=== PATIENT | male | born 1960 | race Caucasian/White ===

== ENCOUNTER 2022-05-02 22:08 | Observation (INO) | payer OTHER, SELFPAY ==
[2022-05-02 22:24] VITALS: BP 126/81; PULSE 84; RESP 16; TEMP 37.3; O2SAT 97; BMI 35.2
--- NOTE | 2022-05-02 22:42 | ED_ITS ---
HPI - Skin/Abscess/Foreign Bdy General Chief complaint: Skin/Abscess/Foreign Body Stated complaint: food stuck in throat Time Seen by Provider: 05/02/22 22:29 Source: patient Mode of arrival: Ambulatory History of Present Illness HPI narrative: 61-year-old male was eating ribs earlier this evening he states that he swallowed a piece in a cut stuck in his throat. This has happened to him in the past. He states that is because he does not have any teeth does not like to wear dentures and so he does not chew his food completely. He is needed endoscopies in the past in order to remove the food bolus. He feels like food is stuck in his upper throat. No problems breathing. At home he tried multiple things to include more water and soda without improvement of symptoms. Related Data Allergies Allergy/AdvReac Type Severity Reaction Status Date / Time No Known Drug Allergies Allergy Verified 05/02/22 22:24 Review of Systems Constitutional Constitutional: Reports system reviewed and no additional complaints, except as documented Cardiovascular Cardiovascular: Reports system reviewed and no additional complaints, except as documented Respiratory Respiratory: Reports system reviewed and no additional complaints, except as documented Gastrointestinal Gastrointestinal: Reports system reviewed and no additional complaints, except as documented Hematologic/Lymphatic On Anticoagulants: No Patient History Medical History Lymphoma Social History Smoking Status: Never smoker Smoking Status: Never smoker Substance Use Type: does not use Exam Initial Vital Signs Initial Vital Signs: Vital Signs Temperature 99.1 F 05/02/22 22:24 Pulse Rate 84 05/02/22 22:24 Respiratory Rate 16 05/02/22 22:24 Blood Pressure 126/81 05/02/22 22:24 Pulse Oximetry 97 05/02/22 22:24 Oxygen Delivery Method 05/02/22 22:24 HENMT Head: normal to inspection and normocephalic Resp Effort & Inspection: normal respiratory effort Auscultation: clear to auscultation bilaterally Cardio Rate: regular rate Rhythm: regular rhythm GI Inspection: normal to inspection Neuro General: patient alert, patient awake and moves all extremities Course Orders Ordered: ED Orders 05/02/22 22:50 Basic Metabolic Panel Stat Complete Blood Count AUTO DIFF Stat 05/02/22 23:27 Consult to General Surgery Stat 05/02/22 23:35 COVID19 -Nasal RAPID/Pre-Proc Stat Discontinued Medications Glucagon (Glucagon,Human Recombinant 1 Mg/Ml Vial) 1 mg IV NOW ONE Stop: 05/02/22 22:43 Last Admin: 05/02/22 23:00 Dose: 1 mg Documented By: SHIVANI Vital Signs Vital signs: Vital Signs - 8 hr 05/03/22 02:46 Pulse Rate 70 Respiratory Rate 18 Blood Pressure 127/78 Pulse Oximetry 94 Oxygen Delivery Method Room Air MDM - Skin/Abscess/Foreign Bdy Lab Data Attestation: I reviewed the patient's lab results. Result diagrams: 05/02/22 22:50 05/02/22 22:50 Labs: Lab Results 05/02/22 05/02/22 05/02/22 Range/Units 22:50 22:50 23:35 WBC 23.6 H (4.5-11.0) X10^3/uL RBC 3.80 L (4.5-5.9) X10^6/uL Hgb 11.6 L (13.5-17.5) g/dL Hct 34.7 L (41-53) % MCV 91.4 (80-100) fL MCH 30.4 (26-34) PG MCHC 33.3 (30-36) % RDW 20.8 H (11.6-14.8) % Plt Count 151 (150-400) X10^3/uL Neut % (Auto) Not Reportable Lymph % (Auto) Not Reportable [place] % (Auto) Not Reportable Eos % (Auto) Not Reportable Baso % (Auto) Not Reportable Lymph # (Auto) Not Reportable [place] # (Auto) Not Reportable Baso # (Auto) Not Reportable Total Counted 100 Seg Neutrophils % 10.0 L (38-70) % Lymphocytes % (Manual) 78.0 H (25-45) % Atypical Lymphs % 1.0 H ( - 0) % Monocytes % (Manual) 3.0 (2-11) % Eosinophils % (Manual) 7.0 H (2-4) % Basophils % (Manual) 1.0 (0-1) % Neutrophils # (Manual) 2360 L (7014-8787) /uL RBC Morphology See below Anisocytosis 2+ H Sodium 140 (137-145) mmol/L Potassium 5.0 (3.4-5.1) mmol/L Chloride 102 (98-107) mmol/L Carbon Dioxide 31 (22-32) mmol/L BUN 19 (9-20) mg/dL Creatinine 1.68 H (0.66-1.25) mg/dL Estimated GFR 46 L (>60) mL/min BUN/Creatinine Ratio 11.3 (6-22) Glucose 96 (80-110) mg/dL Calcium 9.7 (8.4-10.2) mg/dL SARS-CoV-2 (PCR) Negative (Negative) MDM Narrative Medical decision making narrative: Attempted glucagon here in the ER without any improvement of symptoms. I did discuss the case with Dr. Henry with general surgery who stated that he would evaluate the patient in the morning for an endoscopy. Did discuss this with the patient. Plan to be is to keep in the emergency department for the endoscopy in the morning. Patient will be admitted to surgery for continued treatment. Discharge Plan Departure Patient Disposition: Admitted as Observation Clinical Impression: Food impaction of esophagus
[2022-05-02] MEDS: GLUCAGON,HUMAN RECOMBINANT 1 MG/ML VIAL IV (23:00)
[2022-05-02 23:02] LABS: Hematocrit 34.7 % (41-53); Hemoglobin 11.6 g/dL (13.5-17.5); Mean Corpuscular HGB Conc 33.3 % (30-36); Mean Corpuscular Hemoglobin 30.4 PG (26-34); Mean Corpuscular Volume 91.4 fL (80-100); Platelet Count 151 X10^3/uL (150-400); Red Cell Distribution Width 20.8 % (11.6-14.8); White Blood Cell Count 23.6 X10^3/uL (4.5-11.0)
[2022-05-02 23:04] LABS: Add Manual Diff / Slide Review YES
--- NOTE | 2022-05-02 23:13 | PC.NURSE ---
Gave pt glucagon and soda immediately following. Failed to dislodge food bolus. Provider aware
[2022-05-02 23:25] LABS: BUN Creatinine Ratio 11.3 (6-22); Blood Urea Nitrogen 19 mg/dL (9-20); Calcium 9.7 mg/dL (8.4-10.2); Carbon Dioxide 31 mmol/L (22-32); Chloride 102 mmol/L (98-107); Estimated Glomerular Filt Rate 46 mL/min (>60); Glucose 96 mg/dL (80-110); HEMOLYSIS < 15 (0-50); Sodium 140 mmol/L (137-145)
[2022-05-02 23:36] LABS: Anisocytosis 2+; Neutrophils Absolute Manual 2360 /uL (3000-5900); Total Cells Counted 100
[2022-05-02 23:51] LABS: COVID19 -Nasal RAPID Negative (Negative)
[2022-05-03] VITALS (14 sets, daily range): BP systolic 104–127; BP diastolic 2–80; PULSE 60–70; RESP 16–18; TEMP 36.4–36.9; O2SAT 93–98; BMI 35.2
--- NOTE | 2022-05-03 01:19 | PC.NURSE ---
Pt had been eating ribs and now states food stuck in esophagus. states unable to manage secretions.
--- NOTE | 2022-05-03 13:13 | P.HP_ITS ---
History of Present Illness History of Present Illness Date Patient Seen: 05/03/22 Time Patient Seen: 13:13 Chief complaint: food stuck in throat Narrative: 61-year-old man history of previous esophageal food impaction presented to the emergency room last night with a piece of meat stuck in his throat. He has required previous esophagoduodenoscopy for relief of esophageal impaction. In he is unable to swallow the food but is tolerating his oral secretions. Patient History Medical History Amputation of one or more toes Lymphoma Pacemaker Surgical History History of bowel resection Family & Social History Social History: household members spouse Prior Living Arrangements House Safety & Behavioral: Feels Safe in Current Yes Environment Been Physically Hurt or No Threatened By a Person Tobacco & Substance use: Smoking Status Never smoker alcohol intake never Substance Use Type does not use Meds Home Medications and Allergies Allergies Allergy/AdvReac Type Severity Reaction Status Date / Time No Known Drug Allergies Allergy Verified 05/03/22 12:28 Exam Vital Signs (past 8 hours): - 05/03/22 08:23 05/03/22 08:24 05/03/22 08:24 Temperature 97.7 F Pulse Rate 67 66 Respiratory Rate 16 Blood Pressure 120/76 120/76 Pulse Oximetry 94 94 Oxygen Delivery Method 05/03/22 08:30 05/03/22 08:30 05/03/22 10:00 Temperature Pulse Rate 66 61 Respiratory Rate 18 Blood Pressure 112/66 120/76 Pulse Oximetry 94 96 Oxygen Delivery Method Room Air 05/03/22 12:00 Temperature 97.6 F Pulse Rate 67 Respiratory Rate 16 Blood Pressure 120/80 Pulse Oximetry 96 Oxygen Delivery Method Room Air Oxygen Delivery Method Room Air Narrative Exam Narrative: General adult male alert oriented no acute distress Chest nonlabored respirations Extremities warm well perfused Objective Labs Result Diagrams: 05/02/22 22:50 05/02/22 22:50 Labs: Laboratory Results - last 24 hr 05/02/22 05/02/22 05/02/22 22:50 22:50 23:35 WBC 23.6 H RBC 3.80 L Hgb 11.6 L Hct 34.7 L MCV 91.4 MCH 30.4 MCHC 33.3 RDW 20.8 H Plt Count 151 Neut % (Auto) Not Reportable Lymph % (Auto) Not Reportable [place] % (Auto) Not Reportable Eos % (Auto) Not Reportable Baso % (Auto) Not Reportable Lymph # (Auto) Not Reportable [place] # (Auto) Not Reportable Baso # (Auto) Not Reportable Total Counted 100 Seg Neutrophils % 10.0 L Lymphocytes % (Manual) 78.0 H Atypical Lymphs % 1.0 H Monocytes % (Manual) 3.0 Eosinophils % (Manual) 7.0 H Basophils % (Manual) 1.0 Neutrophils # (Manual) 2360 L RBC Morphology See below Anisocytosis 2+ H Sodium 140 Potassium 5.0 Chloride 102 Carbon Dioxide 31 BUN 19 Creatinine 1.68 H Estimated GFR 46 L BUN/Creatinine Ratio 11.3 Glucose 96 Calcium 9.7 SARS-CoV-2 (PCR) Negative Assessment & Plan Assessment and plan (1) Food impaction of esophagus: Status: Acute Assessment & Plan narrative: 61-year-old man with a food impaction of esophagus. Recommended that we proceed with esophagoduodenoscopy for therapeutic purpose. Procedural risks were discussed including bleeding, esophageal perforation, recurrence. His questions have been answered he is in agreement with this plan. Time Spent With Patient Critical Care time: I spent a total of [] minutes of critical care time on this patient's care today; this time is exclusive of procedural time.
--- NOTE | 2022-05-03 15:03 | PM.OP.EGD ---
Operative Date/Time/Diagnoses Date of procedure: 05/03/22 Time of procedure: 15:03 Pre-op diagnosis: esophageal food impaction Post-op diagnosis: same Procedure & Clinicians Study performed: Esophagoduodenoscopy with removal of impacted food bolus Same procedure as scheduled: Yes Indications: esophageal food impaction Surgeon: Kavin Henry Procedure Notes Procedure in detail: Patient brought to the supine on table. Bilateral lower extremity compression devices were applied. General anesthesia was induced she was intubated with an endotracheal tube. Time-out was performed. Bite block was placed. The endoscope was inserted into the mouth and carefully advanced to the esophagus. In the mid esophagus there was a large bolus of tightly impacted meat product. Using a combination of forceps and net the impaction was removed in pieces. Subsequently the remainder of the material could be advanced into the stomach. There were esophageal mucosal erosions in the mid/distal esophagus no active bleeding. The scope was withdrawn. The patient tolerated the operation well. Specimen(s): none sent Complications: none Post-procedure Plan for aftercare: Food should be well chewed Disposition: same day surgery
[2022-05-03] MEDS: ALBUTEROL 2.5 MG/3 ML NEB (ADULT) INH (16:48)
--- NOTE | 2022-05-03 16:48 | SUR.PHASEI ---
1640 called and LM for Dr Henry reported pt was unable to maintain 02 sats pt on RA - . Pt given IS to open and expand lungs, short term effective and 02 sats dropped soon after to - oximeter. Pt was given a albuterol tx . and same results pt had little improvement after neb tx.
--- NOTE | 2022-05-03 17:04 | SUR.PHASEI ---
1700 with continuous observation pt improved with 02 sat 92-[address] Sim at bedside to evaluate and okayed pt to go home.
== END 2022-05-03 17:10 | disposition home or self-care (01) ==
LOC: ED 05-03 07:19 → AC 05-03 08:50
PROVIDERS: Admitting Provider Surgery; Emergency Provider Emergency Medicine; PCP Internal Medicine; Referring Provider Emergency Medicine; Visit Provider Surgery
PROC: 0DJ08ZZ Inspection of Upper Intestinal Tract, Via Natural or Artificial Opening Endoscopic (ICD-10-PCS; CPT 43235; principal; 2022-05-03 12:45)
DX: T17.228A Food in pharynx causing other injury, initial encounter (principal); R00.1 Bradycardia, unspecified; Z95.0 Presence of cardiac pacemaker; Z20.822 Contact with and (suspected) exposure to COVID-19
CPT/HCPCS: 43247; 36415; 80048; 85007; 85025; 87635; 96374; 99218; 99284; C9803; G0378; J1610; J7613

== ENCOUNTER 2023-05-11 16:50 | Inpatient (IN) | payer OTHER, MEDICAID, SELFPAY ==
[2023-05-11] VITALS (47 sets, daily range): BP systolic 82–114; BP diastolic 51–73; PULSE 60–87; RESP 8–41; TEMP 37; O2SAT 93–97; BMI 32.9
--- NOTE | 2023-05-11 17:03 | DI.RAD.S_ITS ---
PROCEDURE: XR CHEST 1V INDICATIONS: suspected sepsis TECHNIQUE: One view of the chest was acquired. COMPARISON: None. FINDINGS: Surgical changes and devices: Left chest wall pacer is seen with intact leads. Lungs and pleura: Lungs are clear. No pleural effusions or pneumothorax. Mediastinum: Mediastinal contours appear normal. Heart size is normal. Bones and chest wall: No suspicious bony lesions. Overlying soft tissues appear unremarkable. IMPRESSION: No acute cardiopulmonary abnormality. Dictated by: Reji Reed M.D. on 05/11/2023 at 16:15 Approved by: Reji Reed M.D. on 05/11/2023 at 16:16
[2023-05-11] MEDS: SODIUM CHLORIDE 0.9% 1,000 ML 1000 ML IV (17:20)
[2023-05-11 17:45] LABS: Hematocrit 36.2 % (41-53); Mean Corpuscular HGB Conc 33.1 % (30-36); Mean Corpuscular Hemoglobin 25.9 PG (26-34); Mean Corpuscular Volume 78.4 fL (80-100); Platelet Count 195 X10^3/uL (150-400); Red Blood Cell Count 4.61 X10^6/uL (4.5-5.9); Red Cell Distribution Width 18.2 % (11.6-14.8); White Blood Cell Count 4.6 X10^3/uL (4.5-11.0)
[2023-05-11 17:47] LABS: Add Manual Diff / Slide Review YES
[2023-05-11 17:53] LABS: INR 1.2 (0.9-1.3); Prothrombin Time 14.1 SECONDS (10.1-12.7)
[2023-05-11 17:55] LABS: PTT Partial Thromboplastin Tim 29 SECONDS (26-36)
[2023-05-11 17:56] LABS: Creatine Kinase 73 U/L (55-170); Lactate (Lactic Acid) 1.8 mmol/L (0.7-2.1)
[2023-05-11 17:58] LABS: Alanine Aminotransferase 28 IU/L (<50); Albumin 3.8 g/dL (3.5-5.0); Albumin Globulin Ratio 1.2 (1.0-2.8); Alkaline Phosphatase 73 U/L (38-126); Aspartate Aminotransferase 33 IU/L (17-59); BUN Creatinine Ratio 13.3 (6-22); Bilirubin Total 0.8 mg/dL (0.2-1.3); Blood Urea Nitrogen 22 mg/dL (9-20); Calcium 8.7 mg/dL (8.4-10.2); Carbon Dioxide 27 mmol/L (22-32); Chloride 93 mmol/L (98-107); Estimated Glomerular Filt Rate 46 mL/min (>60); Globulin 3.1 g/dL (1.7-4.1); Glucose 151 mg/dL (80-110); HEMOLYSIS < 15 (0-50); Lipase 78 U/L (23-300); Potassium 3.5 mmol/L (3.4-5.1); Sodium 130 mmol/L (137-145); Total Protein 6.9 g/dL (6.3-8.2)
[2023-05-11 18:00] LABS: Neutrophils Absolute Manual 2714 /uL (3000-5900); Total Cells Counted 100
[2023-05-11 18:02] LABS: Anisocytosis 1+; Microcytosis 1+
[2023-05-11 18:09] LABS: Troponin I < 0.012 ng/mL (0.01-0.034)
--- NOTE | 2023-05-11 18:52 | ED.SYNCOPE ---
HPI - Syncope General Chief Complaint: Syncope Stated Complaint: Low B/P multiple syncope Time Seen by Provider: 05/11/23 18:04 Source: patient and family Mode of arrival: Ambulatory Limitations: no limitations History of Present Illness HPI narrative: Patient 62-year-old male history of lymphoma presenting today with near syncopal episode. He is found to be hypotensive with blood pressure in the 80s. reports that he was diagnosed with COVID in November and was admitted with COVID pneumonia November. Rule last couple weeks he has had cough nasal congestion upper respiratory like symptoms. He has been on 2 rounds of azithromycin and currently on Augmentin. For the last 5 days he has been on Augmentin since he started that antibiotic he has had diarrhea at least 7-8 times daily. He is not been eating or drinking very much. He denies any abdominal pain nausea vomiting. Today he got up and felt extremely lightheaded and like he might out. Denies any chest pain or palpitations. He was having fever and chills but isn't having any longer. Related Data Home Medications Medication Instructions Recorded Confirmed amoxicillin 875 mg-potassium 125 - 875 tab BID 05/11/23 05/11/23 clavulanate 125 mg tablet hydrochlorothiazide 25 mg tablet 25 mg PO DAILY 05/11/23 05/11/23 levothyroxine 25 mcg tablet 25 mcg DAILY 05/11/23 05/11/23 pantoprazole 40 mg tablet,delayed 40 mg PO DAILY 05/11/23 05/11/23 release propranolol 80 mg tablet 80 mg PO DAILY 05/11/23 05/11/23 sertraline 100 mg tablet 100 mg DAILY 05/11/23 05/11/23 zanubrutinib 80 mg capsule 80 mg PO QID 05/11/23 05/11/23 (Brukinsa) Allergies Allergy/AdvReac Type Severity Reaction Status Date / Time No Known Drug Allergies Allergy Verified 05/11/23 17:01 Review of Systems Review of Systems ROS Unobtainable: All systems reviewed & are unremarkable except as noted in HPI and below Patient History Medical History Amputation of one or more toes Lymphoma Pacemaker Surgical History History of bowel resection Social History household members: spouse Smoking Status: Never smoker alcohol intake: never Smoking Status: Never smoker Substance Use Type: does not use Exam Initial Vital Signs Initial Vital Signs: Vital Signs Temperature 98.6 F 05/11/23 16:55 Pulse Rate 87 05/11/23 16:55 Respiratory Rate 18 05/11/23 16:55 Blood Pressure 86/61 L 05/11/23 16:55 Pulse Oximetry 96 05/11/23 16:55 Oxygen Delivery Method Room Air 05/11/23 16:55 GENERAL: Alert 62-year-old male slightly weak HEENT: Head atraumatic,EOMI, pupils reactive, face symmetric, moist mucous membranes CARDIOVASCULAR: Regular rate and rhythm without murmurs, rubs or gallops. RESPIRATORY: Breath sounds equal bilaterally, no wheezes rales or rhonchi. ABDOMEN: Soft, nontender. Normoactive bowel sounds all 4 quadrants. No guarding or rebound. EXTREMITIES: Normal range of motion, no clubbing or edema. Neurovascularly intact NEUROLOGICAL: Alert and oriented x4.Normal gait and speech. SKIN: Warm, dry, no laceration, no petechiae, no rashes or lesions. Procedures Central Line Placement Right IJ: Patient Placed on Monitor/Pulse Ox: Yes MD Prep: mask, gown and gloves Central Line Prep: Chlorhexidine scrub and sterile drapes applied Local Anesthetic: lidocaine 1% Amount of anesthesia used (mL): 4 Ultrasound Used for Placement: Yes Central Line Lumen Inserted: triple Post Procedure: good blood return, all ports aspirated, flushed, capped, sterile dressing applied and line stabilization device Post Procedure X-Ray: tip of catheter in good position and no pneumothorax seen Patient Tolerated Procedure: Well and No complications Course Orders Ordered: Acetaminophen (Acetaminophen 325 Mg Tablet) 650 mg PO Q6H PRN PRN Reason: Fever/Mild Pain (1-3) Enoxaparin Sodium (Enoxaparin 40 Mg/0.4 Ml Syringe) 40 mg SUBCUT DAILY LEO NOREPINEPHRINE BITARTRATE/D5W (Levophed) 4 mg in 250 mls @ 51.029 mls/hr IV TITRATE LEO; Protocol Last Admin: 05/11/23 23:55 Dose: Not Given Documented By: GC Levofloxacin (Levofloxacin 250 Mg Tablet) 500 mg PO BEDTIME LEO Levothyroxine Sodium (Levothyroxine 25 Mcg Tablet) 25 mcg PO DAILY [facility] Naloxone HCl (Naloxone 0.4 Mg/Ml Vial) 0.2 mg IV Q2MIN PRN PRN Reason: Opiate Reversal Ondansetron HCl (Ondansetron 4 Mg/2 Ml Inj) 4 mg IV Q8HR PRN PRN Reason: Nausea And Vomiting Sertraline HCl (Sertraline 50 Mg Tablet) 100 mg PO DAILY LEO Discontinued Medications Sodium Chloride (Normal Saline 0.9%) 1,000 mls @ 1,000 mls/hr IV BOLUS ONE Stop: 05/11/23 18:02 Last Infusion: 05/11/23 18:39 Dose: 0 mls/hr Documented By: Admin: 05/11/23 17:20 Dose: 1,000 mls/hr Documented By: ELISE Sodium Chloride (Normal Saline 0.9%) 1,000 mls @ 1,000 mls/hr IV BOLUS ONE Stop: 05/11/23 19:50 Last Admin: 05/11/23 19:15 Dose: Not Given Documented By: SEAN Lactated Ringer's (Lactated Ringers) 1,000 mls @ 1,000 mls/hr IV BOLUS ONE Stop: 05/11/23 19:58 Last Infusion: 05/11/23 20:56 Dose: 0 mls/hr Documented By: Admin: 05/11/23 19:21 Dose: 1,000 mls/hr Documented By: ELISE Lactated Ringer's (Lactated Ringers) 1,000 mls @ 1,000 mls/hr IV BOLUS ONE Stop: 05/11/23 22:31 Last Infusion: 05/11/23 22:43 Dose: 0 mls/hr Documented By: Admin: 05/11/23 21:38 Dose: 1,000 mls/hr Documented By: SEAN Levofloxacin (Levaquin) 500 mg in 100 mls @ 100 mls/hr IV NOW ONE Stop: 05/11/23 23:03 Last Infusion: 05/11/23 23:20 Dose: 0 mls/hr Documented By: Admin: 05/11/23 22:19 Dose: 100 mls/hr Documented By: MAXIMILIANO Ondansetron HCl (Ondansetron 4 Mg/2 Ml Inj) 4 mg IV NOW PRN PRN Reason: Nausea And Vomiting Ondansetron HCl (Ondansetron 4 Mg Odt) 4 mg SL NOW PRN PRN Reason: Nausea And Vomiting Vital Signs Vital signs: Vital Signs - 8 hr 05/11/23 16:55 05/11/23 17:18 05/11/23 17:30 Temperature 98.6 F Pulse Rate 87 67 66 Respiratory Rate 18 20 22 Blood Pressure 86/61 L Pulse Oximetry 96 96 Oxygen Delivery Method Room Air 05/11/23 17:34 05/11/23 17:34 05/11/23 17:43 Temperature Pulse Rate 67 Respiratory Rate 23 Blood Pressure 104/57 L 106/60 Pulse Oximetry Oxygen Delivery Method 05/11/23 17:43 05/11/23 17:45 05/11/23 17:50 Temperature Pulse Rate 65 65 66 Respiratory Rate 24 21 19 Blood Pressure Pulse Oximetry 97 97 96 Oxygen Delivery Method 05/11/23 17:50 05/11/23 18:00 05/11/23 18:00 Temperature Pulse Rate 63 Respiratory Rate 22 Blood Pressure 107/66 106/65 Pulse Oximetry 97 Oxygen Delivery Method 05/11/23 18:10 05/11/23 18:10 05/11/23 18:15 Temperature Pulse Rate 66 64 Respiratory Rate 22 21 Blood Pressure 99/57 L Pulse Oximetry 97 97 Oxygen Delivery Method MDM - Syncope Lab Data 05/12/23 03:55 05/12/23 03:55 Labs: Lab Results 05/11/23 05/11/23 05/11/23 Range/Units 17:30 17:30 17:30 WBC 4.6 (4.5-11.0) X10^3/uL RBC 4.61 (4.5-5.9) X10^6/uL Hgb 12.0 L (13.5-17.5) g/dL Hct 36.2 L (41-53) % MCV 78.4 L (80-100) fL MCH 25.9 L (26-34) PG MCHC 33.1 (30-36) % RDW 18.2 H (11.6-14.8) % Plt Count 195 (150-400) X10^3/uL Neut % (Auto) Not Reportable Lymph % (Auto) Not Reportable [place] % (Auto) Not Reportable Eos % (Auto) Not Reportable Baso % (Auto) Not Reportable Lymph # (Auto) Not Reportable [place] # (Auto) Not Reportable Baso # (Auto) Not Reportable Total Counted 100 Seg Neutrophils % 59.0 (38-70) % Lymphocytes % (Manual) 33.0 (25-45) % Monocytes % (Manual) 5.0 (2-11) % Eosinophils % (Manual) 2.0 (2-4) % Basophils % (Manual) 1.0 (0-1) % Neutrophils # (Manual) 2714 L (8118-0523) /uL RBC Morphology See below Anisocytosis 1+ H Microcytosis 1+ H PT 14.1 H (10.1-12.7) SECONDS INR 1.2 (0.9-1.3) APTT 29 (26-36) SECONDS Sodium 130 L (137-145) mmol/L Potassium 3.5 (3.4-5.1) mmol/L Chloride 93 L (98-107) mmol/L Carbon Dioxide 27 (22-32) mmol/L BUN 22 H (9-20) mg/dL Creatinine 1.66 H (0.66-1.25) mg/dL Estimated GFR 46 L (>60) mL/min BUN/Creatinine Ratio 13.3 (6-22) Glucose 151 H (80-110) mg/dL Lactate (0.7-2.1) mmol/L Calcium 8.7 (8.4-10.2) mg/dL Magnesium (1.6-2.3) mg/dL Total Bilirubin 0.8 (0.2-1.3) mg/dL AST 33 (17-59) IU/L ALT 28 (<50) IU/L Alkaline Phosphatase 73 (38-126) U/L Total Creatine Kinase (55-170) U/L CK-MB (CK-2) CK-MB (CK-2) Rel Index Troponin I (0.01-0.034) ng/mL Total Protein 6.9 (6.3-8.2) g/dL Albumin 3.8 (3.5-5.0) g/dL Globulin 3.1 (1.7-4.1) g/dL Albumin/Globulin Ratio 1.2 (1.0-2.8) Lipase 78 (23-300) U/L Procalcitonin 0.30 (<0.5) ng/mL Stl C. cayetanensis PCR (Not Detect) Stool Rotavirus (PCR) (Not Detect) Stool Adenovirus (PCR) (Not Detect) Stool Astrovirus (PCR) (Not Detect) Stool Cryptosporidium PCR (Not Detect) Stl E.coli Shiga Tox PCR (Not Detect) St Sh/Enteroin Ecoli PCR (Not Detect) Stool E coli O157 PCR (Not Detect) Stl Enterotoxigenic E PCR (Not Detect) Stool EPEC (PCR) (Not Detect) Stl E. histolytica PCR (Not Detect) Stool Giardia Lamblia PCR (Not Detect) Stool Sapovirus (PCR) (Not Detect) Stl P. shigelloides PCR (Not Detect) St Y.enterocolitica PCR (Not Detect) Stool Vibrio (PCR) (Not Detect) Stl Vibrio cholerae PCR (Not Detect) Stl Enteroaggr Ecoli PCR (Not Detect) Stl Norovirus GI/GII PCR (Not Detect) Campylobacter (PCR) (Not Detect) C. difficile Tox (PCR) (Not Detect) Salmonella (PCR) (Not Detect) 05/11/23 05/11/23 05/11/23 Range/Units 17:30 17:30 20:01 WBC (4.5-11.0) X10^3/uL RBC (4.5-5.9) X10^6/uL Hgb (13.5-17.5) g/dL Hct (41-53) % MCV (80-100) fL MCH (26-34) PG MCHC (30-36) % RDW (11.6-14.8) % Plt Count (150-400) X10^3/uL Neut % (Auto) Lymph % (Auto) [place] % (Auto) Eos % (Auto) Baso % (Auto) Lymph # (Auto) [place] # (Auto) Baso # (Auto) Total Counted Seg Neutrophils % (38-70) % Lymphocytes % (Manual) (25-45) % Monocytes % (Manual) (2-11) % Eosinophils % (Manual) (2-4) % Basophils % (Manual) (0-1) % Neutrophils # (Manual) (0303-7810) /uL RBC Morphology Anisocytosis Microcytosis PT (10.1-12.7) SECONDS INR (0.9-1.3) APTT (26-36) SECONDS Sodium (137-145) mmol/L Potassium (3.4-5.1) mmol/L Chloride (98-107) mmol/L Carbon Dioxide (22-32) mmol/L BUN (9-20) mg/dL Creatinine (0.66-1.25) mg/dL Estimated GFR (>60) mL/min BUN/Creatinine Ratio (6-22) Glucose (80-110) mg/dL Lactate 1.8 (0.7-2.1) mmol/L Calcium (8.4-10.2) mg/dL Magnesium 2.0 (1.6-2.3) mg/dL Total Bilirubin (0.2-1.3) mg/dL AST (17-59) IU/L ALT (<50) IU/L Alkaline Phosphatase (38-126) U/L Total Creatine Kinase 73 (55-170) U/L CK-MB (CK-2) TNP CK-MB (CK-2) Rel Index TNP Troponin I < 0.012 (0.01-0.034) ng/mL Total Protein (6.3-8.2) g/dL Albumin (3.5-5.0) g/dL Globulin (1.7-4.1) g/dL Albumin/Globulin Ratio (1.0-2.8) Lipase (23-300) U/L Procalcitonin (<0.5) ng/mL Stl C. cayetanensis PCR Not detected (Not Detect) Stool Rotavirus (PCR) Not detected (Not Detect) Stool Adenovirus (PCR) Not detected (Not Detect) Stool Astrovirus (PCR) Not detected (Not Detect) Stool Cryptosporidium PCR Not detected (Not Detect) Stl E.coli Shiga Tox PCR Not detected (Not Detect) St Sh/Enteroin Ecoli PCR Not detected (Not Detect) Stool E coli O157 PCR Not detected (Not Detect) Stl Enterotoxigenic E PCR Not detected (Not Detect) Stool EPEC (PCR) Not detected (Not Detect) Stl E. histolytica PCR Not detected (Not Detect) Stool Giardia Lamblia PCR Not detected (Not Detect) Stool Sapovirus (PCR) Not detected (Not Detect) Stl P. shigelloides PCR Not detected (Not Detect) St Y.enterocolitica PCR Not detected (Not Detect) Stool Vibrio (PCR) Not detected (Not Detect) Stl Vibrio cholerae PCR Not detected (Not Detect) Stl Enteroaggr Ecoli PCR Not detected (Not Detect) Stl Norovirus GI/GII PCR Not detected (Not Detect) Campylobacter (PCR) Not detected (Not Detect) C. difficile Tox (PCR) Not detected (Not Detect) Salmonella (PCR) Detected H (Not Detect) Urine Dip Bedside Urine Glucose Negative Bedside Urine Bilirubin - Negative Bedside Urine Ketone - Negative Urine Specific [place] 1.015 Bedside Urine Occult Blood - Negative Bedside Urine pH 6 Bedside Urine Protein +/- 15 Bedside Urine Urobilinogen - Negative Bedside Urine Nitrite - Negative Bedside Urine Leukocytes - Negative Esterase Imaging Data Chest x-ray: Radiologist's Impression: PROCEDURE:? XR CHEST 1V ? INDICATIONS:? suspected sepsis ? TECHNIQUE:? One view of the chest was acquired.? ? COMPARISON:? None. ? FINDINGS:? ? Surgical changes and devices:? Left chest wall pacer is seen with intact leads. ? Lungs and pleura:? Lungs are clear.? No pleural effusions or pneumothorax.? ? Mediastinum:? Mediastinal contours appear normal.? Heart size is normal.? ? Bones and chest wall:? No suspicious bony lesions.? Overlying soft tissues appear unremarkable.? ? IMPRESSION:? No acute cardiopulmonary abnormality. ? ? Dictated by: Reji Reed M.D. on 05/11/2023 at 16:15? CXR #2: Radiologist's Impression: PROCEDURE:? XR CHEST 1V ? INDICATIONS:? central line placement ? TECHNIQUE:? One view of the chest was acquired.? ? COMPARISON:? [facility], , XR CHEST 1V, 05/11/2023, 17:00. ? FINDINGS:? ? Surgical changes and devices:? Dual-chamber left-sided pacemaker in good position.? Right IJ central venous line tip in the right atrium.? In consider 3 cm retraction ? Lungs and pleura:? Lungs are clear.? No pleural effusions or pneumothorax.? ? Mediastinum:? Mediastinal contours appear normal.? Heart size is normal.? ? Bones and chest wall:? No suspicious bony lesions.? Overlying soft tissues appear unremarkable.? ? IMPRESSION:? ? Right IJ central venous line tip in the right atrium.? Consider 3 cm retraction. ? No pneumothorax ? ? ? Approved by: Bhavin Cohen M.D. on 05/11/2023 at 23:58? ECG Data Interpretation: Sinus rhythm rate 64 MD interval 228 QRS [address] changes Q-wave noted in lead 3 without changes no priors to compare MDM Narrative Medical decision making narrative: Patient 62-year-old male who presents with diarrhea for about 1 week. He has been on antibiotics for upper respiratory like symptoms but those have gotten better. He is had multiple episodes of diarrhea daily with decreased oral intake. He is found be dizzy lightheaded with tension. Thought to be secondary to dehydration. Surprisingly his blood work is reassuring without evidence of LINH or significant electrolyte abnormality. He received 2 L of IV fluids in continue to have a systolic blood pressure in the 80s and low 90s and also symptomatic when he got up to the bathroom. His GI panel is positive for Salmonella. He is given IV Levaquin and more IV fluids. Pressure does improve but he never really has a systolic greater than 100 and continues to be symptomatic. 1 time blood pressure was in the 70s at which point central line was placed however Levophed was never needed. Blood pressure quickly came back up and has stabilized. Patient has had ongoing diarrhea for 5 days clinically dehydrated immunocompromise secondary to lymphoma. Patient meet admission criteria. Patient's abdomen is soft and nontender he is no focal deficits. At this time I do not see any need for any further imaging. Or work up. Maik Rosado accepts patient Discharge Plan Departure Patient Disposition: Admitted As Inpatient Clinical Impression: Gastroenteritis, Salmonella, Dehydration Admit Date/Time: 05/11/23 22:14 Admit Provider: Enzo Pleitez
[2023-05-11] MEDS: LACTATED RINGERS 1,000 ML 1000 ML IV ×2 (19:21→21:38)
[2023-05-11 21:25] LABS: Campylobacter Not Detected (Not Detect); Clostridium difficile toxin AB Not Detected (Not Detect); Enteroaggregative E.coli Not Detected (Not Detect); Enteropathogenic E.coli Not Detected (Not Detect); Enterotoxigenic E.coli It/st Not Detected (Not Detect); Plesiomonsa shigelloides Not Detected (Not Detect); Salmonella Detected (Not Detect); Shiga-like toxin-prod E.coli Not Detected (Not Detect); Vibrio Not Detected (Not Detect); Vibrio cholerae Not Detected (Not Detect); Yersinia enterocolitica Not Detected (Not Detect)
[2023-05-11 21:26] LABS: Adenovirus F 40/41 Not Detected (Not Detect); Astrovirus Not Detected (Not Detect); Cryptosporidium Not Detected (Not Detect); Cyclospora cayetanensis Not Detected (Not Detect); Entamoeba histolytica Not Detected (Not Detect); Giardia lamblia Not Detected (Not Detect); Norovirus GI/GII Not Detected (Not Detect); Rotavirus A Not Detected (Not Detect); Sapovirus Not Detected (Not Detect); Shigella/Enteroinvasive E.coli Not Detected (Not Detect)
[2023-05-11] MEDS: levoFLOXacin 500 MG/100 ML PIGGYBACK 100 MG IV (22:19)
--- NOTE | 2023-05-11 23:12 | DI.RAD.S_ITS ---
PROCEDURE: XR CHEST 1V INDICATIONS: central line placement TECHNIQUE: One view of the chest was acquired. COMPARISON: [facility], CR, XR CHEST 1V, 05/11/2023, 17:00. FINDINGS: Surgical changes and devices: Dual-chamber left-sided pacemaker in good position. Right IJ central venous line tip in the right atrium. In consider 3 cm retraction Lungs and pleura: Lungs are clear. No pleural effusions or pneumothorax. Mediastinum: Mediastinal contours appear normal. Heart size is normal. Bones and chest wall: No suspicious bony lesions. Overlying soft tissues appear unremarkable. IMPRESSION: Right IJ central venous line tip in the right atrium. Consider 3 cm retraction. No pneumothorax Approved by: Bhavin Cohen M.D. on 05/11/2023 at 23:58
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
[2023-05-12] VITALS (52 sets, daily range): BP systolic 90–170; BP diastolic 51–89; PULSE 60–95; RESP 14–37; TEMP 36.2–36.6; O2SAT 92–98; BMI 32.9
[2023-05-12 04:12] LABS: Hematocrit 29.8 % (41-53); Hemoglobin 9.9 g/dL (13.5-17.5); Mean Corpuscular HGB Conc 33.2 % (30-36); Mean Corpuscular Hemoglobin 26.4 PG (26-34); Mean Corpuscular Volume 79.4 fL (80-100); Platelet Count 114 X10^3/uL (150-400); Red Blood Cell Count 3.75 X10^6/uL (4.5-5.9); Red Cell Distribution Width 17.9 % (11.6-14.8); White Blood Cell Count 3.3 X10^3/uL (4.5-11.0)
[2023-05-12 04:13] LABS: Add Manual Diff / Slide Review YES
[2023-05-12 04:19] LABS: Alanine Aminotransferase 23 IU/L (<50); Albumin 2.9 g/dL (3.5-5.0); Albumin Globulin Ratio 1.1 (1.0-2.8); Alkaline Phosphatase 71 U/L (38-126); Aspartate Aminotransferase 27 IU/L (17-59); BUN Creatinine Ratio 18.5 (6-22); Bilirubin Total 0.5 mg/dL (0.2-1.3); Blood Urea Nitrogen 22 mg/dL (9-20); Carbon Dioxide 27 mmol/L (22-32); Chloride 97 mmol/L (98-107); Estimated Glomerular Filt Rate > 60 mL/min (>60); Globulin 2.6 g/dL (1.7-4.1); Glucose 135 mg/dL (80-110); HEMOLYSIS < 15 (0-50); Lactate (Lactic Acid) 0.9 mmol/L (0.7-2.1); Potassium 3.1 mmol/L (3.4-5.1); Sodium 130 mmol/L (137-145); Total Protein 5.5 g/dL (6.3-8.2)
[2023-05-12 04:34] LABS: Neutrophils Absolute Manual 1980 /uL (3000-5900); Total Cells Counted 100
[2023-05-12 04:35] LABS: Anisocytosis 1+; Microcytosis 1+
[2023-05-12 08:00] LABS: Magnesium 1.6 mg/dL (1.6-2.3)
[2023-05-12] MEDS: ENOXAPARIN 40 MG/0.4 ML SYRINGE SUBCUT (08:02)
[2023-05-12] MEDS: LEVOTHYROXINE 25 MCG TABLET PO (08:02)
[2023-05-12] MEDS: SERTRALINE 50 MG TABLET 100 MG PO (08:02)
--- NOTE | 2023-05-12 08:20 | PC.NURSE ---
Prior to infusing through pt's central line Dr. Fields was told about the xray placement confirmation and Dr. Fields gave the okay to infuse through the central line as is.
[2023-05-12] MEDS: POTASSIUM CHLORIDE IN WATER 10 MEQ/100 ML PIGGYBACK 100 MEQ IV ×4 (08:23→11:49)
[2023-05-12] MEDS: MAGNESIUM SULFATE 2 GM/50 ML PIGGYBACK IV (13:01)
--- NOTE | 2023-05-12 13:57 | PM.PN.1 ---
Subjective Subjective Interval history: Feeling a bit better however still having up to 6 bowel movements so far today by 2:00 p.m. No new concerns. Exam Vital Signs (past 8 hours): - 05/12/23 06:00 05/12/23 06:00 05/12/23 06:15 Temperature Pulse Rate 61 61 Respiratory Rate 17 16 Blood Pressure 100/54 L Pulse Oximetry Oxygen Flow Rate 05/12/23 06:30 05/12/23 06:30 05/12/23 06:45 Temperature Pulse Rate 66 60 Respiratory Rate 17 17 Blood Pressure 98/54 L Pulse Oximetry 93 94 Oxygen Flow Rate 05/12/23 07:00 05/12/23 07:00 05/12/23 07:15 Temperature Pulse Rate 84 74 Respiratory Rate 20 Blood Pressure 101/63 Pulse Oximetry 95 93 Oxygen Flow Rate 05/12/23 07:30 05/12/23 07:30 05/12/23 07:45 Temperature Pulse Rate 61 64 Respiratory Rate 19 23 Blood Pressure 95/53 L Pulse Oximetry 92 94 Oxygen Flow Rate 05/12/23 08:00 05/12/23 08:00 05/12/23 08:15 Temperature Pulse Rate 66 63 Respiratory Rate 17 Blood Pressure 94/51 L Pulse Oximetry 94 93 Oxygen Flow Rate 05/12/23 08:30 05/12/23 08:30 05/12/23 11:10 Temperature 97.2 F L Pulse Rate 65 60 Respiratory Rate 17 16 Blood Pressure 100/53 L 106/60 Pulse Oximetry 96 95 Oxygen Flow Rate 0 05/12/23 13:00 Temperature Pulse Rate Respiratory Rate Blood Pressure 99/61 Pulse Oximetry Oxygen Flow Rate Oxygen Delivery Method Room Air Oxygen Flow Rate 0 Narrative Exam Narrative: GEN: no acute distress HEENT: mucous membranes moist, PERRL CV: regular rate and rhythm, no murmurs PULM: clear bilaterally ABD: soft, nontender, nondistended, no organomegaly EXT: warm and well perfused with no edema, noted partial amputation right toes NEURO: awake, alert, oriented, no focal deficit Objective Labs 05/12/23 03:55 05/12/23 03:55 Labs: Laboratory Results - last 24 hr 05/11/23 05/11/23 05/11/23 17:30 17:30 17:30 WBC 4.6 RBC 4.61 Hgb 12.0 L Hct 36.2 L MCV 78.4 L MCH 25.9 L MCHC 33.1 RDW 18.2 H Plt Count 195 Neut % (Auto) Not Reportable Lymph % (Auto) Not Reportable [place] % (Auto) Not Reportable Eos % (Auto) Not Reportable Baso % (Auto) Not Reportable Lymph # (Auto) Not Reportable [place] # (Auto) Not Reportable Baso # (Auto) Not Reportable Total Counted 100 Seg Neutrophils % 59.0 Lymphocytes % (Manual) 33.0 Monocytes % (Manual) 5.0 Eosinophils % (Manual) 2.0 Basophils % (Manual) 1.0 Neutrophils # (Manual) 2714 L RBC Morphology See below Anisocytosis 1+ H Microcytosis 1+ H PT 14.1 H INR 1.2 APTT 29 Sodium 130 L Potassium 3.5 Chloride 93 L Carbon Dioxide 27 BUN 22 H Creatinine 1.66 H Estimated GFR 46 L BUN/Creatinine Ratio 13.3 Glucose 151 H Lactate Calcium 8.7 Magnesium Total Bilirubin 0.8 AST 33 ALT 28 Alkaline Phosphatase 73 Total Creatine Kinase CK-MB (CK-2) CK-MB (CK-2) Rel Index Troponin I Total Protein 6.9 Albumin 3.8 Globulin 3.1 Albumin/Globulin Ratio 1.2 Lipase 78 Procalcitonin 0.30 Stl C. cayetanensis PCR Stool Rotavirus (PCR) Stool Adenovirus (PCR) Stool Astrovirus (PCR) Stool Cryptosporidium PCR Stl E.coli Shiga Tox PCR St Sh/Enteroin Ecoli PCR Stool E coli O157 PCR Stl Enterotoxigenic E PCR Stool EPEC (PCR) Stl E. histolytica PCR Stool Giardia Lamblia PCR Stool Sapovirus (PCR) Stl P. shigelloides PCR St Y.enterocolitica PCR Stool Vibrio (PCR) Stl Vibrio cholerae PCR Stl Enteroaggr Ecoli PCR Stl Norovirus GI/GII PCR Campylobacter (PCR) C. difficile Tox (PCR) Salmonella (PCR) 05/11/23 05/11/23 05/11/23 17:30 17:30 20:01 WBC RBC Hgb Hct MCV MCH MCHC RDW Plt Count Neut % (Auto) Lymph % (Auto) [place] % (Auto) Eos % (Auto) Baso % (Auto) Lymph # (Auto) [place] # (Auto) Baso # (Auto) Total Counted Seg Neutrophils % Lymphocytes % (Manual) Monocytes % (Manual) Eosinophils % (Manual) Basophils % (Manual) Neutrophils # (Manual) RBC Morphology Anisocytosis Microcytosis PT INR APTT Sodium Potassium Chloride Carbon Dioxide BUN Creatinine Estimated GFR BUN/Creatinine Ratio Glucose Lactate 1.8 Calcium Magnesium 2.0 Total Bilirubin AST ALT Alkaline Phosphatase Total Creatine Kinase 73 CK-MB (CK-2) TNP CK-MB (CK-2) Rel Index TNP Troponin I < 0.012 Total Protein Albumin Globulin Albumin/Globulin Ratio Lipase Procalcitonin Stl C. cayetanensis PCR Not detected Stool Rotavirus (PCR) Not detected Stool Adenovirus (PCR) Not detected Stool Astrovirus (PCR) Not detected Stool Cryptosporidium PCR Not detected Stl E.coli Shiga Tox PCR Not detected St Sh/Enteroin Ecoli PCR Not detected Stool E coli O157 PCR Not detected Stl Enterotoxigenic E PCR Not detected Stool EPEC (PCR) Not detected Stl E. histolytica PCR Not detected Stool Giardia Lamblia PCR Not detected Stool Sapovirus (PCR) Not detected Stl P. shigelloides PCR Not detected St Y.enterocolitica PCR Not detected Stool Vibrio (PCR) Not detected Stl Vibrio cholerae PCR Not detected Stl Enteroaggr Ecoli PCR Not detected Stl Norovirus GI/GII PCR Not detected Campylobacter (PCR) Not detected C. difficile Tox (PCR) Not detected Salmonella (PCR) Detected H 05/12/23 05/12/23 05/12/23 03:55 03:55 03:55 WBC 3.3 L RBC 3.75 L Hgb 9.9 L Hct 29.8 L MCV 79.4 L MCH 26.4 MCHC 33.2 RDW 17.9 H Plt Count 114 L Neut % (Auto) Not Reportable Lymph % (Auto) Not Reportable [place] % (Auto) Not Reportable Eos % (Auto) Not Reportable Baso % (Auto) Not Reportable Lymph # (Auto) Not Reportable [place] # (Auto) Not Reportable Baso # (Auto) Not Reportable Total Counted 100 Seg Neutrophils % 60.0 Lymphocytes % (Manual) 33.0 Monocytes % (Manual) 6.0 Eosinophils % (Manual) 1.0 L Basophils % (Manual) Neutrophils # (Manual) 1980 L RBC Morphology See below Anisocytosis 1+ H Microcytosis 1+ H PT INR APTT Sodium 130 L Potassium 3.1 L Chloride 97 L Carbon Dioxide 27 BUN 22 H Creatinine 1.19 Estimated GFR > 60 BUN/Creatinine Ratio 18.5 Glucose 135 H Lactate 0.9 Calcium 8.0 L Magnesium Total Bilirubin 0.5 AST 27 ALT 23 Alkaline Phosphatase 71 Total Creatine Kinase CK-MB (CK-2) CK-MB (CK-2) Rel Index Troponin I Total Protein 5.5 L Albumin 2.9 L Globulin 2.6 Albumin/Globulin Ratio 1.1 Lipase Procalcitonin Stl C. cayetanensis PCR Stool Rotavirus (PCR) Stool Adenovirus (PCR) Stool Astrovirus (PCR) Stool Cryptosporidium PCR Stl E.coli Shiga Tox PCR St Sh/Enteroin Ecoli PCR Stool E coli O157 PCR Stl Enterotoxigenic E PCR Stool EPEC (PCR) Stl E. histolytica PCR Stool Giardia Lamblia PCR Stool Sapovirus (PCR) Stl P. shigelloides PCR St Y.enterocolitica PCR Stool Vibrio (PCR) Stl Vibrio cholerae PCR Stl Enteroaggr Ecoli PCR Stl Norovirus GI/GII PCR Campylobacter (PCR) C. difficile Tox (PCR) Salmonella (PCR) 05/12/23 03:55 WBC RBC Hgb Hct MCV MCH MCHC RDW Plt Count Neut % (Auto) Lymph % (Auto) [place] % (Auto) Eos % (Auto) Baso % (Auto) Lymph # (Auto) [place] # (Auto) Baso # (Auto) Total Counted Seg Neutrophils % Lymphocytes % (Manual) Monocytes % (Manual) Eosinophils % (Manual) Basophils % (Manual) Neutrophils # (Manual) RBC Morphology Anisocytosis Microcytosis PT INR APTT Sodium Potassium Chloride Carbon Dioxide BUN Creatinine Estimated GFR BUN/Creatinine Ratio Glucose Lactate Calcium Magnesium 1.6 Total Bilirubin AST ALT Alkaline Phosphatase Total Creatine Kinase CK-MB (CK-2) CK-MB (CK-2) Rel Index Troponin I Total Protein Albumin Globulin Albumin/Globulin Ratio Lipase Procalcitonin Stl C. cayetanensis PCR Stool Rotavirus (PCR) Stool Adenovirus (PCR) Stool Astrovirus (PCR) Stool Cryptosporidium PCR Stl E.coli Shiga Tox PCR St Sh/Enteroin Ecoli PCR Stool E coli O157 PCR Stl Enterotoxigenic E PCR Stool EPEC (PCR) Stl E. histolytica PCR Stool Giardia Lamblia PCR Stool Sapovirus (PCR) Stl P. shigelloides PCR St Y.enterocolitica PCR Stool Vibrio (PCR) Stl Vibrio cholerae PCR Stl Enteroaggr Ecoli PCR Stl Norovirus GI/GII PCR Campylobacter (PCR) C. difficile Tox (PCR) Salmonella (PCR) [facility] Medical History Amputation of one or more toes Lymphoma Pacemaker Surgical History History of bowel resection Social History household members: spouse Smoking Status: Never smoker alcohol intake: never Comment: . Assessment & Plan Assessment & Plan narrative: 1. Acute salmonella gastroenteritis with hypotension -noted to have significant diarrhea prior to coming to hospital -blood pressure noted to be systolic in 80s-90s with dizziness on presentation. Received boluses. Currently /61. We will continue intravenous Ringer's lactate infusion. -did get 4L IVF in the ED which is approximately 30cc/kg -ordered for levophed, will start if MAP<65, did not require this. -ordered for levaquin for salmonella infection, 500 mg daily orally 2. CLL -hold zanubrutinib due to infection 3. Hypertension -hold antihypertensives due to soft blood pressure 4. Hypothyroid -continue synthroid 5. Elevated creatnine, probable CKD stage 2 -creatinine initially of 1.66 -was 1.68 in April 2022, so suspect secondary to CKD, today is normal at 1.19 and GFR is greater than 60 -trend creatinine daily 6. s/p ppm -no bradycardia noted on tele Follow labs and clinically. CODE: Full Proxy: Katharine Perez, spouse
[2023-05-12] MEDS: LACTATED RINGERS 1,000 ML 84 ML IV (15:16)
[2023-05-12] MEDS: levoFLOXacin 250 MG TABLET 500 MG PO (22:25)
[2023-05-12] MEDS: ACETAMINOPHEN 325 MG TABLET 650 MG PO (22:25)
[2023-05-12] MEDS: MELATONIN 3 MG TABLET 6 MG PO (22:25)
[2023-05-13] VITALS (7 sets, daily range): BP systolic 101–126; BP diastolic 57–70; PULSE 64–86; RESP 17–22; TEMP 35.9–36.4; O2SAT 94–99
--- NOTE | 2023-05-13 00:58 | PC.NURSE ---
Verified with Dr. Pleitez if he would like every 1 hour or every 4 hour vital signs on pt and he is okay withe every 4 hrs; also clarified if he wants pt to be on telemetry monitoring and he stated no. Pt is in no acute distress; SBP in the 100s; MAP >65.
[2023-05-13] MEDS: LEVOTHYROXINE 25 MCG TABLET PO (05:32)
[2023-05-13 05:51] LABS: Hematocrit 28.1 % (41-53); Hemoglobin 9.2 g/dL (13.5-17.5); Mean Corpuscular HGB Conc 32.9 % (30-36); Mean Corpuscular Hemoglobin 26.4 PG (26-34); Mean Corpuscular Volume 80.2 fL (80-100); Platelet Count 78 X10^3/uL (150-400); Red Cell Distribution Width 17.6 % (11.6-14.8); White Blood Cell Count 2.5 X10^3/uL (4.5-11.0)
[2023-05-13 05:55] LABS: Add Manual Diff / Slide Review YES
[2023-05-13 06:04] LABS: Alanine Aminotransferase 20 IU/L (<50); Albumin 2.9 g/dL (3.5-5.0); Albumin Globulin Ratio 1.2 (1.0-2.8); Alkaline Phosphatase 68 U/L (38-126); Aspartate Aminotransferase 22 IU/L (17-59); BUN Creatinine Ratio 16.1 (6-22); Bilirubin Total 0.7 mg/dL (0.2-1.3); Blood Urea Nitrogen 14 mg/dL (9-20); C-Reactive Protein Quant 5.3 mg/dL (<1.0); Calcium 8.1 mg/dL (8.4-10.2); Carbon Dioxide 28 mmol/L (22-32); Chloride 100 mmol/L (98-107); Estimated Glomerular Filt Rate > 60 mL/min (>60); Globulin 2.5 g/dL (1.7-4.1); Glucose 134 mg/dL (80-110); HEMOLYSIS < 15 (0-50); Potassium 2.9 mmol/L (3.4-5.1); Sodium 134 mmol/L (137-145); Total Protein 5.4 g/dL (6.3-8.2)
[2023-05-13 06:22] LABS: Anisocytosis 1+; Neutrophils Absolute Manual 1375 /uL (3000-5900); Platelet Estimate Decreased on smear; Total Cells Counted 100
[2023-05-13] MEDS: SERTRALINE 50 MG TABLET 100 MG PO (08:40)
[2023-05-13] MEDS: ENOXAPARIN 40 MG/0.4 ML SYRINGE SUBCUT (08:40)
[2023-05-13] MEDS: POTASSIUM CHLORIDE 20 MEQ/15 ML UDC 40 MEQ PO (08:40)
--- NOTE | 2023-05-13 10:02 | PC.NURSE ---
Patient has had 3 loose stools this morning. 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 He did have a fall at home and is using his call light to call. He denies being dizzy or light headed. Ate at breakfast and denies nausea.
[2023-05-13] MEDS: LOPERAMIDE 2 MG CAPSULE 4 MG PO (12:17)
--- NOTE | 2023-05-13 12:28 | P.PN_ITS ---
Exam Vital Signs (past 8 hours): - 05/13/23 08:00 Temperature 97.2 F L Pulse Rate 81 Respiratory Rate 22 Blood Pressure 118/57 L Pulse Oximetry 99 Oxygen Delivery Method Room Air Oxygen Flow Rate 0 Narrative Exam Narrative: GEN: no acute distress HEENT: mucous membranes moist, PERRL CV: regular rate and rhythm, no murmurs PULM: clear bilaterally ABD: soft, nontender, nondistended, no organomegaly EXT: warm and well perfused with no edema, noted partial amputation right toes NEURO: awake, alert, oriented, no focal deficit Objective Labs 05/13/23 05:00 05/13/23 05:00 Labs: Laboratory Results - last 24 hr 05/13/23 05/13/23 05:00 05:00 WBC 2.5 L RBC 3.50 L Hgb 9.2 L Hct 28.1 L MCV 80.2 MCH 26.4 MCHC 32.9 RDW 17.6 H Plt Count 78 L Neut % (Auto) Not Reportable Lymph % (Auto) Not Reportable [place] % (Auto) Not Reportable Eos % (Auto) Not Reportable Baso % (Auto) Not Reportable Lymph # (Auto) Not Reportable [place] # (Auto) Not Reportable Baso # (Auto) Not Reportable Total Counted 100 Seg Neutrophils % 55.0 Lymphocytes % (Manual) 37.0 Monocytes % (Manual) 6.0 Basophils % (Manual) 2.0 H Neutrophils # (Manual) 1375 L Platelet Estimate Decreased on smear RBC Morphology See below Anisocytosis 1+ H Sodium 134 L Potassium 2.9 L Chloride 100 Carbon Dioxide 28 BUN 14 Creatinine 0.87 Estimated GFR > 60 BUN/Creatinine Ratio 16.1 Glucose 134 H Calcium 8.1 L Total Bilirubin 0.7 AST 22 ALT 20 Alkaline Phosphatase 68 C-Reactive Protein 5.3 H Total Protein 5.4 L Albumin 2.9 L Globulin 2.5 Albumin/Globulin Ratio 1.2 PFSH Medical History Amputation of one or more toes Lymphoma Pacemaker Surgical History History of bowel resection Social History household members: spouse Smoking Status: Never smoker alcohol intake: never Assessment & Plan Assessment & Plan narrative: 1. Acute salmonella gastroenteritis with hypotension initially -noted to have significant diarrhea prior to coming to hospital -blood pressure noted to be systolic in 80s-90s with dizziness on presentation.? Received boluses.? Currently 113/70.? -did get 4L IVF in the ED which is approximately 30cc/kg -ordered for levophed, will start if MAP<65, did not require this. -ordered for levaquin for salmonella infection, 500 mg daily orally -loperamide order to control amount of diarrhea -C reactive protein decreasing 2. CLL -hold zanubrutinib due to infection 3. Hypertension -hold antihypertensives due to soft blood pressure 4. Hypothyroid -continue synthroid 5. Elevated creatnine, probable CKD stage 2 -creatinine initially of 1.66 -was 1.68 in April 2022, suspected secondary to CKD, resolved to be consistently normal -trend creatinine daily, today is normal 6. s/p ppm -no bradycardia noted on tele 7. Hypokalemia. Replace Follow labs and clinically. CODE: Full Proxy: Katharine Perez, spouse
[2023-05-13] MEDS: LACTATED RINGERS 1,000 ML 84 ML IV (13:17)
--- NOTE | 2023-05-13 15:09 | CM.DANOTE ---
DCP Assessment: Patient is a 62yo Male here under inpatient status for salmonella and gastroenteritis. PCP Rina Edwards Payer: [facility] and self pay COLLEGE OR UNIVERSITY DEPARTMENT HEAD reviewed EMR. From nursing staff, likely no needs from this team at this time. COLLEGE OR UNIVERSITY DEPARTMENT HEAD entered room and introduced self and role. Patient was sitting up in bed and appeared A/Ox4. Patient was accompanied by spouse, Katharine ([phone]). Patient and spouse live in [place] with their dog. Patient reports being independent at baseline and ambulating well. Spouse reports he has a FWW and cane at home that he could use if needed. Patient does not drive. Patient has 17 stairs in his house. Patient reports he's been up and moving with assistance from [employer] laboratory immunologist. Patient reports that if needed, he would be open to [facility], which they have used in the past. Patient and spouse express verbal understanding that HH might not be determined medically necessary. Spouse has concerns regarding his lymphoma medication, his sinuses, and his other medical needs. [employer]GE [employer] UNIV[employer]ITY DEPARTMENT HEAD acted within area of competency and directed questions to the provider or nurse. Spouse asked if he could get a prescription for the hospital pads to be delivered to the house upon d/c. COLLEGE [employer] UNIVERSITY DEPARTMENT HEAD referred patient and spouse to medical team. COLLEGE [employer] UNIV[employer]ITY DEPARTMENT HEAD let provider know patient and spouse have questions. Plan: d/c home with spouse in POV when medically stable. CM team will continue to follow for needs. CHRISTOPHER Ching Discharge Planning/Care Management Advanced directive, confirm from FAMILY Start: 05/12/23 13:36 Freq: Q24H Status: Active Protocol: Document 05/12/23 13:36 LW (Rec: 05/12/23 14:17 LW [id number]) Advance Directive, confirm on record Time 14:17 Person contacted Copy received No CM Discharge Assessment Start: 05/13/23 14:56 Freq: Status: Active Protocol: Document 05/13/23 14:56 SL (Rec: 05/13/23 15:06 [id number]) Discharge Planning Assessment Assigned Manager Leadership Development CHRISTOPHER Khanna DPOA/Assigned Designee Name Katharine Perez (spouse) Contact Information [phone] Advance Directives? No History Provided By Patient,Family Member,Medical Record Prior Living Arrangements House Household Members spouse Type of transporation used prior to Relies on Others admit Comment provides transportation Independent with ADL's Yes Is patient alert and oriented? Yes DME Already Rented / Owned FWW / Walker,Cane Comment owns but does not use Comment open to [facility] if needed. [facility] in [facility] past. Barriers to Discharge No Discharge Plan Home SNF/HH Preference [facility] if necessary Whiteboard Updated in Patient Room with Yes name and ext. # of Manager Leadership Development Review Status In Process Next Review Type Continued Stay Review
[2023-05-13] MEDS: POTASSIUM CHLORIDE 20 MEQ TAB 40 MEQ PO (16:16)
[2023-05-13] MEDS: levoFLOXacin 250 MG TABLET 500 MG PO (21:03)
[2023-05-13 22:13] LABS: HEMOLYSIS < 15 (0-50); Potassium 3.2 mmol/L (3.4-5.1)
[2023-05-13 22:16] LABS: Magnesium 1.6 mg/dL (1.6-2.3)
[2023-05-14] MEDS: LACTATED RINGERS 1,000 ML 84 ML IV (01:32)
[2023-05-14 04:00] VITALS: BP 104/62; PULSE 65; RESP 20; TEMP 36.8; O2SAT 95
[2023-05-14] MEDS: LEVOTHYROXINE 25 MCG TABLET PO (05:57)
[2023-05-14 06:26] LABS: Add Manual Diff / Slide Review YES; Hematocrit 27.6 % (41-53); Hemoglobin 9.1 g/dL (13.5-17.5); Mean Corpuscular HGB Conc 33.1 % (30-36); Mean Corpuscular Hemoglobin 26.3 PG (26-34); Mean Corpuscular Volume 79.6 fL (80-100); Platelet Count 81 X10^3/uL (150-400); Red Blood Cell Count 3.47 X10^6/uL (4.5-5.9); Red Cell Distribution Width 17.7 % (11.6-14.8); White Blood Cell Count 2.5 X10^3/uL (4.5-11.0)
[2023-05-14 06:50] LABS: Alanine Aminotransferase 17 IU/L (<50); Albumin 2.8 g/dL (3.5-5.0); Albumin Globulin Ratio 1.2 (1.0-2.8); Alkaline Phosphatase 67 U/L (38-126); Aspartate Aminotransferase 22 IU/L (17-59); BUN Creatinine Ratio 9.5 (6-22); Bilirubin Total 0.6 mg/dL (0.2-1.3); Blood Urea Nitrogen 7 mg/dL (9-20); C-Reactive Protein Quant 3.3 mg/dL (<1.0); Carbon Dioxide 31 mmol/L (22-32); Chloride 103 mmol/L (98-107); Estimated Glomerular Filt Rate > 60 mL/min (>60); Globulin 2.4 g/dL (1.7-4.1); Glucose 99 mg/dL (80-110); HEMOLYSIS < 15 (0-50); Potassium 3.5 mmol/L (3.4-5.1); Sodium 137 mmol/L (137-145); Total Protein 5.2 g/dL (6.3-8.2)
[2023-05-14 07:02] LABS: Anisocytosis 1+; Neutrophils Absolute Manual 925 /uL (3000-5900); Total Cells Counted 100
[2023-05-14 07:40] VITALS: O2SAT 96
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
[2023-05-14] MEDS: SERTRALINE 50 MG TABLET 100 MG PO (09:23)
--- NOTE | 2023-05-14 09:24 | CM.DPC ---
DCP Continued: ASSISTANT STORE DIRECTOR reviewed EMR. ASSISTANT STORE DIRECTOR entered room and reintroduced self and role. Patient was resting and eating breakfast and appeared A/Ox4. Patient reports being excited to go home. Patient reports verbal understanding that he will not need HH. Patient reports is on the way to come take him home. ASSISTANT STORE DIRECTOR told patient that if he wanted a prescription for the hospital pads for bowel movements, that will have to go through his PCP. Patient expressed verbal understanding and appeared grateful for the information. Plan: d/c home today with spouse in POV. CM team will continue to follow with needs. CHRISTOPHER Ching
--- NOTE | 2023-05-14 12:31 | PC.NURSE ---
Discharge: Pt feels ready to d/c to home. D/c instructions reviewed, instructed on hand washing and the use of bleach for cleaning. Reviewed diet. Spouse present at time of teaching. Questions answered. Pt d/c to home via auto with spouse.
== END 2023-05-14 11:17 | disposition home or self-care (01) | DRG 872 ==
LOC: ED 18:04 → AC 22:15
PROVIDERS: Emergency Medicine; Neuromusculoskeletal Medicine, Sports Medicine; Admitting Provider Internal Medicine; Emergency Provider Internal Medicine; PCP Internal Medicine; Referring Provider Emergency Medicine; Visit Provider Internal Medicine
DX: A41.9 Sepsis, unspecified organism (principal); A02.0 Salmonella enteritis; C91.10 Chronic lymphocytic leukemia of B-cell type not having achieved remission; N17.9 Acute kidney failure, unspecified; D61.818 Other pancytopenia; E03.9 Hypothyroidism, unspecified; E87.6 Hypokalemia; D69.6 Thrombocytopenia, unspecified; E86.0 Dehydration; R65.20 Severe sepsis without septic shock; I10 Essential (primary) hypertension; Z20.822 Contact with and (suspected) exposure to COVID-19; Z95.0 Presence of cardiac pacemaker
CPT/HCPCS: 36415; 36556; 71045; 80053; 81003; 82550; 83605; 83690; 83735; 84132; 84145; 84484; 85007; 85025; 85610; 85730; 86140; 87040; 87507; 93005; 96361; 96365; 96366; 96367; 99284; 99285; J1650; J1956; J3475

== ENCOUNTER 2023-06-24 16:26 | Inpatient (IN) | payer OTHER, MEDICAID, SELFPAY ==
[2023-05-12 13:30] VITALS: BMI 32.9
[2023-06-24] VITALS (46 sets, daily range): BP systolic 77–147; BP diastolic 51–93; PULSE 60–94; RESP 14–34; TEMP 36.8; O2SAT 88–100; BMI 32.9
--- NOTE | 2023-06-24 16:42 | DI.RAD.S_ITS ---
PROCEDURE: XR CHEST 1V INDICATIONS: chest pain TECHNIQUE: One view of the chest was acquired. COMPARISON: [facility], CR, XR CHEST 1V, 05/11/2023, 23:10. FINDINGS: Surgical changes and devices: Left chest wall pacemaker leads are in the region of right atrium and right ventricle. Lungs and pleura: Trace left pleural effusion is seen. No focal infiltrate. No pneumothorax. Right lung is clear. Mediastinum: Mediastinal contours appear normal. Heart size is enlarged. Bones and chest wall: No suspicious bony lesions. Overlying soft tissues appear unremarkable. IMPRESSION: Trace left pleural effusion. No focal infiltrate or pneumothorax. Dictated by: Marquez Mcclain M.D. on 06/24/2023 at 17:16 Approved by: Marquez Mcclain M.D. on 06/24/2023 at 17:16
[2023-06-24] MEDS: SODIUM CHLORIDE 0.9% 1,000 ML 1000 ML IV ×3 (17:32→21:45)
[2023-06-24 17:51] LABS: Add Manual Diff / Slide Review YES; Hematocrit 37.9 % (41-53); Hemoglobin 12.6 g/dL (13.5-17.5); Mean Corpuscular HGB Conc 33.2 % (30-36); Mean Corpuscular Hemoglobin 27.1 PG (26-34); Mean Corpuscular Volume 81.5 fL (80-100); Platelet Count 202 X10^3/uL (150-400); Red Blood Cell Count 4.66 X10^6/uL (4.5-5.9); Red Cell Distribution Width 20.3 % (11.6-14.8); White Blood Cell Count 7.2 X10^3/uL (4.5-11.0)
[2023-06-24 17:59] LABS: INR 1.1 (0.9-1.3); Prothrombin Time 12.7 SECONDS (10.1-12.7)
[2023-06-24 18:02] LABS: PTT Partial Thromboplastin Tim 31 SECONDS (26-36)
--- NOTE | 2023-06-24 18:02 | PC.NURSE ---
Pt reporting pain in his left mid back after one of his falls on Saturday night. Denies head pain or pain anywhere else.
[2023-06-24 18:07] LABS: Neutrophils Absolute Manual 2016 /uL (3000-5900); Total Cells Counted 100
[2023-06-24 18:08] LABS: Anisocytosis 1+
[2023-06-24 18:09] LABS: Alanine Aminotransferase 20 IU/L (<50); Albumin 4.3 g/dL (3.5-5.0); Albumin Globulin Ratio 1.5 (1.0-2.8); Alkaline Phosphatase 82 U/L (38-126); Aspartate Aminotransferase 39 IU/L (17-59); BUN Creatinine Ratio 15.4 (6-22); Bilirubin Total 0.9 mg/dL (0.2-1.3); Blood Urea Nitrogen 24 mg/dL (9-20); Calcium 8.9 mg/dL (8.4-10.2); Carbon Dioxide 29 mmol/L (22-32); Chloride 94 mmol/L (98-107); Creatine Kinase 21 U/L (55-170); Estimated Glomerular Filt Rate 50 mL/min (>60); Globulin 2.9 g/dL (1.7-4.1); Glucose 112 mg/dL (80-110); Lipase 35 U/L (23-300); Magnesium 1.9 mg/dL (1.6-2.3); Ovalocytes 1+; Potassium 3.5 mmol/L (3.4-5.1); Sodium 132 mmol/L (137-145); Total Protein 7.2 g/dL (6.3-8.2)
[2023-06-24 18:20] LABS: Troponin I < 0.012 ng/mL (0.01-0.034)
[2023-06-24 18:29] LABS: HEMOLYSIS 54 (0-50)
[2023-06-24 18:51] LABS: Granular Casts Urine 10-30/LPF; Hyaline Casts Urine >100/LPF; Mucus Urine 3+ (Negative)
[2023-06-24 18:52] LABS: Bacteria Urine Moderate (10-30); RBC Urine 0-1/HPF (0-5/HPF); Squamous Epithelial Cell Urine 1-5 /HPF (0-5/HPF); WBC Urine 1-5/HPF (0-5/HPF)
--- NOTE | 2023-06-24 18:53 | ED.GENADULT ---
HPI - General Adult General Chief complaint: Syncope Stated complaint: Syncope hit head Time Seen by Provider: 06/24/23 18:10 Source: patient and EMS Mode of arrival: EMS History of Present Illness HPI narrative: 62-year-old male nonsmoker with history of lymphoma, prior gastroenteritis from Salmonella presents by EMS for evaluation of profuse diarrhea for the past 3 weeks or so. He states he goes multiple times per day and has had multiple episodes of feeling dizzy, weak and lightheaded and today upon standing had a syncopal episode in which he fell and struck his head. Vomiting, significant headache, blurred vision or trouble with speech. He denies chest pain or shortness of breath. He denies abdominal pain or urinary complaints. He has not had antibiotics recently, denies international travel or exposure to bad food or other ill persons. Related Data Home Medications Medication Instructions Recorded Confirmed levothyroxine 25 mcg tablet 25 mcg DAILY 05/11/23 05/11/23 pantoprazole 40 mg tablet,delayed 40 mg PO DAILY 05/11/23 05/11/23 release propranolol 80 mg tablet 80 mg PO DAILY 05/11/23 05/11/23 sertraline 100 mg tablet 100 mg DAILY 05/11/23 05/11/23 zanubrutinib 80 mg capsule 80 mg PO QID 05/11/23 05/11/23 (Brukinsa) Allergies Allergy/AdvReac Type Severity Reaction Status Date / Time No Known Drug Allergies Allergy Verified 05/11/23 17:01 Review of Systems Review of Systems Narrative: GENERAL: See HPI HEENT: Denies sinus pain, ear pain, sore throat, difficulty swallowing, dizziness. RESPIRATORY: Denies dyspnea, cough, wheezing, hemoptysis, sputum. CARDIOVASCULAR: Denies chest pain, palpitations, orthopnea, edema, GASTROINTESTINAL: See HPI : Denies dysuria, frequency, incontinence, hematuria, urinary retention. MUSCULOSKELETAL: denies weakness, joint pain, or bony pain SKIN: Denies rash, skin lesions, or other NEUROLOGIC: See HPI PSYCHIATRIC: No concerning psychosocial issues. 12 point review of systems is negative except for those stated above Patient History Medical History Amputation of one or more toes Lymphoma Pacemaker Surgical History History of bowel resection Social History household members: spouse Smoking Status: Never smoker alcohol intake: never Smoking Status: Never smoker Substance Use Type: does not use Exam Narrative Exam Narrative: GENERAL: [62] year old patient appears stated age. Well-developed patient, in mild distress. HEAD: Atraumatic. Normocephalic. EYES: Pupils equal round and reactive. Extraocular motions intact. No scleral icterus. No injection or drainage. ENT: Dry mucous membranes Nose without bleeding, purulent drainage. Throat without erythema, tonsillar hypertrophy or exudate. Airway patent. NECK: Trachea midline. Non tender CARDIOVASCULAR: Regular rate and rhythm without murmurs, gallops, or rubs. RESPIRATORY: Clear to auscultation. Breath sounds equal bilaterally. No wheezes, rales, or rhonchi. GASTROINTESTINAL: Abdomen soft, non-tender, nondistended. EXTREMITIES: No edema or joint tenderness. BACK: Nontender without deformity or crepitance. No flank tenderness. NEURO: AOx3. SKIN: Poor skin turgor No rash or erythema of visible areas Initial Vital Signs Initial Vital Signs: Vital Signs Temperature 98.2 F 06/24/23 16:34 Pulse Rate 78 06/24/23 16:34 Respiratory Rate 20 06/24/23 16:34 Blood Pressure 115/74 06/24/23 16:34 Pulse Oximetry 95 06/24/23 16:34 Oxygen Delivery Method Room Air 06/24/23 16:34 Course Orders Ordered: ED Orders 06/24/23 17:40 Complete Blood Count AUTO DIFF Stat Comprehensive Metabolic Panel Stat Lipase Stat Magnesium Stat PTT Partial Thromboplastin Mars Stat Prothrombin Time INR Stat Troponin & CK Cardiac Panel Stat 06/24/23 17:51 Urine Microscopic Stat 06/24/23 17:59 GI Panel (Film Array) Stat Discontinued Medications Aspirin (Aspirin 81 Mg Chew Tab) 324 mg PO NOW ONE Stop: 06/24/23 16:43 Last Admin: 06/24/23 17:14 Dose: Not Given Documented By: ARMAND Sodium Chloride (Normal Saline 0.9%) 1,000 mls @ 1,000 mls/hr IV BOLUS ONE Stop: 06/24/23 18:08 Last Infusion: 06/24/23 18:55 Dose: 0 mls/hr Documented By: Admin: 06/24/23 17:32 Dose: 1,000 mls/hr Documented By: ARMAND Sodium Chloride (Normal Saline 0.9%) 1,000 mls @ 1,000 mls/hr IV BOLUS ONE Stop: 06/24/23 20:32 Last Infusion: 06/24/23 21:25 Dose: 0 mls/hr Documented By: Admin: 06/24/23 19:46 Dose: 1,000 mls/hr Documented By: ARMAND Levofloxacin (Levaquin) 750 mg in 150 mls @ 100 mls/hr IV NOW ONE Stop: 06/24/23 21:06 Last Infusion: 06/24/23 21:25 Dose: 0 mls/hr Documented By: Admin: 06/24/23 19:44 Dose: 100 mls/hr Documented By: ARMAND Sodium Chloride (Normal Saline 0.9%) 1,000 mls @ 1,000 mls/hr IV BOLUS ONE Stop: 06/24/23 22:43 Last Infusion: 06/24/23 23:08 Dose: 0 mls/hr Documented By: Admin: 06/24/23 21:45 Dose: 1,000 mls/hr Documented By: JANICE Reevaluation(s) Reevaluation #1: Patient feeling better after fluids Vital Signs Vital signs: Vital Signs - 8 hr 06/24/23 18:00 06/24/23 18:00 06/24/23 18:16 Pulse Rate 71 Pulse Rate [Orthostatic Lying] Pulse Rate [Orthostatic Sitting] Pulse Rate [Orthostatic Standing] Respiratory Rate 18 Blood Pressure 143/88 H 133/90 Blood Pressure [Orthostatic Lying] Blood Pressure [Orthostatic Sitting] Blood Pressure [Orthostatic Standing] Pulse Oximetry 96 Oxygen Delivery Method 06/24/23 18:16 06/24/23 18:43 06/24/23 18:30 Pulse Rate 94 H Pulse Rate [Orthostatic Lying] 74 Pulse Rate [Orthostatic Sitting] 80 Pulse Rate [Orthostatic Standing] 85 Respiratory Rate 22 Blood Pressure 109/74 Blood Pressure [Orthostatic Lying] 117/71 Blood Pressure [Orthostatic Sitting] 110/73 Blood Pressure [Orthostatic Standing] 104/62 Pulse Oximetry 97 Oxygen Delivery Method 06/24/23 18:30 06/24/23 18:38 06/24/23 18:38 Pulse Rate 80 78 Pulse Rate [Orthostatic Lying] Pulse Rate [Orthostatic Sitting] Pulse Rate [Orthostatic Standing] Respiratory Rate 21 21 Blood Pressure 117/71 Blood Pressure [Orthostatic Lying] Blood Pressure [Orthostatic Sitting] Blood Pressure [Orthostatic Standing] Pulse Oximetry 97 98 Oxygen Delivery Method 06/24/23 18:40 06/24/23 18:40 06/24/23 18:41 Pulse Rate 80 87 Pulse Rate [Orthostatic Lying] Pulse Rate [Orthostatic Sitting] Pulse Rate [Orthostatic Standing] Respiratory Rate 20 34 H Blood Pressure 110/73 Blood Pressure [Orthostatic Lying] Blood Pressure [Orthostatic Sitting] Blood Pressure [Orthostatic Standing] Pulse Oximetry 99 88 L Oxygen Delivery Method 06/24/23 18:41 06/24/23 18:45 06/24/23 18:45 Pulse Rate 70 Pulse Rate [Orthostatic Lying] Pulse Rate [Orthostatic Sitting] Pulse Rate [Orthostatic Standing] Respiratory Rate 18 Blood Pressure 104/62 131/76 Blood Pressure [Orthostatic Lying] Blood Pressure [Orthostatic Sitting] Blood Pressure [Orthostatic Standing] Pulse Oximetry 98 Oxygen Delivery Method 06/24/23 19:00 06/24/23 19:00 06/24/23 21:40 Pulse Rate 74 Pulse Rate [Orthostatic Lying] 60 Pulse Rate [Orthostatic Sitting] 77 Pulse Rate [Orthostatic Standing] 84 Respiratory Rate 26 H Blood Pressure 110/69 Blood Pressure [Orthostatic Lying] 105/64 Blood Pressure [Orthostatic Sitting] 91/54 L Blood Pressure [Orthostatic Standing] 77/51 L Pulse Oximetry 96 Oxygen Delivery Method Room Air 06/24/23 19:15 06/24/23 19:15 06/24/23 19:30 Pulse Rate 65 Pulse Rate [Orthostatic Lying] Pulse Rate [Orthostatic Sitting] Pulse Rate [Orthostatic Standing] Respiratory Rate 16 Blood Pressure 121/71 131/75 Blood Pressure [Orthostatic Lying] Blood Pressure [Orthostatic Sitting] Blood Pressure [Orthostatic Standing] Pulse Oximetry 93 Oxygen Delivery Method 06/24/23 19:30 06/24/23 19:47 06/24/23 19:47 Pulse Rate 64 84 Pulse Rate [Orthostatic Lying] Pulse Rate [Orthostatic Sitting] Pulse Rate [Orthostatic Standing] Respiratory Rate 21 20 Blood Pressure 127/67 Blood Pressure [Orthostatic Lying] Blood Pressure [Orthostatic Sitting] Blood Pressure [Orthostatic Standing] Pulse Oximetry 97 98 Oxygen Delivery Method 06/24/23 20:00 06/24/23 20:00 06/24/23 20:15 Pulse Rate 63 Pulse Rate [Orthostatic Lying] Pulse Rate [Orthostatic Sitting] Pulse Rate [Orthostatic Standing] Respiratory Rate 22 Blood Pressure 128/70 126/67 Blood Pressure [Orthostatic Lying] Blood Pressure [Orthostatic Sitting] Blood Pressure [Orthostatic Standing] Pulse Oximetry 98 Oxygen Delivery Method 06/24/23 20:15 06/24/23 20:30 06/24/23 20:30 Pulse Rate 60 61 Pulse Rate [Orthostatic Lying] Pulse Rate [Orthostatic Sitting] Pulse Rate [Orthostatic Standing] Respiratory Rate 14 15 Blood Pressure 104/55 L Blood Pressure [Orthostatic Lying] Blood Pressure [Orthostatic Sitting] Blood Pressure [Orthostatic Standing] Pulse Oximetry 97 98 Oxygen Delivery Method 06/24/23 20:45 06/24/23 20:45 06/24/23 21:00 Pulse Rate 61 Pulse Rate [Orthostatic Lying] Pulse Rate [Orthostatic Sitting] Pulse Rate [Orthostatic Standing] Respiratory Rate 16 Blood Pressure 103/59 L 116/63 Blood Pressure [Orthostatic Lying] Blood Pressure [Orthostatic Sitting] Blood Pressure [Orthostatic Standing] Pulse Oximetry 97 Oxygen Delivery Method 06/24/23 21:00 06/24/23 21:15 06/24/23 21:15 Pulse Rate 60 62 Pulse Rate [Orthostatic Lying] Pulse Rate [Orthostatic Sitting] Pulse Rate [Orthostatic Standing] Respiratory Rate 17 15 Blood Pressure 116/68 Blood Pressure [Orthostatic Lying] Blood Pressure [Orthostatic Sitting] Blood Pressure [Orthostatic Standing] Pulse Oximetry 98 98 Oxygen Delivery Method 06/24/23 21:30 06/24/23 21:30 06/24/23 21:35 Pulse Rate 60 61 Pulse Rate [Orthostatic Lying] Pulse Rate [Orthostatic Sitting] Pulse Rate [Orthostatic Standing] Respiratory Rate 16 17 Blood Pressure 111/64 Blood Pressure [Orthostatic Lying] Blood Pressure [Orthostatic Sitting] Blood Pressure [Orthostatic Standing] Pulse Oximetry 98 97 Oxygen Delivery Method 06/24/23 21:35 06/24/23 21:36 06/24/23 21:36 Pulse Rate 76 Pulse Rate [Orthostatic Lying] Pulse Rate [Orthostatic Sitting] Pulse Rate [Orthostatic Standing] Respiratory Rate 19 Blood Pressure 105/64 91/54 L Blood Pressure [Orthostatic Lying] Blood Pressure [Orthostatic Sitting] Blood Pressure [Orthostatic Standing] Pulse Oximetry 97 Oxygen Delivery Method 06/24/23 21:37 06/24/23 21:37 06/24/23 21:38 Pulse Rate 85 Pulse Rate [Orthostatic Lying] Pulse Rate [Orthostatic Sitting] Pulse Rate [Orthostatic Standing] Respiratory Rate 24 Blood Pressure 77/51 L 118/64 Blood Pressure [Orthostatic Lying] Blood Pressure [Orthostatic Sitting] Blood Pressure [Orthostatic Standing] Pulse Oximetry 99 Oxygen Delivery Method 06/24/23 21:38 06/24/23 21:46 06/24/23 21:46 Pulse Rate 67 75 Pulse Rate [Orthostatic Lying] Pulse Rate [Orthostatic Sitting] Pulse Rate [Orthostatic Standing] Respiratory Rate 20 19 Blood Pressure 138/93 H Blood Pressure [Orthostatic Lying] Blood Pressure [Orthostatic Sitting] Blood Pressure [Orthostatic Standing] Pulse Oximetry 99 99 Oxygen Delivery Method 06/24/23 22:00 06/24/23 22:00 06/24/23 22:15 Pulse Rate 63 77 Pulse Rate [Orthostatic Lying] Pulse Rate [Orthostatic Sitting] Pulse Rate [Orthostatic Standing] Respiratory Rate 21 24 Blood Pressure 125/73 Blood Pressure [Orthostatic Lying] Blood Pressure [Orthostatic Sitting] Blood Pressure [Orthostatic Standing] Pulse Oximetry 100 98 Oxygen Delivery Method Room Air 06/24/23 22:15 06/24/23 22:30 06/24/23 22:31 Pulse Rate 60 60 Pulse Rate [Orthostatic Lying] Pulse Rate [Orthostatic Sitting] Pulse Rate [Orthostatic Standing] Respiratory Rate 24 20 Blood Pressure 147/83 H Blood Pressure [Orthostatic Lying] Blood Pressure [Orthostatic Sitting] Blood Pressure [Orthostatic Standing] Pulse Oximetry 98 99 Oxygen Delivery Method 06/24/23 22:31 06/24/23 22:45 06/24/23 22:45 Pulse Rate 70 Pulse Rate [Orthostatic Lying] Pulse Rate [Orthostatic Sitting] Pulse Rate [Orthostatic Standing] Respiratory Rate 26 H Blood Pressure 105/69 125/77 Blood Pressure [Orthostatic Lying] Blood Pressure [Orthostatic Sitting] Blood Pressure [Orthostatic Standing] Pulse Oximetry 99 Oxygen Delivery Method 06/24/23 23:00 06/24/23 23:00 06/24/23 23:15 Pulse Rate 60 Pulse Rate [Orthostatic Lying] Pulse Rate [Orthostatic Sitting] Pulse Rate [Orthostatic Standing] Respiratory Rate 15 Blood Pressure 116/68 114/56 L Blood Pressure [Orthostatic Lying] Blood Pressure [Orthostatic Sitting] Blood Pressure [Orthostatic Standing] Pulse Oximetry 97 Oxygen Delivery Method 06/24/23 23:15 06/24/23 23:30 06/24/23 23:30 Pulse Rate 61 60 Pulse Rate [Orthostatic Lying] Pulse Rate [Orthostatic Sitting] Pulse Rate [Orthostatic Standing] Respiratory Rate 14 17 Blood Pressure 120/67 Blood Pressure [Orthostatic Lying] Blood Pressure [Orthostatic Sitting] Blood Pressure [Orthostatic Standing] Pulse Oximetry 99 96 Oxygen Delivery Method 06/24/23 23:53 06/24/23 23:45 06/24/23 23:45 Pulse Rate 63 Pulse Rate [Orthostatic Lying] 68 Pulse Rate [Orthostatic Sitting] 73 Pulse Rate [Orthostatic Standing] Respiratory Rate 21 Blood Pressure 112/64 Blood Pressure [Orthostatic Lying] 117/68 Blood Pressure [Orthostatic Sitting] 91/60 Blood Pressure [Orthostatic Standing] Pulse Oximetry 95 Oxygen Delivery Method 06/24/23 23:48 06/24/23 23:48 06/24/23 23:50 Pulse Rate 69 77 Pulse Rate [Orthostatic Lying] Pulse Rate [Orthostatic Sitting] Pulse Rate [Orthostatic Standing] Respiratory Rate 18 26 H Blood Pressure 117/68 Blood Pressure [Orthostatic Lying] Blood Pressure [Orthostatic Sitting] Blood Pressure [Orthostatic Standing] Pulse Oximetry 98 96 Oxygen Delivery Method 06/24/23 23:50 06/24/23 23:51 06/24/23 23:51 Pulse Rate 74 Pulse Rate [Orthostatic Lying] Pulse Rate [Orthostatic Sitting] Pulse Rate [Orthostatic Standing] Respiratory Rate 21 Blood Pressure 91/60 109/64 Blood Pressure [Orthostatic Lying] Blood Pressure [Orthostatic Sitting] Blood Pressure [Orthostatic Standing] Pulse Oximetry 99 Oxygen Delivery Method Room Air 06/25/23 00:00 06/25/23 00:00 06/25/23 00:15 Pulse Rate 64 Pulse Rate [Orthostatic Lying] Pulse Rate [Orthostatic Sitting] Pulse Rate [Orthostatic Standing] Respiratory Rate 13 Blood Pressure 114/70 112/71 Blood Pressure [Orthostatic Lying] Blood Pressure [Orthostatic Sitting] Blood Pressure [Orthostatic Standing] Pulse Oximetry 95 Oxygen Delivery Method 06/25/23 00:15 06/25/23 00:30 06/25/23 00:30 Pulse Rate 63 59 L Pulse Rate [Orthostatic Lying] Pulse Rate [Orthostatic Sitting] Pulse Rate [Orthostatic Standing] Respiratory Rate 19 16 Blood Pressure 114/69 Blood Pressure [Orthostatic Lying] Blood Pressure [Orthostatic Sitting] Blood Pressure [Orthostatic Standing] Pulse Oximetry 98 96 Oxygen Delivery Method 06/25/23 00:45 06/25/23 00:45 06/25/23 01:00 Pulse Rate 69 Pulse Rate [Orthostatic Lying] Pulse Rate [Orthostatic Sitting] Pulse Rate [Orthostatic Standing] Respiratory Rate 20 Blood Pressure 144/79 H 128/75 Blood Pressure [Orthostatic Lying] Blood Pressure [Orthostatic Sitting] Blood Pressure [Orthostatic Standing] Pulse Oximetry 97 Oxygen Delivery Method Room Air 06/25/23 01:00 06/25/23 01:15 06/25/23 01:15 Pulse Rate 71 63 Pulse Rate [Orthostatic Lying] Pulse Rate [Orthostatic Sitting] Pulse Rate [Orthostatic Standing] Respiratory Rate 20 18 Blood Pressure 111/74 Blood Pressure [Orthostatic Lying] Blood Pressure [Orthostatic Sitting] Blood Pressure [Orthostatic Standing] Pulse Oximetry 97 96 Oxygen Delivery Method Room Air Medical Decision Making Lab Data 06/24/23 17:40 06/24/23 17:40 Labs: Lab Results 06/24/23 06/24/23 06/24/23 Range/Units 17:40 17:40 17:40 WBC 7.2 (4.5-11.0) X10^3/uL RBC 4.66 (4.5-5.9) X10^6/uL Hgb 12.6 L (13.5-17.5) g/dL Hct 37.9 L (41-53) % MCV 81.5 (80-100) fL MCH 27.1 (26-34) PG MCHC 33.2 (30-36) % RDW 20.3 H (11.6-14.8) % Plt Count 202 (150-400) X10^3/uL Neut % (Auto) Not Reportable Lymph % (Auto) Not Reportable [place] % (Auto) Not Reportable Eos % (Auto) Not Reportable Baso % (Auto) Not Reportable Lymph # (Auto) Not Reportable [place] # (Auto) Not Reportable Baso # (Auto) Not Reportable Total Counted 100 Seg Neutrophils % 16.0 L (38-70) % Band Neutrophils % 12.0 H (3-7) % Lymphocytes % (Manual) 55.0 H (25-45) % Monocytes % (Manual) 11.0 (2-11) % Eosinophils % (Manual) 3.0 (2-4) % Basophils % (Manual) 1.0 (0-1) % Metamyelocytes % 1.0 H (-0) % Myelocytes % 1.0 H (-0) % Neutrophils # (Manual) 2016 L (1439-6685) /uL RBC Morphology See below Anisocytosis 1+ H Ovalocytes 1+ H PT 12.7 (10.1-12.7) SECONDS INR 1.1 (0.9-1.3) APTT 31 (26-36) SECONDS Sodium 132 L (137-145) mmol/L Potassium 3.5 (3.4-5.1) mmol/L Chloride 94 L (98-107) mmol/L Carbon Dioxide 29 (22-32) mmol/L BUN 24 H (9-20) mg/dL Creatinine 1.56 H (0.66-1.25) mg/dL Estimated GFR 50 L (>60) mL/min BUN/Creatinine Ratio 15.4 (6-22) Glucose 112 H (80-110) mg/dL Calcium 8.9 (8.4-10.2) mg/dL Magnesium 1.9 (1.6-2.3) mg/dL Total Bilirubin 0.9 (0.2-1.3) mg/dL AST 39 (17-59) IU/L ALT 20 (<50) IU/L Alkaline Phosphatase 82 (38-126) U/L Total Creatine Kinase 21 L (55-170) U/L Troponin I < 0.012 (0.01-0.034) ng/mL Total Protein 7.2 (6.3-8.2) g/dL Albumin 4.3 (3.5-5.0) g/dL Globulin 2.9 (1.7-4.1) g/dL Albumin/Globulin Ratio 1.5 (1.0-2.8) Lipase 35 (23-300) U/L Urine RBC (0-5/HPF) Urine WBC (0-5/HPF) Ur Squamous Epith Cells (0-5/HPF) Urine Bacteria (None) Hyaline Casts (None) Granular Casts (None) Urine Mucus (Negative) Stl C. cayetanensis PCR (Not Detect) Stool Rotavirus (PCR) (Not Detect) Stool Adenovirus (PCR) (Not Detect) Stool Astrovirus (PCR) (Not Detect) Stool Cryptosporidium PCR (Not Detect) Stl E.coli Shiga Tox PCR (Not Detect) St Sh/Enteroin Ecoli PCR (Not Detect) Stool E coli O157 PCR Stl Enterotoxigenic E PCR (Not Detect) Stool EPEC (PCR) (Not Detect) Stl E. histolytica PCR (Not Detect) Stool Giardia Lamblia PCR (Not Detect) Stool Sapovirus (PCR) (Not Detect) Stl P. shigelloides PCR (Not Detect) St Y.enterocolitica PCR (Not Detect) Stool Vibrio (PCR) (Not Detect) Stl Vibrio cholerae PCR (Not Detect) Stl Enteroaggr Ecoli PCR (Not Detect) Stl Norovirus GI/GII PCR (Not Detect) Campylobacter (PCR) (Not Detect) C. difficile Tox (PCR) (Not Detect) Salmonella (PCR) (Not Detect) 06/24/23 06/24/23 Range/Units 17:51 17:59 WBC (4.5-11.0) X10^3/uL RBC (4.5-5.9) X10^6/uL Hgb (13.5-17.5) g/dL Hct (41-53) % MCV (80-100) fL MCH (26-34) PG MCHC (30-36) % RDW (11.6-14.8) % Plt Count (150-400) X10^3/uL Neut % (Auto) Lymph % (Auto) [place] % (Auto) Eos % (Auto) Baso % (Auto) Lymph # (Auto) [place] # (Auto) Baso # (Auto) Total Counted Seg Neutrophils % (38-70) % Band Neutrophils % (3-7) % Lymphocytes % (Manual) (25-45) % Monocytes % (Manual) (2-11) % Eosinophils % (Manual) (2-4) % Basophils % (Manual) (0-1) % Metamyelocytes % (-0) % Myelocytes % (-0) % Neutrophils # (Manual) (4117-9840) /uL RBC Morphology Anisocytosis Ovalocytes PT (10.1-12.7) SECONDS INR (0.9-1.3) APTT (26-36) SECONDS Sodium (137-145) mmol/L Potassium (3.4-5.1) mmol/L Chloride (98-107) mmol/L Carbon Dioxide (22-32) mmol/L BUN (9-20) mg/dL Creatinine (0.66-1.25) mg/dL Estimated GFR (>60) mL/min BUN/Creatinine Ratio (6-22) Glucose (80-110) mg/dL Calcium (8.4-10.2) mg/dL Magnesium (1.6-2.3) mg/dL Total Bilirubin (0.2-1.3) mg/dL AST (17-59) IU/L ALT (<50) IU/L Alkaline Phosphatase (38-126) U/L Total Creatine Kinase (55-170) U/L Troponin I (0.01-0.034) ng/mL Total Protein (6.3-8.2) g/dL Albumin (3.5-5.0) g/dL Globulin (1.7-4.1) g/dL Albumin/Globulin Ratio (1.0-2.8) Lipase (23-300) U/L Urine RBC 0-1/hpf (0-5/HPF) Urine WBC 1-5/hpf (0-5/HPF) Ur Squamous Epith Cells 1-5 /hpf (0-5/HPF) Urine Bacteria Moderate (10-30) H (None) Hyaline Casts >100/lpf (None) Granular Casts 10-30/lpf (None) Urine Mucus 3+ H (Negative) Stl C. cayetanensis PCR Not detected (Not Detect) Stool Rotavirus (PCR) Not detected (Not Detect) Stool Adenovirus (PCR) Not detected (Not Detect) Stool Astrovirus (PCR) Not detected (Not Detect) Stool Cryptosporidium PCR Not detected (Not Detect) Stl E.coli Shiga Tox PCR Not detected (Not Detect) St Sh/Enteroin Ecoli PCR Not detected (Not Detect) Stool E coli O157 PCR Not Reportable Stl Enterotoxigenic E PCR Not detected (Not Detect) Stool EPEC (PCR) Not detected (Not Detect) Stl E. histolytica PCR Not detected (Not Detect) Stool Giardia Lamblia PCR Not detected (Not Detect) Stool Sapovirus (PCR) Not detected (Not Detect) Stl P. shigelloides PCR Not detected (Not Detect) St Y.enterocolitica PCR Not detected (Not Detect) Stool Vibrio (PCR) Not detected (Not Detect) Stl Vibrio cholerae PCR Not detected (Not Detect) Stl Enteroaggr Ecoli PCR Not detected (Not Detect) Stl Norovirus GI/GII PCR Not detected (Not Detect) Campylobacter (PCR) Not detected (Not Detect) C. difficile Tox (PCR) Not detected (Not Detect) Salmonella (PCR) Detected H (Not Detect) Urine Dip Bedside Urine Glucose Negative Bedside Urine Bilirubin - Negative Bedside Urine Ketone - Negative Urine Specific [place] 1.025 Bedside Urine Occult Blood - Negative Bedside Urine pH 6.0 Bedside Urine Protein +/- 15 Bedside Urine Urobilinogen - Negative Bedside Urine Nitrite - Negative Bedside Urine Leukocytes - Negative Esterase Point of care testing: Urine Dip Bedside Urine Glucose Negative Bedside Urine Bilirubin - Negative Bedside Urine Ketone - Negative Urine Specific [place] 1.025 Bedside Urine Occult Blood - Negative Bedside Urine pH 6.0 Bedside Urine Protein +/- 15 Bedside Urine Urobilinogen - Negative Bedside Urine Nitrite - Negative Bedside Urine Leukocytes - Negative Esterase MDM Narrative Medical decision making narrative: CC: 62-year-old male with diarrhea, lightheadedness and syncope Complicating co-morbidities: Age, hypothyroid, prior Salmonella Data collected from: Patient Medical records reviewed: Prior notes reviewed in our EMR Differential considered, but not limited to: Dehydration versus electrolyte or renal impairment versus infectious diarrhea versus other Exam documented above, pertinent findings include: Heart rate regular, lungs clear, abdomen is soft, bowel sounds increased, dry mucous membranes and poor skin turgor, no scalp hematoma, evidence of depressed skull fracture or hyphema Lab Test results independently reviewed as above. Pertinent findings: No leukocytosis or left shift, sodium slightly decreased at 1 3 2, potassium 3.5, creatinine increased at 1.56 from baseline of 0.74., stool demonstrates Salmonella Independently reviewed EKG as above Imaging studies independently reviewed: Chest x-ray shows trace left pleural effusion Treatments: Levaquin, 3L fluid Re-evaluations: Patient failed ambulation trial after 1st and 2 L, very nearly syncopized with orthostatics after 3 L. Discussion: 62-year-old male with profuse watery diarrhea presents with near syncopal episode earlier today. He is dry on exam with a bump in his creatinine on lab work, GI panel demonstrates Salmonella. Patient has had multiple L of fluid and continues to be unable to stand up without collapsing. He had been completely asymptomatic for some time after his last hospitalization for the same. Discharge Plan Departure Patient Disposition: Admitted As Inpatient Clinical Impression: Salmonella infection, Acute kidney injury, Acute dehydration
[2023-06-24 19:30] LABS: Adenovirus F 40/41 Not Detected (Not Detect); Astrovirus Not Detected (Not Detect); Campylobacter Not Detected (Not Detect); Clostridium difficile toxin AB Not Detected (Not Detect); Cryptosporidium Not Detected (Not Detect); Cyclospora cayetanensis Not Detected (Not Detect); Entamoeba histolytica Not Detected (Not Detect); Enteroaggregative E.coli Not Detected (Not Detect); Enteropathogenic E.coli Not Detected (Not Detect); Enterotoxigenic E.coli It/st Not Detected (Not Detect); Giardia lamblia Not Detected (Not Detect); Norovirus GI/GII Not Detected (Not Detect); Plesiomonsa shigelloides Not Detected (Not Detect); Rotavirus A Not Detected (Not Detect); Salmonella Detected (Not Detect); Sapovirus Not Detected (Not Detect); Shiga-like toxin-prod E.coli Not Detected (Not Detect); Shigella/Enteroinvasive E.coli Not Detected (Not Detect); Vibrio Not Detected (Not Detect); Vibrio cholerae Not Detected (Not Detect); Yersinia enterocolitica Not Detected (Not Detect)
[2023-06-24] MEDS: levoFLOXacin 750 MG/150 ML PIGGYBACK 100 MG IV (19:44)
--- NOTE | 2023-06-24 23:52 | PC.NURSE ---
Attempted orthostatic blood pressures after additional bolus of fluid. Upon standing patient became lightheaded and sat back down in bed and reported almost passing out. Provider made aware.
[2023-06-25] VITALS (15 sets, daily range): BP systolic 99–147; BP diastolic 63–87; PULSE 59–102; RESP 13–20; TEMP 36.3–36.6; O2SAT 95–100; BMI 32.9
--- NOTE | 2023-06-25 03:54 | PM.HP.1 ---
History of Present Illness History of Present Illness Date Patient Seen: 06/25/23 Chief complaint: Syncope hit head Narrative: 62 y/o with recent hospitalization for Salmonella gastroenteritis, ~ 2 months ago, presented to ED after he head near syncope at home, othostatic, dehydrated, after he had numerous watery stools. Diagnosed with recurrent infection, treated with IVFs and abx and admitted for ongoig iv Tx. [facility] Medical History (Updated 06/25/23 @ 04:57 by Travon Odell MD) Amputation of one or more toes Lymphoma Pacemaker Surgical History History of bowel resection Social History household members: spouse Smoking Status: Never smoker alcohol intake: never Meds Home Medications and Allergies Home Medications Medication Instructions Recorded Confirmed Type levothyroxine 25 mcg tablet 25 mcg DAILY 05/11/23 06/25/23 History pantoprazole 40 mg tablet,delayed 40 mg PO DAILY 05/11/23 06/25/23 History release propranolol 80 mg tablet 80 mg PO DAILY 05/11/23 06/25/23 History sertraline 100 mg tablet 100 mg DAILY 05/11/23 06/25/23 History zanubrutinib 80 mg capsule 80 mg PO QID 05/11/23 06/25/23 History (Donna) Allergies Allergy/AdvReac Type Severity Reaction Status Date / Time No Known Drug Allergies Allergy Verified 05/11/23 17:01 Review of Systems Review of Systems Narrative: generalized weakness Cardiovascular Comments: w/o palpitations or chest pain Respiratory Comments: w/o wheezing or coughing Gastrointestinal Comments: nauseated, diarrhea Genitourinary Comments: w/o dysuria Exam Vital Signs (past 8 hours): - 06/24/23 21:40 06/24/23 20:00 06/24/23 20:00 Temperature Pulse Rate 63 Pulse Rate [Orthostatic Lying] 60 Pulse Rate [Orthostatic Sitting] 77 Pulse Rate [Orthostatic Standing] 84 Respiratory Rate 22 Blood Pressure 128/70 Blood Pressure [Orthostatic Lying] 105/64 Blood Pressure [Orthostatic Sitting] 91/54 L Blood Pressure [Orthostatic Standing] 77/51 L Pulse Oximetry 98 Oxygen Delivery Method Oxygen Flow Rate 06/24/23 20:15 06/24/23 20:15 06/24/23 20:30 Temperature Pulse Rate 60 Pulse Rate [Orthostatic Lying] Pulse Rate [Orthostatic Sitting] Pulse Rate [Orthostatic Standing] Respiratory Rate 14 Blood Pressure 126/67 104/55 L Blood Pressure [Orthostatic Lying] Blood Pressure [Orthostatic Sitting] Blood Pressure [Orthostatic Standing] Pulse Oximetry 97 Oxygen Delivery Method Oxygen Flow Rate 06/24/23 20:30 06/24/23 20:45 06/24/23 20:45 Temperature Pulse Rate 61 61 Pulse Rate [Orthostatic Lying] Pulse Rate [Orthostatic Sitting] Pulse Rate [Orthostatic Standing] Respiratory Rate 15 16 Blood Pressure 103/59 L Blood Pressure [Orthostatic Lying] Blood Pressure [Orthostatic Sitting] Blood Pressure [Orthostatic Standing] Pulse Oximetry 98 97 Oxygen Delivery Method Oxygen Flow Rate 06/24/23 21:00 06/24/23 21:00 06/24/23 21:15 Temperature Pulse Rate 60 62 Pulse Rate [Orthostatic Lying] Pulse Rate [Orthostatic Sitting] Pulse Rate [Orthostatic Standing] Respiratory Rate 17 15 Blood Pressure 116/63 Blood Pressure [Orthostatic Lying] Blood Pressure [Orthostatic Sitting] Blood Pressure [Orthostatic Standing] Pulse Oximetry 98 98 Oxygen Delivery Method Oxygen Flow Rate 06/24/23 21:15 06/24/23 21:30 06/24/23 21:30 Temperature Pulse Rate 60 Pulse Rate [Orthostatic Lying] Pulse Rate [Orthostatic Sitting] Pulse Rate [Orthostatic Standing] Respiratory Rate 16 Blood Pressure 116/68 111/64 Blood Pressure [Orthostatic Lying] Blood Pressure [Orthostatic Sitting] Blood Pressure [Orthostatic Standing] Pulse Oximetry 98 Oxygen Delivery Method Oxygen Flow Rate 06/24/23 21:35 06/24/23 21:35 06/24/23 21:36 Temperature Pulse Rate 61 76 Pulse Rate [Orthostatic Lying] Pulse Rate [Orthostatic Sitting] Pulse Rate [Orthostatic Standing] Respiratory Rate 17 19 Blood Pressure 105/64 Blood Pressure [Orthostatic Lying] Blood Pressure [Orthostatic Sitting] Blood Pressure [Orthostatic Standing] Pulse Oximetry 97 97 Oxygen Delivery Method Oxygen Flow Rate 06/24/23 21:36 06/24/23 21:37 06/24/23 21:37 Temperature Pulse Rate 85 Pulse Rate [Orthostatic Lying] Pulse Rate [Orthostatic Sitting] Pulse Rate [Orthostatic Standing] Respiratory Rate 24 Blood Pressure 91/54 L 77/51 L Blood Pressure [Orthostatic Lying] Blood Pressure [Orthostatic Sitting] Blood Pressure [Orthostatic Standing] Pulse Oximetry 99 Oxygen Delivery Method Oxygen Flow Rate 06/24/23 21:38 06/24/23 21:38 06/24/23 21:46 Temperature Pulse Rate 67 75 Pulse Rate [Orthostatic Lying] Pulse Rate [Orthostatic Sitting] Pulse Rate [Orthostatic Standing] Respiratory Rate 20 19 Blood Pressure 118/64 Blood Pressure [Orthostatic Lying] Blood Pressure [Orthostatic Sitting] Blood Pressure [Orthostatic Standing] Pulse Oximetry 99 99 Oxygen Delivery Method Oxygen Flow Rate 06/24/23 21:46 06/24/23 22:00 06/24/23 22:00 Temperature Pulse Rate 63 Pulse Rate [Orthostatic Lying] Pulse Rate [Orthostatic Sitting] Pulse Rate [Orthostatic Standing] Respiratory Rate 21 Blood Pressure 138/93 H 125/73 Blood Pressure [Orthostatic Lying] Blood Pressure [Orthostatic Sitting] Blood Pressure [Orthostatic Standing] Pulse Oximetry 100 Oxygen Delivery Method Room Air Oxygen Flow Rate 06/24/23 22:15 06/24/23 22:15 06/24/23 22:30 Temperature Pulse Rate 77 60 Pulse Rate [Orthostatic Lying] Pulse Rate [Orthostatic Sitting] Pulse Rate [Orthostatic Standing] Respiratory Rate 24 24 Blood Pressure 147/83 H Blood Pressure [Orthostatic Lying] Blood Pressure [Orthostatic Sitting] Blood Pressure [Orthostatic Standing] Pulse Oximetry 98 98 Oxygen Delivery Method Oxygen Flow Rate 06/24/23 22:31 06/24/23 22:31 06/24/23 22:45 Temperature Pulse Rate 60 70 Pulse Rate [Orthostatic Lying] Pulse Rate [Orthostatic Sitting] Pulse Rate [Orthostatic Standing] Respiratory Rate 20 26 H Blood Pressure 105/69 Blood Pressure [Orthostatic Lying] Blood Pressure [Orthostatic Sitting] Blood Pressure [Orthostatic Standing] Pulse Oximetry 99 99 Oxygen Delivery Method Oxygen Flow Rate 06/24/23 22:45 06/24/23 23:00 06/24/23 23:00 Temperature Pulse Rate 60 Pulse Rate [Orthostatic Lying] Pulse Rate [Orthostatic Sitting] Pulse Rate [Orthostatic Standing] Respiratory Rate 15 Blood Pressure 125/77 116/68 Blood Pressure [Orthostatic Lying] Blood Pressure [Orthostatic Sitting] Blood Pressure [Orthostatic Standing] Pulse Oximetry 97 Oxygen Delivery Method Oxygen Flow Rate 06/24/23 23:15 06/24/23 23:15 06/24/23 23:30 Temperature Pulse Rate 61 Pulse Rate [Orthostatic Lying] Pulse Rate [Orthostatic Sitting] Pulse Rate [Orthostatic Standing] Respiratory Rate 14 Blood Pressure 114/56 L 120/67 Blood Pressure [Orthostatic Lying] Blood Pressure [Orthostatic Sitting] Blood Pressure [Orthostatic Standing] Pulse Oximetry 99 Oxygen Delivery Method Oxygen Flow Rate 06/24/23 23:30 06/24/23 23:53 06/24/23 23:45 Temperature Pulse Rate 60 Pulse Rate [Orthostatic Lying] 68 Pulse Rate [Orthostatic Sitting] 73 Pulse Rate [Orthostatic Standing] Respiratory Rate 17 Blood Pressure 112/64 Blood Pressure [Orthostatic Lying] 117/68 Blood Pressure [Orthostatic Sitting] 91/60 Blood Pressure [Orthostatic Standing] Pulse Oximetry 96 Oxygen Delivery Method Oxygen Flow Rate 06/24/23 23:45 06/24/23 23:48 06/24/23 23:48 Temperature Pulse Rate 63 69 Pulse Rate [Orthostatic Lying] Pulse Rate [Orthostatic Sitting] Pulse Rate [Orthostatic Standing] Respiratory Rate 21 18 Blood Pressure 117/68 Blood Pressure [Orthostatic Lying] Blood Pressure [Orthostatic Sitting] Blood Pressure [Orthostatic Standing] Pulse Oximetry 95 98 Oxygen Delivery Method Oxygen Flow Rate 06/24/23 23:50 06/24/23 23:50 06/24/23 23:51 Temperature Pulse Rate 77 74 Pulse Rate [Orthostatic Lying] Pulse Rate [Orthostatic Sitting] Pulse Rate [Orthostatic Standing] Respiratory Rate 26 H 21 Blood Pressure 91/60 Blood Pressure [Orthostatic Lying] Blood Pressure [Orthostatic Sitting] Blood Pressure [Orthostatic Standing] Pulse Oximetry 96 99 Oxygen Delivery Method Room Air Oxygen Flow Rate 06/24/23 23:51 06/25/23 00:00 06/25/23 00:00 Temperature Pulse Rate 64 Pulse Rate [Orthostatic Lying] Pulse Rate [Orthostatic Sitting] Pulse Rate [Orthostatic Standing] Respiratory Rate 13 Blood Pressure 109/64 114/70 Blood Pressure [Orthostatic Lying] Blood Pressure [Orthostatic Sitting] Blood Pressure [Orthostatic Standing] Pulse Oximetry 95 Oxygen Delivery Method Oxygen Flow Rate 06/25/23 00:15 06/25/23 00:15 06/25/23 00:30 Temperature Pulse Rate 63 Pulse Rate [Orthostatic Lying] Pulse Rate [Orthostatic Sitting] Pulse Rate [Orthostatic Standing] Respiratory Rate 19 Blood Pressure 112/71 114/69 Blood Pressure [Orthostatic Lying] Blood Pressure [Orthostatic Sitting] Blood Pressure [Orthostatic Standing] Pulse Oximetry 98 Oxygen Delivery Method Oxygen Flow Rate 06/25/23 00:30 06/25/23 00:45 06/25/23 00:45 Temperature Pulse Rate 59 L 69 Pulse Rate [Orthostatic Lying] Pulse Rate [Orthostatic Sitting] Pulse Rate [Orthostatic Standing] Respiratory Rate 16 20 Blood Pressure 144/79 H Blood Pressure [Orthostatic Lying] Blood Pressure [Orthostatic Sitting] Blood Pressure [Orthostatic Standing] Pulse Oximetry 96 97 Oxygen Delivery Method Room Air Oxygen Flow Rate 06/25/23 01:00 06/25/23 01:00 06/25/23 01:15 Temperature Pulse Rate 71 63 Pulse Rate [Orthostatic Lying] Pulse Rate [Orthostatic Sitting] Pulse Rate [Orthostatic Standing] Respiratory Rate 20 18 Blood Pressure 128/75 Blood Pressure [Orthostatic Lying] Blood Pressure [Orthostatic Sitting] Blood Pressure [Orthostatic Standing] Pulse Oximetry 97 96 Oxygen Delivery Method Room Air Oxygen Flow Rate 06/25/23 01:15 06/25/23 01:30 06/25/23 01:30 Temperature Pulse Rate 64 Pulse Rate [Orthostatic Lying] Pulse Rate [Orthostatic Sitting] Pulse Rate [Orthostatic Standing] Respiratory Rate 16 Blood Pressure 111/74 115/77 Blood Pressure [Orthostatic Lying] Blood Pressure [Orthostatic Sitting] Blood Pressure [Orthostatic Standing] Pulse Oximetry 97 Oxygen Delivery Method Oxygen Flow Rate 06/25/23 01:45 06/25/23 01:45 06/25/23 02:00 Temperature Pulse Rate 59 L Pulse Rate [Orthostatic Lying] Pulse Rate [Orthostatic Sitting] Pulse Rate [Orthostatic Standing] Respiratory Rate 14 Blood Pressure 119/70 128/75 Blood Pressure [Orthostatic Lying] Blood Pressure [Orthostatic Sitting] Blood Pressure [Orthostatic Standing] Pulse Oximetry 96 Oxygen Delivery Method Oxygen Flow Rate 06/25/23 02:00 06/25/23 02:15 06/25/23 02:15 Temperature Pulse Rate 66 61 Pulse Rate [Orthostatic Lying] Pulse Rate [Orthostatic Sitting] Pulse Rate [Orthostatic Standing] Respiratory Rate 19 18 Blood Pressure 111/63 Blood Pressure [Orthostatic Lying] Blood Pressure [Orthostatic Sitting] Blood Pressure [Orthostatic Standing] Pulse Oximetry 98 97 Oxygen Delivery Method Oxygen Flow Rate 06/25/23 03:19 06/25/23 03:19 Temperature 97.9 F Pulse Rate 80 Pulse Rate [Orthostatic Lying] 102 H Pulse Rate [Orthostatic Sitting] 78 Pulse Rate [Orthostatic Standing] 95 H Respiratory Rate 18 Blood Pressure 140/82 Blood Pressure [Orthostatic Lying] 140/82 Blood Pressure [Orthostatic Sitting] 147/87 H Blood Pressure [Orthostatic Standing] 102/77 Pulse Oximetry 99 Oxygen Delivery Method Oxygen Flow Rate 0 Oxygen Delivery Method Room Air Oxygen Flow Rate 0 Const Other: sitting in bed in no distress HENMT Other: hearing loss Resp Other: normal respiratory effort Cardio Other: PPM in place, regular Skin Other: not jaundiced, no rashes Objective Labs 06/24/23 17:40 06/24/23 17:40 Labs: Laboratory Results - last 24 hr 06/24/23 06/24/23 06/24/23 17:40 17:40 17:40 WBC 7.2 RBC 4.66 Hgb 12.6 L Hct 37.9 L MCV 81.5 MCH 27.1 MCHC 33.2 RDW 20.3 H Plt Count 202 Neut % (Auto) Not Reportable Lymph % (Auto) Not Reportable [place] % (Auto) Not Reportable Eos % (Auto) Not Reportable Baso % (Auto) Not Reportable Lymph # (Auto) Not Reportable [place] # (Auto) Not Reportable Baso # (Auto) Not Reportable Total Counted 100 Seg Neutrophils % 16.0 L Band Neutrophils % 12.0 H Lymphocytes % (Manual) 55.0 H Monocytes % (Manual) 11.0 Eosinophils % (Manual) 3.0 Basophils % (Manual) 1.0 Metamyelocytes % 1.0 H Myelocytes % 1.0 H Neutrophils # (Manual) 2016 L RBC Morphology See below Anisocytosis 1+ H Ovalocytes 1+ H PT 12.7 INR 1.1 APTT 31 Sodium 132 L Potassium 3.5 Chloride 94 L Carbon Dioxide 29 BUN 24 H Creatinine 1.56 H Estimated GFR 50 L BUN/Creatinine Ratio 15.4 Glucose 112 H Calcium 8.9 Magnesium 1.9 Total Bilirubin 0.9 AST 39 ALT 20 Alkaline Phosphatase 82 Total Creatine Kinase 21 L Troponin I < 0.012 Total Protein 7.2 Albumin 4.3 Globulin 2.9 Albumin/Globulin Ratio 1.5 Lipase 35 Urine RBC Urine WBC Ur Squamous Epith Cells Urine Bacteria Hyaline Casts Granular Casts Urine Mucus Stl C. cayetanensis PCR Stool Rotavirus (PCR) Stool Adenovirus (PCR) Stool Astrovirus (PCR) Stool Cryptosporidium PCR Stl E.coli Shiga Tox PCR St Sh/Enteroin Ecoli PCR Stool E coli O157 PCR Stl Enterotoxigenic E PCR Stool EPEC (PCR) Stl E. histolytica PCR Stool Giardia Lamblia PCR Stool Sapovirus (PCR) Stl P. shigelloides PCR St Y.enterocolitica PCR Stool Vibrio (PCR) Stl Vibrio cholerae PCR Stl Enteroaggr Ecoli PCR Stl Norovirus GI/GII PCR Campylobacter (PCR) C. difficile Tox (PCR) Salmonella (PCR) 06/24/23 06/24/23 17:51 17:59 WBC RBC Hgb Hct MCV MCH MCHC RDW Plt Count Neut % (Auto) Lymph % (Auto) [place] % (Auto) Eos % (Auto) Baso % (Auto) Lymph # (Auto) [place] # (Auto) Baso # (Auto) Total Counted Seg Neutrophils % Band Neutrophils % Lymphocytes % (Manual) Monocytes % (Manual) Eosinophils % (Manual) Basophils % (Manual) Metamyelocytes % Myelocytes % Neutrophils # (Manual) RBC Morphology Anisocytosis Ovalocytes PT INR APTT Sodium Potassium Chloride Carbon Dioxide BUN Creatinine Estimated GFR BUN/Creatinine Ratio Glucose Calcium Magnesium Total Bilirubin AST ALT Alkaline Phosphatase Total Creatine Kinase Troponin I Total Protein Albumin Globulin Albumin/Globulin Ratio Lipase Urine RBC 0-1/hpf Urine WBC 1-5/hpf Ur Squamous Epith Cells 1-5 /hpf Urine Bacteria Moderate (10-30) H Hyaline Casts >100/lpf Granular Casts 10-30/lpf Urine Mucus 3+ H Stl C. cayetanensis PCR Not detected Stool Rotavirus (PCR) Not detected Stool Adenovirus (PCR) Not detected Stool Astrovirus (PCR) Not detected Stool Cryptosporidium PCR Not detected Stl E.coli Shiga Tox PCR Not detected St Sh/Enteroin Ecoli PCR Not detected Stool E coli O157 PCR Not Reportable Stl Enterotoxigenic E PCR Not detected Stool EPEC (PCR) Not detected Stl E. histolytica PCR Not detected Stool Giardia Lamblia PCR Not detected Stool Sapovirus (PCR) Not detected Stl P. shigelloides PCR Not detected St Y.enterocolitica PCR Not detected Stool Vibrio (PCR) Not detected Stl Vibrio cholerae PCR Not detected Stl Enteroaggr Ecoli PCR Not detected Stl Norovirus GI/GII PCR Not detected Campylobacter (PCR) Not detected C. difficile Tox (PCR) Not detected Salmonella (PCR) Detected H Assessment & Plan Assessment and plan (1) Gastroenteritis, Salmonella: Status: Acute (2) Acute kidney injury: Status: Acute (3) GERD (gastroesophageal reflux disease): Status: Acute (4) Acquired hypothyroidism: Status: Acute (5) CLL (chronic lymphocytic leukemia): Status: Acute Assessment & Plan narrative: 1. Salmonella Gastroenteritis - Levaquin 2. LINH - IVFs 3. GERD - PPI 4. Hypothyroidism - levothyroxine 5. CLL - Brukinsa
[2023-06-25] MEDS: LACTATED RINGERS 1,000 ML 100 ML IV ×2 (04:07→12:14)
[2023-06-25] MEDS: LEVOTHYROXINE 25 MCG TABLET PO (05:28)
[2023-06-25 07:27] LABS: Add Manual Diff / Slide Review YES; Hematocrit 32.1 % (41-53); Hemoglobin 10.6 g/dL (13.5-17.5); Mean Corpuscular HGB Conc 33.1 % (30-36); Mean Corpuscular Volume 81.5 fL (80-100); Platelet Count 159 X10^3/uL (150-400); Red Blood Cell Count 3.94 X10^6/uL (4.5-5.9); Red Cell Distribution Width 19.8 % (11.6-14.8); White Blood Cell Count 4.1 X10^3/uL (4.5-11.0)
[2023-06-25 07:38] LABS: Alanine Aminotransferase 16 IU/L (<50); Albumin 3.6 g/dL (3.5-5.0); Albumin Globulin Ratio 1.4 (1.0-2.8); Alkaline Phosphatase 80 U/L (38-126); Aspartate Aminotransferase 26 IU/L (17-59); BUN Creatinine Ratio 16.7 (6-22); Bilirubin Total 0.6 mg/dL (0.2-1.3); Blood Urea Nitrogen 20 mg/dL (9-20); Calcium 8.5 mg/dL (8.4-10.2); Carbon Dioxide 27 mmol/L (22-32); Chloride 99 mmol/L (98-107); Estimated Glomerular Filt Rate > 60 mL/min (>60); Globulin 2.5 g/dL (1.7-4.1); Glucose 104 mg/dL (80-110); HEMOLYSIS < 15 (0-50); Potassium 3.4 mmol/L (3.4-5.1); Sodium 135 mmol/L (137-145); Total Protein 6.1 g/dL (6.3-8.2)
[2023-06-25] MEDS: ENOXAPARIN 30 MG/0.3 ML SYRINGE SUBCUT (08:39)
[2023-06-25] MEDS: PANTOPRAZOLE DR 40 MG TABLET PO (08:39)
[2023-06-25] MEDS: SERTRALINE 50 MG TABLET 100 MG PO (08:39)
[2023-06-25] MEDS: POTASSIUM CHLORIDE 20 MEQ TAB 40 MEQ PO (08:42)
[2023-06-25 08:57] LABS: Neutrophils Absolute Manual 1066 /uL (3000-5900); Total Cells Counted 100
[2023-06-25 08:58] LABS: Platelet Estimate Adequate on smear; RBC Morphology Normal Morphology
--- NOTE | 2023-06-25 09:30 | PC.NURSE ---
0900: patient is alert, oriented. voices needs. continues w/ loose watery stools w/ mucus. denies pain/discomfort. MD in to see patient, new order for general diet. dietary notified. MD anticipates patient see GI in [facility], will do this on outpatient basis, anticipate d/c home today/tomorrow.
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
--- NOTE | 2023-06-25 12:20 | CM.DANOTE ---
DCP Assessment Note: Patient is a 62yo male here for salmonella, was here end of April with salmonella as well. PCP: Rina Edwards. Payer Silva and self pay ETL PROGRAMMER reviewed EMR. Per provider in rounds, patient likely to d/c home tomorrow on oral antibiotics and have follow up care with specialist at [facility]. ETL PROGRAMMER entered room and introduced self and role. Patient was resting in bed and appeared A/Ox4. Patient reported not much has changed from last visit. Lives at home with spouse Katharine ([phone]) in [place] with their dog. Patient for the most part is independent at baseline and ambulates well, but has a walker that could use if needed. Patient relies on spouse for transportation, and his can drive him home when ready. Plan: patient likely do d/c home with spouse when medically cleared, transport with . F/u with OP specialist. CM team will continue to follow as needed. CHRISTOPHER Ching Discharge Planning/Care Management CM Discharge Assessment Start: 06/25/23 12:17 Freq: Status: Active Protocol: Document 06/25/23 12:17 (Rec: 06/25/23 12:19 [id number]) Discharge Planning Assessment Assigned Mechanical Engineering Lecturer CHRISTOPHER Khanna DPOA/Assigned Designee Name Katharine Perez (spouse) Contact Information [phone] Advance Directives? No History Provided By Patient,Medical Record Prior Living Arrangements Apartment/Condo Household Members spouse Type of transporation used prior to Relies on Others admit Comment provides transportation Independent with ADL's Yes Is patient alert and oriented? Yes DME Already Rented / Owned FWW / Walker,Cane Comment owns but does not use Discharge Plan Home Transportation Arrangement SNF/HH Preference used [facility] in past. Whiteboard Updated in Patient Room with Yes name and ext. # of Mechanical Engineering Lecturer Review Status In Process Next Review Type Continued Stay Review
--- NOTE | 2023-06-25 19:37 | PC.NURSE ---
ortho bps today: dropped to 80's/50, symptomatic. declined offer of shower today. continues w/ IVF, abx, and sat up in his chair for most of the afternoon. SBA mobilty, poor safety awareness. flat affect, and quiet. enjoys watching tv in room. bedand chair alarm on at all times, and on contact precautions for salmonella in stool had several loose stools this shift, started to lessen up just a little bit. still has a foul fishy odor to is. called nurses station today asking for a note for laundry at [facility] to have separate washer to prevent spread of bug was not able to call her back today, and passed this on to next shift.
[2023-06-25] MEDS: levoFLOXacin 500 MG/100 ML PIGGYBACK 100 MG IV (20:08)
[2023-06-26] MEDS: diphenhydrAMINE 25 MG TABLET PO ×2 (00:32→21:13)
--- NOTE | 2023-06-26 01:44 | PC.NURSE ---
Patient is alert and oriented. Breath sounds CTA with RA sat of 100%. HRR; has pacemaker. Denies nausea. BT present and abdomen is soft, nontender but continues to have loose stools. States he has some urgency with stooling and was incontinent of stool prior to admission but states he has been continent since he was admitted. Is voiding per urinal and denies dysuria. Is able to turn himself in bed. Is getting up to bathroom with SBA. Can be impulsive and forgets to call for help when up in chair and fall risk score is high so alarms are being used at all times. Denies any dizziness or lightheadedness when getting up and appear steady on feet. Has pink, flat spots on inner left thigh which he states he uses some cream at home but denies any itching or discomfort at site. Has previously amputated toes and partial forefoot of right foot (age 25 at time of amputation) and does not use any assistive device when up. Bilateral calf SCD's applied when in bed. Denies any pain. Remains on enteric precautions for salmonella enteritis and reminded of importance of good handwashing.
[2023-06-26] MEDS: LACTATED RINGERS 1,000 ML 100 ML IV ×2 (02:06→12:22)
[2023-06-26 02:22] VITALS: BP 136/82; PULSE 85; RESP 18; TEMP 36.7; O2SAT 97
[2023-06-26] MEDS: LEVOTHYROXINE 25 MCG TABLET PO (06:17)
[2023-06-26 06:53] LABS: Hematocrit 28.4 % (41-53); Hemoglobin 9.6 g/dL (13.5-17.5); Mean Corpuscular Hemoglobin 27.6 PG (26-34); Mean Corpuscular Volume 81.3 fL (80-100); Platelet Count 135 X10^3/uL (150-400); Red Blood Cell Count 3.49 X10^6/uL (4.5-5.9); Red Cell Distribution Width 20.3 % (11.6-14.8); White Blood Cell Count 2.8 X10^3/uL (4.5-11.0)
[2023-06-26 07:08] LABS: BUN Creatinine Ratio 15.4 (6-22); Blood Urea Nitrogen 16 mg/dL (9-20); Calcium 8.6 mg/dL (8.4-10.2); Carbon Dioxide 28 mmol/L (22-32); Chloride 102 mmol/L (98-107); Estimated Glomerular Filt Rate > 60 mL/min (>60); Glucose 102 mg/dL (80-110); HEMOLYSIS < 15 (0-50); Magnesium 1.8 mg/dL (1.6-2.3); Potassium 3.3 mmol/L (3.4-5.1); Sodium 136 mmol/L (137-145)
[2023-06-26 07:12] LABS: Add Manual Diff / Slide Review YES
[2023-06-26 07:38] LABS: Neutrophils Absolute Manual 1204 /uL (3000-5900); Total Cells Counted 100
[2023-06-26 07:41] LABS: Anisocytosis 1+; Ovalocytes 1+
[2023-06-26] MEDS: PANTOPRAZOLE DR 40 MG TABLET PO (11:13)
[2023-06-26] MEDS: SERTRALINE 50 MG TABLET 100 MG PO (11:13)
[2023-06-26] MEDS: ENOXAPARIN 40 MG/0.4 ML SYRINGE SUBCUT (11:13)
[2023-06-26] MEDS: LACTOBACILLUS ACIDOPHILUS TABLET 1 EACH PO ×2 (11:13→16:50)
[2023-06-26] MEDS: POTASSIUM CHLORIDE 20 MEQ TAB 40 MEQ PO ×2 (11:14→16:50)
--- NOTE | 2023-06-26 15:07 | CM.DPC ---
DCP Continued: COLOR PRINTER OPERATOR reviewed EMR. From provider in round, patient experienced 11 rounds of diarrhea overnight and is not planning on d/c him today. From nursing staff, requested it to say somewhere in his paper work that patient needs separate washing machine? Patient and live in government apartment housing and share a washer/dryer. They bought a small one for in their apartment for patient's things due to his salmonella and not wanting to contaminate other residents. Housing agency does not want them to have it unless they have documentation from the doctor saying they need a separate washer. COLOR PRINTER OPERATOR entered room and reintroduced self and role. Patient reported he was feeling better today and continues to have no needs. Plan: d/c home with spouse when medically stable. CM team will continue to follow as needed. CHRISTOPHER Ching
[2023-06-26 15:25] VITALS: BP 146/91; PULSE 76; RESP 16; TEMP 36.2; O2SAT 94
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
[2023-06-26 19:35] VITALS: BP 115/69; PULSE 63; RESP 20; TEMP 36.5; O2SAT 97
[2023-06-26] MEDS: levoFLOXacin 500 MG/100 ML PIGGYBACK 100 MG IV (20:03)
[2023-06-26 22:54] VITALS: BP 114/59; PULSE 63; RESP 17; TEMP 36.9; O2SAT 96
[2023-06-27] MEDS: LACTATED RINGERS 1,000 ML 100 ML IV (00:03)
--- NOTE | 2023-06-27 00:10 | PC.NURSE ---
Patient is alert and oriented. Breath sounds CTA with RA sat of 97%. HRR; has pacemaker. Denies nausea. BT hypoactive and denies pain but has been still having loose to watery stools but decreased frequency/amounts since admission. Denies dysuria with urination and is using urinal. Is able to turn himself. Provided SBA when up to bathroom for safety related to recent falls; denies dizziness or lightheadedness. Declined use of SCD's tonight when back in bed stating it is difficult to sleep with them on; reminded to ankle wave. Remains on enteric precautions per protocol for salmonella. Fall risk score is high and bed alarm is activated.
[2023-06-27] MEDS: LEVOTHYROXINE 25 MCG TABLET PO (05:42)
[2023-06-27 06:58] LABS: Hematocrit 27.5 % (41-53); Hemoglobin 9.2 g/dL (13.5-17.5); Mean Corpuscular HGB Conc 33.4 % (30-36); Mean Corpuscular Hemoglobin 27.2 PG (26-34); Mean Corpuscular Volume 81.5 fL (80-100); Platelet Count 117 X10^3/uL (150-400); Red Blood Cell Count 3.37 X10^6/uL (4.5-5.9); Red Cell Distribution Width 19.5 % (11.6-14.8); White Blood Cell Count 2.1 X10^3/uL (4.5-11.0)
[2023-06-27 07:00] VITALS: BP 111/72; PULSE 72; RESP 17; TEMP 36.2; O2SAT 98
[2023-06-27 07:00] LABS: Add Manual Diff / Slide Review YES
[2023-06-27 07:08] LABS: BUN Creatinine Ratio 14.3 (6-22); Blood Urea Nitrogen 13 mg/dL (9-20); Calcium 8.6 mg/dL (8.4-10.2); Carbon Dioxide 27 mmol/L (22-32); Chloride 104 mmol/L (98-107); Estimated Glomerular Filt Rate > 60 mL/min (>60); Glucose 115 mg/dL (80-110); HEMOLYSIS < 15 (0-50); Magnesium 1.6 mg/dL (1.6-2.3); Potassium 3.7 mmol/L (3.4-5.1); Sodium 137 mmol/L (137-145)
[2023-06-27 07:16] LABS: Neutrophils Absolute Manual 1281 /uL (3000-5900); Total Cells Counted 100
[2023-06-27 07:17] LABS: Anisocytosis 1+; Ovalocytes 1+
[2023-06-27] MEDS: PANTOPRAZOLE DR 40 MG TABLET PO (09:21)
[2023-06-27] MEDS: SERTRALINE 50 MG TABLET 100 MG PO (09:21)
[2023-06-27] MEDS: ENOXAPARIN 40 MG/0.4 ML SYRINGE SUBCUT (09:22)
[2023-06-27] MEDS: LACTOBACILLUS ACIDOPHILUS TABLET 1 EACH PO ×2 (09:22→12:12)
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
== END 2023-06-27 12:44 | disposition home or self-care (01) | DRG 872 ==
LOC: ED 23:58 → AC 06-25 02:14
PROVIDERS: Emergency Medicine; Internal Medicine; Admitting Provider Internal Medicine; Emergency Provider Emergency Medicine; PCP Internal Medicine; Referring Provider Emergency Medicine; Visit Provider Internal Medicine
DX: A41.9 Sepsis, unspecified organism (principal); A02.0 Salmonella enteritis; C91.10 Chronic lymphocytic leukemia of B-cell type not having achieved remission; N17.9 Acute kidney failure, unspecified; D61.818 Other pancytopenia; K21.9 Gastro-esophageal reflux disease without esophagitis; E03.9 Hypothyroidism, unspecified; I95.1 Orthostatic hypotension; I10 Essential (primary) hypertension; R65.20 Severe sepsis without septic shock; E87.6 Hypokalemia; D69.6 Thrombocytopenia, unspecified; Z95.0 Presence of cardiac pacemaker
CPT/HCPCS: 36415; 71045; 80048; 80053; 81003; 81015; 82550; 83690; 83735; 84484; 85007; 85025; 85610; 85730; 87507; 93005; 93010; 99284; J1650; J1956

== ENCOUNTER 2023-09-26 20:53 | Observation (INO) | payer OTHER, SELFPAY ==
[2023-06-25 02:37] VITALS: BMI 32.9
[2023-09-26] VITALS (7 sets, daily range): BP systolic 125–128; BP diastolic 72–73; PULSE 70–81; RESP 16–25; TEMP 37.3; O2SAT 94–100; BMI 32.9
[2023-09-26 21:49] LABS: Hematocrit 39.7 % (41-53); Hemoglobin 13.2 g/dL (13.5-17.5); Mean Corpuscular HGB Conc 33.2 % (30-36); Mean Corpuscular Hemoglobin 26.2 PG (26-34); Mean Corpuscular Volume 78.8 fL (80-100); Platelet Count 163 X10^3/uL (150-400); Red Blood Cell Count 5.04 X10^6/uL (4.5-5.9); Red Cell Distribution Width 18.5 % (11.6-14.8); White Blood Cell Count 4.8 X10^3/uL (4.5-11.0)
[2023-09-26 21:52] LABS: Alanine Aminotransferase 20 IU/L (<50); Albumin 4.6 g/dL (3.5-5.0); Albumin Globulin Ratio 1.4 (1.0-2.8); Alkaline Phosphatase 76 U/L (38-126); Aspartate Aminotransferase 33 IU/L (17-59); BUN Creatinine Ratio 19.1 (6-22); Bilirubin Total 0.9 mg/dL (0.2-1.3); Blood Urea Nitrogen 31 mg/dL (9-20); Calcium 9.7 mg/dL (8.4-10.2); Carbon Dioxide 30 mmol/L (22-32); Chloride 93 mmol/L (98-107); Estimated Glomerular Filt Rate 47 mL/min (>60); Globulin 3.3 g/dL (1.7-4.1); Glucose 118 mg/dL (80-110); HEMOLYSIS < 15 (0-50); Lipase 31 U/L (23-300); Potassium 3.7 mmol/L (3.4-5.1); Sodium 136 mmol/L (137-145); Total Protein 7.9 g/dL (6.3-8.2)
[2023-09-26 22:16] LABS: Add Manual Diff / Slide Review YES
[2023-09-26 23:05] LABS: Anisocytosis 2+; Neutrophils Absolute Manual 1104 /uL (3000-5900); Smudge Cells 1+; Total Cells Counted 100
--- NOTE | 2023-09-26 23:48 | ED.NAVMDI ---
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 He has not taken any the last 2 weeks. He has been having intermittent episodes of diarrhea. He has had a couple of episodes of documented Truman a positive PCR testing and at the end of June did have positive salmonella culture. He is seen Dr. Arabella Patel, Infectious Disease physician at [facility]. After restarting his biologic agent he noted that the diarrhea returned. He has not been taking the biologic agent for the last 2 weeks but is continuing to have significant diarrhea with generalized abdominal cramping. There is no blood in the stool and he is having associated nausea with intermittent episodes of vomiting. In addition to salmonella in the recent PCR he did have a positive E coli finding that is not the she got positive E coli. The question is is he a seminal a carrier, as this is a new diagnosis or is this diarrhea secondary to his biologic agent. He is having up to 8-10 stools per day and presents complaining that he is weak and dizzy. Previous treatments for his him in [facility] have included Levaquin for 2 weeks, Levaquin for 4 weeks as well as azithromycin. Related Data Home Medications Medication Instructions Recorded Confirmed levothyroxine 25 mcg tablet 25 mcg DAILY 05/11/23 06/25/23 pantoprazole 40 mg tablet,delayed 40 mg PO DAILY 05/11/23 06/25/23 release propranolol 80 mg tablet 80 mg PO DAILY 05/11/23 06/25/23 sertraline 100 mg tablet 100 mg DAILY 05/11/23 06/25/23 zanubrutinib 80 mg capsule 80 mg PO QID 05/11/23 06/25/23 (Brukinsa) Allergies Allergy/AdvReac Type Severity Reaction Status Date / Time No Known Drug Allergies Allergy Verified 05/11/23 17:01 Review of Systems Review of Systems Narrative: Pertinent positive and negative findings as per HPI Patient History Medical History 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 Able to give a complete and coherent history. HEENT: Moist mucous membranes, normal sclera with reactive pupils, Respiratory: Lungs are clear to auscultation, no wheezing no rales no rhonchi. Full and symmetrical air movement Cardiac: Regular rate and rhythm no murmurs no bruits Abdomen: Soft, mild diffuse tenderness without rebound or guarding, hyperactive bowel tones. No flank pain. Skin: Warm and dry, no rashes Neurologic: Grossly neurologically intact with no obvious asymmetries or abnormalities Extremities: No trauma, partial foot amputation right side, well perfused Psych: Cooperative, appropriate insight and affect Course Orders Ordered: ED Orders 09/26/23 21:23 Complete Blood Count AUTO DIFF Stat Comprehensive Metabolic Panel Stat Lipase Stat 09/26/23 21:25 EKG-12 Lead Stat Acetaminophen (Acetaminophen 325 Mg Tablet) 650 mg PO Q6H PRN PRN Reason: Fever/Mild Pain (1-3) Hydrocodone Bitart/Acetaminophen (Hydrocodone/Acet 5/325 Tablet) 1 tab PO Q4H PRN PRN Reason: Pain, Moderate (4-6) Azithromycin (Azithromycin 250 Mg Tablet) 500 mg PO 2100 LEO Calcium Carbonate (Calcium Carbonate 500 Mg Tab) 1,000 mg PO Q4HR PRN PRN Reason: Dyspepsia Dicyclomine HCl (Dicyclomine 10 Mg Capsule) 10 mg PO Q6HR PRN PRN Reason: Diarrhea Enoxaparin Sodium (Enoxaparin 40 Mg/0.4 Ml Syringe) 40 mg SUBCUT DAILY LEO Hydromorphone HCl (Hydromorphone 0.5 Mg Inj) 0.5 mg IV Q2H PRN PRN Reason: Pain, Severe (7-10) Sodium Chloride (Normal Saline 0.9%) 1,000 mls @ 150 mls/hr IV CONT LEO Last Admin: 09/27/23 01:27 Dose: 150 mls/hr Documented By: ARMAND Loperamide HCl (Loperamide 2 Mg Capsule) 2 mg PO QID PRN PRN Reason: Diarrhea Lorazepam (Lorazepam 0.5 Mg Tablet) 0.5 mg PO Q4HR PRN PRN Reason: Anxiety Naloxone HCl (Naloxone 0.4 Mg/Ml Vial) 0.2 mg IV Q2MIN PRN PRN Reason: Opiate Reversal Ondansetron HCl (Ondansetron 4 Mg Odt) 4 mg PO NOW PRN PRN Reason: Nausea And Vomiting Ondansetron HCl (Ondansetron 4 Mg/2 Ml Inj) 4 mg IV NOW PRN PRN Reason: Nausea And Vomiting Ondansetron HCl (Ondansetron 4 Mg/2 Ml Inj) 4 mg IV Q6HR [facility] Ondansetron HCl (Ondansetron 4 Mg Odt) 4 mg PO Q8HR PRN PRN Reason: Nausea And Vomiting Pantoprazole Sodium (Pantoprazole Dr 20 Mg Tablet) 40 mg PO 0600 [facility] Discontinued Medications Azithromycin (Azithromycin 250 Mg Tablet) 500 mg PO NOW ONE Stop: 09/27/23 00:40 Last Admin: 09/27/23 00:52 Dose: 500 mg Documented By: ARMAND Vital Signs Vital signs: Vital Signs - 8 hr 09/26/23 21:04 09/26/23 21:56 09/26/23 22:00 Temperature 99.1 F Pulse Rate 81 70 72 Respiratory Rate 16 25 H 23 Blood Pressure 125/72 Pulse Oximetry 100 97 95 Oxygen Delivery Method Room Air 09/26/23 22:16 09/26/23 22:16 09/26/23 22:30 Temperature Pulse Rate 74 76 Respiratory Rate 23 23 Blood Pressure 128/73 Pulse Oximetry 97 96 Oxygen Delivery Method 09/26/23 23:00 09/26/23 23:30 09/27/23 00:00 Temperature Pulse Rate 77 74 74 Respiratory Rate 16 21 18 Blood Pressure Pulse Oximetry 95 94 95 Oxygen Delivery Method MDM - Nausea/Vomiting/Diarrhea Lab Data 09/26/23 21:23 09/26/23 21:23 Labs: Lab Results 09/26/23 Range/Units 21:23 WBC 4.8 (4.5-11.0) X10^3/uL RBC 5.04 (4.5-5.9) X10^6/uL Hgb 13.2 L (13.5-17.5) g/dL Hct 39.7 L (41-53) % MCV 78.8 L (80-100) fL MCH 26.2 (26-34) PG MCHC 33.2 (30-36) % RDW 18.5 H (11.6-14.8) % Plt Count 163 (150-400) X10^3/uL Neut % (Auto) Not Reportable Lymph % (Auto) Not Reportable Butts % (Auto) Not Reportable Eos % (Auto) Not Reportable Baso % (Auto) Not Reportable Lymph # (Auto) Not Reportable Butts # (Auto) Not Reportable Baso # (Auto) Not Reportable Total Counted 100 Seg Neutrophils % 23.0 L (38-70) % Lymphocytes % (Manual) 40.0 (25-45) % Monocytes % (Manual) 24.0 H (2-11) % Eosinophils % (Manual) 3.0 (2-4) % Basophils % (Manual) 3.0 H (0-1) % Metamyelocytes % 6.0 H (-0) % Blast Cells % 1.0 H (-0) % Neutrophils # (Manual) 1104 L (3433-4370) /uL Smudge Cells 1+ H RBC Morphology See below Anisocytosis 2+ H Sodium 136 L (137-145) mmol/L Potassium 3.7 (3.4-5.1) mmol/L Chloride 93 L (98-107) mmol/L Carbon Dioxide 30 (22-32) mmol/L BUN 31 H (9-20) mg/dL Creatinine 1.62 H (0.66-1.25) mg/dL Estimated GFR 47 L (>60) mL/min BUN/Creatinine Ratio 19.1 (6-22) Glucose 118 H (80-110) mg/dL Calcium 9.7 (8.4-10.2) mg/dL Total Bilirubin 0.9 (0.2-1.3) mg/dL AST 33 (17-59) IU/L ALT 20 (<50) IU/L Alkaline Phosphatase 76 (38-126) U/L Total Protein 7.9 (6.3-8.2) g/dL Albumin 4.6 (3.5-5.0) g/dL Globulin 3.3 (1.7-4.1) g/dL Albumin/Globulin Ratio 1.4 (1.0-2.8) Lipase 31 (23-300) U/L MDM Narrative Medical decision making narrative: CC: Salmonella per PCR with persistent diarrhea Complicating co-morbidities: Small-cell lymphoma on zanubrivanib. Data collected from: patient, Dr Cortez Infectious disease Doctor Medical records reviewed:[facility] ID notes Differential considered: Severe diarrhea, electrolyte abnormalities, renal abnormalities, salmonella infection versus salmonella carrier Exam documented above, pertinent findings include: Mild diffuse abdominal tenderness, mucous membranes are not particularly dry. Lab Test results independently reviewed as above. Pertinent findings: Chemistries show new acute kidney injury with creatinine recently 1.1 3 days ago at [facility] and today up to 1.69. CBC shows white blood cell count is increasing 3 days ago is 3.3 is up to 4.8. It has been 2 weeks since his biologic medication has been taken Independently reviewed EKG sinus rhythm at a rate of 75. QTC is 410 milliseconds. Remainder of intervals are equally normal Consultations: Dr. Arabella Cortez, infectious disease specialist. Her recommendation because he is immunocompromised is to have him on azithromycin 500 mg daily for 14 days. She also recommends hospitalization for rehydration given his acute injury Treatments: IV fluids, IV Zofran, initial dose of azithromycin orally is given Discussion: 62-year-old gentleman with small cell lymphoma currently on biologics with recurrent episodes of diarrhea that continued to test positive per PCR testing for Salmonella. Culture was also positive for Salmonella in June of this year. Again another episode of severe diarrhea with acute kidney injury. We will start him on azithromycin 500 mg for 14 days. Patient himself has discontinued his biologic agent and will need to review his small-cell lymphoma treatment with his oncologist. He is fairly sure that it is this agent that caused this the recurrent diarrhea. Care is reviewed with the hospitalist, Dr. Vogel and patient will be admitted Discharge Plan Departure Patient Disposition: Admitted as Observation Clinical Impression: Acute kidney injury, Salmonella infection Diarrhea Qualifiers: Diarrhea type: infectious Qualified Code(s): A09 - Infectious gastroenteritis and colitis, unspecified Small cell B-cell lymphoma, unspecified site Qualifiers: Lymphoma site: unspecified region Qualified Code(s): C83.00 - Small cell B-cell lymphoma, unspecified site Admit Date/Time: 09/27/23 00:21 Admit Provider: Les Chavez
[2023-09-27] VITALS (10 sets, daily range): BP systolic 103–138; BP diastolic 58–94; PULSE 65–101; RESP 15–22; TEMP 36–36.6; O2SAT 92–96; BMI 31.4
[2023-09-27] MEDS: AZITHROMYCIN 250 MG TABLET 500 MG PO (00:52)
[2023-09-27] MEDS: SODIUM CHLORIDE 0.9% 1,000 ML 150 ML IV ×2 (01:27→08:21)
--- NOTE | 2023-09-27 03:51 | PM.HP.1 ---
History of Present Illness History of Present Illness Date Patient Seen: 09/27/23 Time Patient Seen: 03:51 Chief complaint: diarrhea x 2 weeks Narrative: The pt is a 62 yo being treated for small cell lymphoma with Burkensa which normally gives him diarrhea presents to the ER tonight with diarrhrea due to his chemo. He has a hx of Salmonella previously treated with Levoquin, and because of that, the ER staff called the ID physician typing section chief, Dr. Cortez at [facility] who recommended azithromycin 500mg daily for the next 14 days. He states he has had frequent bouts of diarrhea, about one stool per 1-2 hours. There has been no melana, bright red blood per rectum but dose have a hx of hemorrhoids. HE reports also having a cough that is non-productive, pain in LLQ that started in the ER. 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 Surgical History History of bowel resection Social History household members: spouse Smoking Status: Never smoker alcohol intake: never Meds Home Medications and Allergies Home Medications Medication Instructions Recorded Confirmed Type levothyroxine 25 mcg tablet 25 mcg DAILY 05/11/23 09/27/23 History pantoprazole 40 mg tablet,delayed 40 mg PO DAILY 05/11/23 09/27/23 History release propranolol 80 mg tablet 80 mg PO DAILY 05/11/23 09/27/23 History sertraline 100 mg tablet 100 mg DAILY 05/11/23 09/27/23 History zanubrutinib 80 mg capsule 80 mg PO QID 05/11/23 06/25/23 History (Donna) zanubrutinib 80 mg capsule 160 mg PO BID 09/27/23 09/27/23 History (Brukinsa) Allergies Allergy/AdvReac Type Severity Reaction Status Date / Time No Known Drug Allergies Allergy Verified 05/11/23 17:01 Exam Vital Signs (past 8 hours): - 09/26/23 21:04 09/26/23 21:56 09/26/23 22:00 Temperature 99.1 F Pulse Rate 81 70 72 Respiratory Rate 16 25 H 23 Blood Pressure 125/72 Pulse Oximetry 100 97 95 Oxygen Delivery Method Room Air 09/26/23 22:16 09/26/23 22:16 09/26/23 22:30 Temperature Pulse Rate 74 76 Respiratory Rate 23 23 Blood Pressure 128/73 Pulse Oximetry 97 96 Oxygen Delivery Method 09/26/23 23:00 09/26/23 23:30 09/27/23 00:00 Temperature Pulse Rate 77 74 74 Respiratory Rate 16 21 18 Blood Pressure Pulse Oximetry 95 94 95 Oxygen Delivery Method 09/27/23 00:33 09/27/23 00:34 09/27/23 00:34 Temperature Pulse Rate 84 81 Respiratory Rate 18 22 Blood Pressure 138/83 Pulse Oximetry 95 96 Oxygen Delivery Method Room Air 09/27/23 01:00 09/27/23 01:00 09/27/23 01:30 Temperature Pulse Rate 69 69 Respiratory Rate 16 16 Blood Pressure 120/68 Pulse Oximetry 96 92 Oxygen Delivery Method 09/27/23 01:30 09/27/23 02:00 09/27/23 02:00 Temperature Pulse Rate 68 Respiratory Rate 15 Blood Pressure 106/60 103/58 L Pulse Oximetry 94 Oxygen Delivery Method Room Air Oxygen Delivery Method Room Air Const General: cooperative, healthy appearing and comfortable Resp Auscultation: clear to auscultation bilaterally Cardio Rate: regular rate Rhythm: regular rhythm GI Inspection: obesity Auscultation: hyperactive bowel sounds Neuro General: patient alert, patient awake and patient oriented x3 Objective Labs 09/26/23 21:23 09/26/23 21:23 Labs: Laboratory Results - last 24 hr 09/26/23 21:23 WBC 4.8 RBC 5.04 Hgb 13.2 L Hct 39.7 L MCV 78.8 L MCH 26.2 MCHC 33.2 RDW 18.5 H Plt Count 163 Neut % (Auto) Not Reportable Lymph % (Auto) Not Reportable Chester % (Auto) Not Reportable Eos % (Auto) Not Reportable Baso % (Auto) Not Reportable Lymph # (Auto) Not Reportable [place] # (Auto) Not Reportable Baso # (Auto) Not Reportable Total Counted 100 Seg Neutrophils % 23.0 L Lymphocytes % (Manual) 40.0 Monocytes % (Manual) 24.0 H Eosinophils % (Manual) 3.0 Basophils % (Manual) 3.0 H Metamyelocytes % 6.0 H Blast Cells % 1.0 H Neutrophils # (Manual) 1104 L Smudge Cells 1+ H RBC Morphology See below Anisocytosis 2+ H Sodium 136 L Potassium 3.7 Chloride 93 L Carbon Dioxide 30 BUN 31 H Creatinine 1.62 H Estimated GFR 47 L BUN/Creatinine Ratio 19.1 Glucose 118 H Calcium 9.7 Total Bilirubin 0.9 AST 33 ALT 20 Alkaline Phosphatase 76 Total Protein 7.9 Albumin 4.6 Globulin 3.3 Albumin/Globulin Ratio 1.4 Lipase 31 Assessment & Plan Assessment and plan (1) Small cell B-cell lymphoma, unspecified site: Qualifiers: Lymphoma site: unspecified region Qualified Code(s): C83.00 - Small cell B-cell lymphoma, unspecified site Status: Acute (2) Diarrhea: Qualifiers: Diarrhea type: infectious Qualified Code(s): A09 - Infectious gastroenteritis and colitis, unspecified Status: Acute (3) Acute kidney injury: Status: Acute (4) Gastroenteritis, Salmonella: Status: Acute Plan Will admit the pt for IVF and symptomatic meds, I discussed the pt with the ER provider and agree with admission. I reviewed the labs personnally. Azithromycin 500mg started for him daily. His Cr is 1.6 today and baseline appears to be around 1.0, will recheck labs in am. PT is in stable condition, antiemetics ordered, recheck stools for culture. Quality VTE Deep Vein Thrombosis/Pulmonary Embolism Present on Admission: No
[2023-09-27] MEDS: PANTOPRAZOLE DR 20 MG TABLET 40 MG PO (06:37)
[2023-09-27 07:14] LABS: Hematocrit 36.8 % (41-53); Hemoglobin 12.1 g/dL (13.5-17.5); Mean Corpuscular Volume 78.8 fL (80-100); Platelet Count 150 X10^3/uL (150-400); Red Blood Cell Count 4.67 X10^6/uL (4.5-5.9); Red Cell Distribution Width 18.4 % (11.6-14.8); White Blood Cell Count 3.8 X10^3/uL (4.5-11.0)
[2023-09-27 07:25] LABS: Alanine Aminotransferase 19 IU/L (<50); Albumin 4.2 g/dL (3.5-5.0); Albumin Globulin Ratio 1.6 (1.0-2.8); Alkaline Phosphatase 72 U/L (38-126); Aspartate Aminotransferase 31 IU/L (17-59); BUN Creatinine Ratio 24.4 (6-22); Bilirubin Total 0.7 mg/dL (0.2-1.3); Blood Urea Nitrogen 31 mg/dL (9-20); Calcium 9.4 mg/dL (8.4-10.2); Carbon Dioxide 28 mmol/L (22-32); Chloride 97 mmol/L (98-107); Estimated Glomerular Filt Rate > 60 mL/min (>60); Globulin 2.7 g/dL (1.7-4.1); Glucose 112 mg/dL (80-110); HEMOLYSIS < 15 (0-50); Potassium 3.4 mmol/L (3.4-5.1); Sodium 136 mmol/L (137-145); Total Protein 6.9 g/dL (6.3-8.2)
[2023-09-27 07:37] LABS: Add Manual Diff / Slide Review YES
[2023-09-27 07:42] LABS: Neutrophils Absolute Manual 1254 /uL (3000-5900); Total Cells Counted 100
[2023-09-27 07:44] LABS: Anisocytosis 1+
[2023-09-27 07:45] LABS: Ovalocytes 1+
[2023-09-27] MEDS: ENOXAPARIN 40 MG/0.4 ML SYRINGE SUBCUT (08:21)
[2023-09-27] MEDS: POTASSIUM CHLORIDE 20 MEQ TAB 40 MEQ PO (09:53)
--- NOTE | 2023-09-27 13:01 | PM.DS.1 ---
History of Present Illness History of Present Illness Date Patient Seen: 09/27/23 Time Patient Seen: 13:01 Chief complaint: diarrhea x 2 weeks Narrative: Per admitting provider, The pt is a 62 yo being treated for small cell lymphoma with Burkensa which normally gives him diarrhea presents to the ER tonight with diarrhrea due to his chemo. He has a hx of Salmonella previously treated with Levoquin, and because of that, the ER staff called the ID physician general practitioner, Dr. Cortez at [facility] who recommended azithromycin 500mg daily for the next 14 days. He states he has had frequent bouts of diarrhea, about one stool per 1-2 hours. There has been no melana, bright red blood per rectum but dose have a hx of hemorrhoids. HE reports also having a cough that is non-productive, pain in LLQ that started in the ER. 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 He was noted to have LINH on labs. He improved quickly after fluids, with improvement in diarrhea shortly after admission and improvement in kidney function. He was able to eat and tolerate oral hydration. He was already started on azithromycin, and has known recurrent salmonella so full GI panel was not performed as even negative results would not likely change management administrator. Stool testing for C. diff was performed and was negative. He was discharged with another 2 week course of azithromycin for presumed salmonella enteritis. Time Spent with Patient Time spent: Greater than 30 minutes Exam Vital Signs (past 8 hours): - 09/27/23 08:00 09/27/23 08:00 09/27/23 12:00 Temperature 97.9 F 96.8 F L Pulse Rate 65 101 H Respiratory Rate 19 19 Blood Pressure 114/68 118/64 Pulse Oximetry 95 95 92 Oxygen Delivery Method Room Air Oxygen Flow Rate 0 0 0 Oxygen Delivery Method Room Air Oxygen Flow Rate 0 Narrative Exam Narrative: GEN: Alert and oriented x 3, NAD HEENT:NC, Face symmetric CHEST: Respiratory excursions symmetric, CTAB CV: RRR, no M/R/G ABD: Soft, NT/ND, BT present in all 4 quadrants, no organomegaly or masses EXTR: warm, well perfused, no C/C/E SKIN: warm and dry, no rash NEURO: Alert and oriented x 3, nonfocal Objective Labs 09/27/23 06:48 09/27/23 06:48 Labs: Laboratory Results - last 24 hr 09/26/23 09/27/23 21:23 06:48 WBC 4.8 3.8 L RBC 5.04 4.67 Hgb 13.2 L 12.1 L Hct 39.7 L 36.8 L MCV 78.8 L 78.8 L MCH 26.2 26.0 MCHC 33.2 33.0 RDW 18.5 H 18.4 H Plt Count 163 150 Neut % (Auto) Not Reportable Not Reportable Lymph % (Auto) Not Reportable Not Reportable Rolette % (Auto) Not Reportable Not Reportable Eos % (Auto) Not Reportable Not Reportable Baso % (Auto) Not Reportable Not Reportable Lymph # (Auto) Not Reportable Not Reportable Rolette # (Auto) Not Reportable Not Reportable Baso # (Auto) Not Reportable Not Reportable Total Counted 100 100 Seg Neutrophils % 23.0 L 19.0 L Band Neutrophils % 14.0 H Lymphocytes % (Manual) 40.0 27.0 Atypical Lymphs % 9.0 H Monocytes % (Manual) 24.0 H 25.0 H Eosinophils % (Manual) 3.0 6.0 H Basophils % (Manual) 3.0 H Metamyelocytes % 6.0 H Blast Cells % 1.0 H Neutrophils # (Manual) 1104 L 1254 L Smudge Cells 1+ H RBC Morphology See below See below Anisocytosis 2+ H 1+ H Ovalocytes 1+ H Sodium 136 L 136 L Potassium 3.7 3.4 Chloride 93 L 97 L Carbon Dioxide 30 28 BUN 31 H 31 H Creatinine 1.62 H 1.27 H Estimated GFR 47 L > 60 BUN/Creatinine Ratio 19.1 24.4 H Glucose 118 H 112 H Calcium 9.7 9.4 Total Bilirubin 0.9 0.7 AST 33 31 ALT 20 19 Alkaline Phosphatase 76 72 Total Protein 7.9 6.9 Albumin 4.6 4.2 Globulin 3.3 2.7 Albumin/Globulin Ratio 1.4 1.6 Lipase 31 PFSH Medical History 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 Stool was negative for C. diff. Continue azithromycin for another 2 weeks after discharge per infectious disease recommendations. If stools remain loose you can trial loperamide (imodium) to slow down transit. Discharge orders & Medications Prescriptions: New azithromycin 500 mg tablet 500 mg PO DAILY 13 Days Qty: 13 0RF Continued propranolol 80 mg tablet 80 mg PO DAILY Brukinsa 80 mg capsule 80 mg PO QID pantoprazole 40 mg tablet,delayed release (DR/EC) 40 mg PO DAILY sertraline 100 mg tablet 100 mg DAILY levothyroxine 25 mcg tablet 25 mcg DAILY Brukinsa 80 mg capsule 160 mg PO BID Follow up/Referrals: Rina Edwards MD [Primary Care Provider] - Diet/Activity/Treatments Diet: Diet as Tolerated Activity: As tolerated, no restrictions. Visit Report/Discharge Packet Instructions: Diarrhea, DI for Salmonellosis Stand Alone Forms: Patient Portal/API, Stroke Signs & Symptoms Discharge Data Primary Care Provider: Rina Edwards Attending Provider: Les Chavez Admit Date/Time: 09/27/23 00:21 Quality VTE Deep Vein Thrombosis/Pulmonary Embolism Present on Admission: No
[2023-09-27 13:11] LABS: Clostridium Difficile Tox PCR Negative for C. diff (Negative)
--- NOTE | 2023-09-27 13:42 | CM.DANOTE ---
DCP Assessment Note Patient is a 62yo M here under the hospitalist team care following a few weeks of diarrhea PCP Rina Moreno and Medicaid DAIRY GRAZER reviewed EMR. Per provider, likely d/c home today. DAIRY GRAZER received notice from ICU director that a social work assistant was calling about patient. DAIRY GRAZER spoke with social work assistant Muna from [facility](?) attempting to arrange transport for patient. Muna reported to be part of the [employer] patient belonged in. DAIRY GRAZER encouraged Muna to coordinate with patient as he is A/Ox4 and able to utilize his personal cellphone. DAIRY GRAZER entered room and introduced self and role. Patient sitting up in bed. Patient lives in [place] with Katharine ([phone]). Patient eager to d/c home. Patient has a cane or walker but does not use it. Patient inquired about a bedside commode. DAIRY GRAZER provided patient with list of resources for medical equipment/bedside commode. Patient reports he would rather have a ride earlier than have to wait until 5pm for [employer] rides. Patient gave CM team verbal permission to speak with social work assistant Muna regarding his transportation home. Patient would appreciate medicaid transport home. unable to transport for him because she recently got a concussion and cannot drive. CC Aline attempted to arrange Medicaid transport home. Due to the holiday they have a skeleton staff available. Plan: Home today with support. Transport arrangement still pending. CM team will continue to follow closely. CHRISTOPHER Ching Discharge Planning/Care Management CM Discharge Assessment Start: 09/27/23 13:39 Freq: Status: Active Protocol: Document 09/27/23 13:39 (Rec: 09/27/23 13:41 [id number]) Discharge Planning Assessment Assigned Turkish Line Attendant CHRISTOPHER Tinoco DPOA/Assigned Designee Name Katharine Perez (spouse) Contact Information [phone] Advance Directives? No History Provided By Patient,Medical Record Prior Living Arrangements Apartment/Condo Household Members spouse Type of transporation used prior to Relies on Others admit Comment or [employer] provides transportation Independent with ADL's Yes Is patient alert and oriented? Yes DME Already Rented / Owned FWW / Walker,Cane Comment owns but does not use Barriers to Discharge Yes Comment arranging transportation Discharge Plan Home Transportation Arrangement pending either Medicaid or [employer] friends Referrals Initiated None needed Whiteboard Updated in Patient Room with Yes name and ext. # of Turkish Line Attendant Review Status In Process Next Review Type Continued Stay Review
== END 2023-09-27 16:50 | disposition home or self-care (01) ==
LOC: ED 22:09 → AC 09-27 00:22
PROVIDERS: Admitting Provider Internal Medicine; Emergency Provider Emergency Medicine; PCP Internal Medicine; Referring Provider Internal Medicine; Visit Provider Internal Medicine
DX: C83.00 Small cell B-cell lymphoma, unspecified site (principal); R11.2 Nausea with vomiting, unspecified; A02.0 Salmonella enteritis; A09 Infectious gastroenteritis and colitis, unspecified; N17.9 Acute kidney failure, unspecified
CPT/HCPCS: 36415; 80053; 83690; 85007; 85025; 87045; 87493; 87899; 93005; 96360; 96361; 96372; 99283; 99284; G0378; J1650

== ENCOUNTER → 2023-10-11 14:10 | Outpatient (CLI) | payer OTHER, SELFPAY ==
[2023-09-27 02:28] VITALS: BMI 31.4
--- NOTE | 2023-10-11 | DI.US.S_ITS ---
PROCEDURE: US ABDOMEN LIMITED INDICATIONS: CHOLELITHIASIS TECHNIQUE: Real-time scanning was performed of the abdominal and retroperitoneal organs, with image documentation. COMPARISON: None. FINDINGS: Exam is limited secondary to bowel gas. Liver: Liver is enlarged. The liver is increased in echogenicity. Multiple hepatic cysts. There is a complex cyst within the right lobe of the liver measuring 2.6 centimeters, possibly hemorrhagic. There is a 1.7 centimeter cyst within the left lobe of the liver with possible septation. Gallbladder: The gallbladder is completely full of stones including stones within the neck of the gallbladder. Unable to evaluate for mobility given densely packed stones within the gallbladder. Likely to nonmobile stones at the neck of the gallbladder measuring 1.2 and 0.7 centimeters. The gallbladder wall is mildly thickened at 3.4 millimeters. No pericholecystic fluid or sonographic Acosta sign. Biliary ducts: Intrahepatic bile ducts are non-dilated. Extrahepatic bile duct is not well visualized. Normal is 6-7 mm or less in diameter, or 10 mm or less post-cholecystectomy. Pancreas: In the region of the head of the pancreas, there is a 2.5 x 1.9 centimeter hypoechoic mass. This may represent a mass within the head of the pancreas versus an enlarged lymph node adjacent. The pancreas itself is otherwise not well seen. IMPRESSION: 1. Limited exam secondary to overlying bowel gas. 2. The gallbladder is packed full of stones which limits evaluation of gallbladder wall thickening and stone mobility. The gallbladder wall is at least mildly thickened measuring at 3.4 millimeters. Two probable nonmobile stones within the neck of the gallbladder measuring up to 1.2 centimeters. No pericholecystic fluid or sonographic Acosta sign. These findings are likely chronic in etiology. 3. There is a 2.5 centimeter hypoechoic mass within the region of the head of the pancreas. Differential includes a pancreatic head mass versus enlarged adjacent lymph node. Recommend correlation with prior CT scans if available or follow up CT abdomen pelvis. The remainder of the pancreas is not well visualized secondary to overlying bowel gas. 4. The liver is enlarged with increased echogenicity, likely representing hepatic steatosis. There is a 2.6 centimeter complex cyst within the right hepatic lobe, likely hemorrhagic. Additional simple cysts within the left hepatic lobe with possible thin internal septation. Dictated by: Amandeep Butterfield M.D. on 10/11/2023 at 15:44 Approved by: Amandeep Butterfield M.D. on 10/11/2023 at 15:50
== END ==
PROVIDERS: PCP Internal Medicine; Referring Provider Internal Medicine Infectious Disease; Visit Provider Internal Medicine Infectious Disease
DX: Z22.39 Carrier of other specified bacterial diseases (principal); K80.20 Calculus of gallbladder without cholecystitis without obstruction; R16.0 Hepatomegaly, not elsewhere classified; K86.89 Other specified diseases of pancreas
CPT/HCPCS: 76705

== ENCOUNTER 2024-09-20 09:08 | Emergency (ER) | payer MEDICARE, SELFPAY ==
[2023-09-27 02:28] VITALS: BMI 31.4
[2024-09-20] VITALS (10 sets, daily range): BP systolic 135–160; BP diastolic 84–102; PULSE 64–77; RESP 12–21; TEMP 36.9; O2SAT 93–98; BMI 37.3
--- NOTE | 2024-09-20 09:09 | DI.RAD.S_ITS ---
PROCEDURE: XR CHEST 1V INDICATIONS: chest pain TECHNIQUE: One view of the chest was acquired. COMPARISON: [facility], CR, XR CHEST 1V, 05/11/2023, 23:10. [facility], CR, XR CHEST 1V, 05/11/2023, 17:00. [facility], CR, XR CHEST 1V, 06/24/2023, 16:49. FINDINGS: Surgical changes and devices: A pacer device is seen. The leads are seen in stable positions. Lungs and pleura: On this semiupright portable chest examination, no large pneumothorax is seen. There is blunting of the left costophrenic angle. No focal infiltrates are seen. Mild generalized interstitial prominence can be seen. Mediastinum: Mediastinal contours appear normal. Heart size is moderately enlarged. Bones and chest wall: No suspicious bony lesions. Overlying soft tissues appear unremarkable. IMPRESSION: Cardiomegaly with interstitial prominence. There is a mild left-sided pleural effusion. CHF is suspected. Dictated by: Elieser Sainz M.D. on 09/20/2024 at 8:35 Approved by: Elieser Sainz M.D. on 09/20/2024 at 8:36
--- NOTE | 2024-09-20 09:18 | EKG_ITS ---
[place] [id number] [place] [id number] Test Date: 2024-09-20 Pat Name: Tushar Perez Department: [facility] Room: Gender: Male [employer]: ARIEL : 1960 Requested By: Order Number: [id number] Reading MD: Damian Zamorano MD Measurements Intervals [place] Rate: 68 P: SC: QRS: 8 QRSD: 94 T: -73 QT: 390 QTc: 414 Interpretive Statements ventricular-paced complexes with occasional [place] complexes, supraventricular rhythm Cannot rule out Inferior infarct , age undetermined ST & T wave abnormality, consider anterolateral ischemia Electronically Signed On 09-21-2024 7:32:01 PST by Damian Zamorano MD
[2024-09-20 09:32] LABS: Add Manual Diff / Slide Review NO; Basophils Absolute Auto 100 /uL (0-100); Eosinophils Absolute Auto 400 /uL (0-450); Eosinophils Percent Auto 5.8 % (2-4); Hematocrit 38.3 % (41-53); Hemoglobin 12.4 g/dL (13.5-17.5); Lymphocytes Absolute Auto 1900 /uL (1100-4500); Lymphocytes Percent Auto 29.5 % (25-40); Mean Corpuscular HGB Conc 32.3 % (30-36); Mean Corpuscular Hemoglobin 29.1 PG (26-34); Mean Corpuscular Volume 90.2 fL (80-100); Monocytes Absolute Auto 600 /uL (0-900); Monocytes Percent Auto 9.5 % (3-14); Neutrophils Absolute Auto 3600 /uL (1500-7000); Neutrophils Percent Auto 54.2 % (50-75); Platelet Count 84 X10^3/uL (150-400); Red Blood Cell Count 4.25 X10^6/uL (4.5-5.9); White Blood Cell Count 6.6 X10^3/uL (4.5-11.0)
[2024-09-20 09:38] LABS: INR 1.1 (0.9-1.3); Prothrombin Time 12.2 SECONDS (9.4-12.5)
[2024-09-20 09:40] LABS: PTT Partial Thromboplastin Tim 35 SECONDS (25.1-36.5)
[2024-09-20 09:42] LABS: Alanine Aminotransferase 17 IU/L (<50); Albumin 4.3 g/dL (3.5-5.0); Albumin Globulin Ratio 1.9 (1.0-2.8); Alkaline Phosphatase 81 U/L (38-126); Aspartate Aminotransferase 25 IU/L (17-59); BUN Creatinine Ratio 17.1 (6-22); Bilirubin Total 0.8 mg/dL (0.2-1.3); Blood Urea Nitrogen 19 mg/dL (9-20); Calcium 9.8 mg/dL (8.4-10.2); Carbon Dioxide 29 mmol/L (22-32); Chloride 104 mmol/L (98-107); Creatine Kinase 53 U/L (55-170); Estimated Glomerular Filt Rate > 60 mL/min (>60); Globulin 2.3 g/dL (1.7-4.1); Glucose 123 mg/dL (80-110); HEMOLYSIS < 15 (0-50); Lipase 61 U/L (23-300); Magnesium 1.9 mg/dL (1.6-2.3); Potassium 4.5 mmol/L (3.4-5.1); Sodium 138 mmol/L (137-145); Total Protein 6.6 g/dL (6.3-8.2)
[2024-09-20 09:54] LABS: NT-proBNP (BNP-Adult 18+) 2230 pg/mL (<125); Troponin I < 0.012 ng/mL (0.01-0.034)
--- NOTE | 2024-09-20 10:32 | PC.NURSE ---
PER [employer]: NEED PACEMAKER REPLACED; BATTERY A COUPLE MONTHS. FUNCTIONING PROGRAMMED. NN JAYLENE MODE. PACING AT 64. NO EVENTS RECORDED OR ARRYTHMIA. HIT JAYLENE ON AUGUST 23.
--- NOTE | 2024-09-20 10:33 | PC.NURSE ---
Pt receiving treatment for small cell lymphoma (?). Pt reports having increased fatigue x3 weeks. Pt reports SOB as well.
--- NOTE | 2024-09-20 10:52 | ED_ITS ---
HPI - Chest Pain General Chief Complaint: Chest Pain Stated Complaint: Chest Pain Time Seen by Provider: 09/20/24 10:52 Mode of arrival: EMS History of Present Illness HPI narrative: Patient 63-year-old male history of CLL on [place], history of bradycardia with pacemaker, with new diagnosis of CHF presenting today with left-sided chest pain. He reports that he has been feeling fatigued for a couple of weeks. Be started having increasing shortness of breath he was seen evaluated at outside facility diagnosed with CHF and started on Lasix. He has been taking Lasix he lost 4 lb. Feels like he can ambulate and walk without any dyspnea with exertion. He has been seen by his primary care provider a couple days ago who is now putting in referral for Cardiology. He reports this morning that he took the dog for a walk which he has been doing since he has been able to be more active, however he was getting more and more short of breath and the time he got home he had some chest discomfort. He reports the pain is right over his pacemaker. It is nonradiating. Denies any fever chills or cough. He never had any lower extremity swelling. He has no abdominal pain. Related Data Home Medications Medication Instructions Recorded Confirmed levothyroxine 25 mcg tablet 25 mcg DAILY 05/11/23 09/20/24 pantoprazole 40 mg tablet,delayed 40 mg PO DAILY 05/11/23 09/20/24 release propranolol 80 mg tablet 80 mg PO DAILY 05/11/23 09/20/24 sertraline 100 mg tablet 100 mg DAILY 05/11/23 09/20/24 azithromycin 500 mg tablet See Rx Instructions .Route .COMPLEX 09/20/24 09/20/24 furosemide 20 mg tablet mg 09/20/24 ketoconazole 2 % topical cream 1 applic topical DAILY 09/20/24 09/20/24 Allergies Allergy/AdvReac Type Severity Reaction Status Date / Time No Known Drug Allergies Allergy Verified 05/11/23 17:01 Patient History Medical History Amputation of one or more toes Pacemaker Lymphoma Surgical History History of bowel resection Social History household members: spouse Smoking Status: Never smoker alcohol intake: never Smoking Status: Never smoker Substance Use Type: does not use Exam Initial Vital Signs Initial Vital Signs: Vital Signs Temperature 98.4 F 09/20/24 09:14 Pulse Rate 64 09/20/24 09:14 Respiratory Rate 16 09/20/24 09:14 Blood Pressure 142/87 H 09/20/24 09:14 Pulse Oximetry 98 09/20/24 09:14 Oxygen Delivery Method Room Air 09/20/24 09:14 GENERAL: Alert 63-year-old male and in no acute distress. HEENT: Head atraumatic,EOMI, pupils reactive, face symmetric, moist mucous membranes CARDIOVASCULAR: Regular rate and rhythm without murmurs, rubs or gallops. RESPIRATORY: Breath sounds equal bilaterally, no wheezes rales or rhonchi. ABDOMEN: Soft, nontender. Normoactive bowel sounds all 4 quadrants. No guarding or rebound. EXTREMITIES: Normal range of motion, no clubbing or edema. Neurovascularly intact NEUROLOGICAL: Alert and oriented x4.Normal gait and speech. SKIN: Warm, dry, no laceration, no petechiae, no rashes or lesions. Course Orders Ordered: ED Orders 09/20/24 11:30 Troponin I Stat Discontinued Medications Acetaminophen (Acetaminophen 325 Mg Tablet) 975 mg PO NOW ONE Stop: 09/20/24 11:13 Last Admin: 09/20/24 11:18 Dose: 975 mg Documented By: SHASHI Aspirin (Aspirin 81 Mg Chew Tab) 324 mg PO NOW ONE Stop: 09/20/24 09:10 Last Admin: 09/20/24 09:10 Dose: Not Given Documented By: ANAMIKA Furosemide (Furosemide 40 Mg/4 Ml Vial) 40 mg IV NOW ONE Stop: 09/20/24 11:11 Last Admin: 09/20/24 11:19 Dose: 40 mg Documented By: SHASHI Vital Signs Vital signs: Vital Signs - 8 hr 09/20/24 10:30 09/20/24 10:45 09/20/24 10:45 Pulse Rate 71 70 Respiratory Rate 21 18 Blood Pressure 141/90 H Pulse Oximetry 97 97 09/20/24 11:00 09/20/24 11:00 09/20/24 11:30 Pulse Rate 65 Respiratory Rate 17 Blood Pressure 136/97 H 158/100 H Pulse Oximetry 96 09/20/24 11:30 09/20/24 12:00 09/20/24 12:00 Pulse Rate 65 77 Respiratory Rate 17 15 Blood Pressure 160/102 H Pulse Oximetry 97 96 09/20/24 12:30 09/20/24 12:30 09/20/24 13:00 Pulse Rate 75 Respiratory Rate 12 Blood Pressure 138/90 135/86 Pulse Oximetry 93 09/20/24 13:00 Pulse Rate 70 Respiratory Rate Blood Pressure Pulse Oximetry 93 MDM - Chest Pain Lab Data 09/20/24 09:24 09/20/24 09:24 Labs: Lab Results 09/20/24 09/20/24 Range/Units 09: 11:30 WBC 6.6 (4.5-11.0) X10^3/uL RBC 4.25 L (4.5-5.9) X10^6/uL Hgb 12.4 L (13.5-17.5) g/dL Hct 38.3 L (41-53) % MCV 90.2 (80-100) fL MCH 29.1 (26-34) PG MCHC 32.3 (30-36) % RDW 18.0 H (11.6-14.8) % Plt Count 84 L (150-400) X10^3/uL Neut % (Auto) 54.2 (50-75) % Lymph % (Auto) 29.5 (25-40) % [place] % (Auto) 9.5 (3-14) % Eos % (Auto) 5.8 H (2-4) % Baso % (Auto) 1.0 (0-2) % Neut # (Auto) 3600 (6169-9858) /uL Lymph # (Auto) 1900 (9385-7111) /uL [place] # (Auto) 600 (0-900) /uL Eos # (Auto) 400 (0-450) /uL Baso # (Auto) 100 (0-100) /uL PT 12.2 (9.4-12.5) SECONDS INR 1.1 (0.9-1.3) APTT 35 (25.1-36.5) SECONDS Sodium 138 (137-145) mmol/L Potassium 4.5 (3.4-5.1) mmol/L Chloride 104 (98-107) mmol/L Carbon Dioxide 29 (22-32) mmol/L BUN 19 (9-20) mg/dL Creatinine 1.11 (0.66-1.25) mg/dL Estimated GFR > 60 (>60) mL/min BUN/Creatinine Ratio 17.1 (6-22) Glucose 123 H (80-110) mg/dL Calcium 9.8 (8.4-10.2) mg/dL Magnesium 1.9 (1.6-2.3) mg/dL Total Bilirubin 0.8 (0.2-1.3) mg/dL AST 25 (17-59) IU/L ALT 17 (<50) IU/L Alkaline Phosphatase 81 (38-126) U/L Total Creatine Kinase 53 L (55-170) U/L Troponin I < 0.012 < 0.012 (0.01-0.034) ng/mL NT-Pro-B Natriuret Pep 2230 H (<125) pg/mL Total Protein 6.6 (6.3-8.2) g/dL Albumin 4.3 (3.5-5.0) g/dL Globulin 2.3 (1.7-4.1) g/dL Albumin/Globulin Ratio 1.9 (1.0-2.8) Lipase 61 (23-300) U/L Point of Care Testing Glucose POC 126 Urine Dip Bedside Urine Glucose Negative Bedside Urine Bilirubin - Negative Bedside Urine Ketone - Negative Urine Specific [place] 1.015 Bedside Urine Occult Blood - Negative Bedside Urine pH 6.0 Bedside Urine Protein +/- 15 Bedside Urine Urobilinogen - Negative Bedside Urine Nitrite - Negative Bedside Urine Leukocytes - Negative Esterase Imaging Data Chest x-ray: Radiologist's Impression: PROCEDURE: XR CHEST 1V INDICATIONS: chest pain TECHNIQUE: One view of the chest was acquired. COMPARISON: [facility], , XR CHEST 1V, 05/11/2023, 23:10. [facility], , XR CHEST 1V, 05/11/2023, 17:00. [facility], , XR CHEST 1V, 06/24/2023, 16:49. FINDINGS: Surgical changes and devices: A pacer device is seen. The leads are seen in stable positions. Lungs and pleura: On this semiupright portable chest examination, no large pneumothorax is seen. There is blunting of the left costophrenic angle. No focal infiltrates are seen. Mild generalized interstitial prominence can be seen. Mediastinum: Mediastinal contours appear normal. Heart size is moderately enlarged. Bones and chest wall: No suspicious bony lesions. Overlying soft tissues appear unremarkable. IMPRESSION: Cardiomegaly with interstitial prominence. There is a mild left-sided pleural effusion. CHF is suspected. Dictated by: Elieser Sainz M.D. on 09/20/2024 at 8:35 ECG Data Attestation: I personally reviewed and interpreted this ECG as follows: Interpretation: Paced rhythm rate 68 no ischemia no Sgarbossa criteria MDM Narrative Medical decision making narrative: MDM CC: Left-sided chest pain Complicating co-morbidities: CLL, pacemaker secondary to bradycardia Medical records reviewed: Previous ED visits and admissions for reviewed prior admissions for recurrent salmonella gastritis Differential considered: Acute coronary syndrome CHF PE Exam documented above, pertinent findings include: Alert well-appearing 63-year-old male with out reproducible left-sided chest pain lung sounds are clear no hypoxia or tachypnea or conversational dyspnea Lab Test results independently reviewed as above. Pertinent findings: BNP 2230 Troponin negative Electrolytes within normal limits no LINH creatinine 1.11 Independently reviewed EKG as above: Paced rhythm without ischemia Imaging studies independently reviewed: Cardiomegaly trace pleural effusion Pacemaker interrogation: NEED PACEMAKER REPLACED; BATTERY A COUPLE MONTHS. FUNCTIONING PROGRAMMED. iN JAYLENE MODE. PACING AT 64. NO EVENTS RECORDED OR ARRYTHMIA. HIT JAYLENE ON AUGUST 23. Consultations: Dr. Velasco, cardiology updated on patient's symptoms test results and pacemaker concern. Reports that patient definitely does need a new battery nonemergent but definitely urgent. Recommends PCP to put in urgent referral. She is making note in chart at [facility] so that patient can get in the EP. Treatments: Lasix and Tylenol Re-evaluations: No further chest pain Discussion: Patient is 63-year-old male history of bradycardia pacemaker CHF presenting today with chest pain. He initially was doing well with Lasix walking the dog without any shortness of breath or chest pain. However today sounds as though he did have some chest discomfort which started after walking the dog. He has had no chest pain in the emergency department. Possible mild exacerbation of CHF BNP is 2230 chest x-ray shows cardiomegaly with trace pleural effusion he has a negative troponin. Overall appears well here in the emergency department. He was given a dose of Lasix which he is urinated quite a bit for. He has not hypoxic or having any sort of difficulty breathing, low suspicion for pulmonary embolism. Patient's pacemaker was interrogated and found to be on ANEUDY cardiology was consulted. Family reports that there is already referrals in to Cardiology. Recommend talking to primary tomorrow calling [facility] on Saturday. Discharge Plan Departure Patient Disposition: Home Clinical Impression: Chest pain, Pacemaker at end of battery life Instructions: DI for Chest Pain Activity Restrictions/Additional Instructions: 1. Tomorrow call PCP for stat referral to [facility] for new pacemaker battery 2. On Saturday call [facility] to make sure they got the referral and they will quickly get you in to replace your battery 3. Please keep taking medication and Lasix as previously prescribed 4. Return to ED if you should have a any episodes of passing out chest pain shortness of breath or any other new or worsening symptoms Prescriptions: No Action propranolol 80 mg tablet 80 mg PO DAILY pantoprazole 40 mg tablet,delayed release (DR/EC) 40 mg PO DAILY sertraline 100 mg tablet 100 mg DAILY levothyroxine 25 mcg tablet 25 mcg DAILY ketoconazole 2 % Cream 1 applic TOPICAL DAILY azithromycin 500 mg Tablet See Rx Instructions .ROUTE .COMPLEX Rx Instructions: Take on Saturday, Saturday, and Saturday (per infectious disease MD) furosemide 20 mg Tablet Rx Instructions: 20mg once a day. in a.m. Referrals: Kimberly Velasco DO [Physician] - Rina Edwards MD [Primary Care Provider] - Stand Alone Forms: Patient Portal/API/Survey
[2024-09-20] MEDS: ACETAMINOPHEN 325 MG TABLET 975 MG PO (11:18)
[2024-09-20] MEDS: FUROSEMIDE 40 MG/4 ML VIAL IV (11:19)
[2024-09-20 12:01] LABS: Troponin I < 0.012 ng/mL (0.01-0.034)
== END 2024-09-20 13:16 | disposition home or self-care (01) ==
PROVIDERS: Emergency Provider Emergency Medicine; PCP Internal Medicine
DX: R07.9 Chest pain, unspecified (principal); R53.83 Other fatigue; R06.02 Shortness of breath; Z79.01 Long term (current) use of anticoagulants; Z45.010 Encounter for checking and testing of cardiac pacemaker pulse generator [battery]
CPT/HCPCS: 36415; 71045; 80053; 81003; 82550; 82962; 83690; 83735; 83880; 84484; 85025; 85610; 85730; 93005; 96374; 99284; J1940

== ENCOUNTER 2025-05-30 12:52 | Emergency (ER) | payer MEDICARE, SELFPAY ==
[2023-09-27 02:28] VITALS: BMI 31.4
[2025-05-30 12:53] VITALS: BP 151/72; PULSE 64; RESP 18; TEMP 36.8; O2SAT 96; BMI 37.4
--- NOTE | 2025-05-30 13:35 | ED.BACK ---
HPI - Back Pain/Injury General Chief Complaint: Back Pain/Injury Stated Complaint: LL back pain Time Seen by Provider: 05/30/25 13:35 Source: patient and EMS History of Present Illness HPI Narrative: Mr. Perez is a very pleasant 64-year-old gentleman with a past medical history of bradycardia with a pacemaker, CHF, CLL, GERD who presents to the emergency department via EMS from home for mid back pain after a fall that occurred 4 days ago. Patient states on Saturday he was at a friend's house when he accidentally tripped on some uneven soil causing him to fall backwards and hit the middle of his back on a picnic table. He was ambulatory immediately after the fall and did not think he needed to seek medical evaluation however he is continued to have persistent mid back pain and bruising and he is having pain with deep breathing because of this. Today while he was at home he felt like he can not take a deep breath which is what prompted him to call 911. This time he states he has no longer having any difficulty with his breathing but he continues to have mid/lumbar back pain. 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 Denies any bowel or bladder dysfunction, abdominal pain, nausea, vomiting, diarrhea, constipation, dysuria. He did not hit his head when he fell and there was no loss of consciousness. No numbness tingling or weakness of the extremities. No headache or neck pain. No chest pain. Reports taking Tylenol at home which did not help with his pain significantly and he had no stronger pain medications to take. Related Data Home Medications ?Medication ?Instructions ?Recorded ?Confirmed levothyroxine 25 mcg tablet 25 mcg DAILY 05/11/23 09/20/24 pantoprazole 40 mg tablet,delayed 40 mg PO DAILY 05/11/23 09/20/24 release propranolol 80 mg tablet 80 mg PO DAILY 05/11/23 09/20/24 sertraline 100 mg tablet 100 mg DAILY 05/11/23 09/20/24 azithromycin 500 mg tablet See Rx Instructions .Route .COMPLEX 09/20/24 09/20/24 furosemide 20 mg tablet mg 09/20/24 ketoconazole 2 % topical cream 1 applic topical DAILY 09/20/24 09/20/24 Previous Rx's ?Medication ?Instructions ?Recorded hydrocodone 5 mg-acetaminophen 325 1 tab PO Q4-6H PRN pain #10 tabs 05/30/25 mg tablet lidocaine 5 % topical patch 1 patch topical DAILY #30 ea 05/30/25 (Lidoderm) Allergies Allergy/AdvReac Type Severity Reaction Status Date / Time No Known Drug Allergies Allergy Verified 05/30/25 13:01 Review of Systems Review of Systems ROS Unobtainable: All systems reviewed & are unremarkable except as noted in HPI and below Patient History Medical History Amputation of one or more toes Pacemaker Lymphoma Surgical History History of bowel resection Social History household members: spouse alcohol intake: never Exam Narrative Exam Narrative: GENERAL: 64 year old patient appears stated age. Very tall, overweight patient, in no acute distress. HEAD: Atraumatic. Normocephalic. EYES: PERRL. Lateral left eye strabismus at rest, corrected with EOMs. Extraocular motions intact. No scleral icterus. No injection or drainage. ENT: Nose without bleeding, purulent drainage. NECK: Trachea midline. Cervical ROM intact. CARDIOVASCULAR: Regular rate and rhythm. L chest wall packemaker. RESPIRATORY: ?Nonlabored respirations. ?Speaking in clear, full sentences. ?Clear to auscultation. Breath sounds equal bilaterally. No wheezes, rales, or rhonchi. ? GASTROINTESTINAL: Abdomen soft, non-tender, nondistended. EXTREMITIES: No edema or joint tenderness BL upper and lower extremities. BACK: Approximately 15 cm of ecchymoses and superficial abrasion across the mid back region near junction of lumbar and thoracic spine. This area is tender both midline and paraspinal. Reports nonfocal tenderness to palpation of bilateral posterior ribcage. NEURO: AOx3. ?Clear speech. ?Moves all 4 extremities appropriately. SKIN: Mid back ecchymosis described above otherwise skin is warm and dry, no open wounds. Initial Vital Signs Initial Vital Signs: Vital Signs Temperature 98.3 F 05/30/25 12:53 Pulse Rate 64 05/30/25 12:53 Respiratory Rate 18 05/30/25 12:53 Blood Pressure 151/72 H 05/30/25 12:53 Pulse Oximetry 96 05/30/25 12:53 Oxygen Delivery Method Room Air 05/30/25 12:53 Course Orders Ordered: ED Orders 05/30/25 13:47 CT chest abd pel wo con Stat Discontinued Medications Hydrocodone Bitart/Acetaminophen (Hydrocodone/Acet 5/325 Tablet) 1 tab PO NOW ONE Stop: 05/30/25 13:48 Last Admin: 05/30/25 13:59 Dose: 1 tab Lidocaine (Lidocaine 5% Patch) 1 each TOP NOW ONE Stop: 05/30/25 13:48 Last Admin: 05/30/25 13:59 Dose: 1 each Vital Signs Vital signs: Vital Signs - 8 hr 05/30/25 12:53 05/30/25 16:14 Temperature 98.3 F Pulse Rate 64 60 Respiratory Rate 18 19 Blood Pressure 151/72 H 126/79 Pulse Oximetry 96 96 Oxygen Delivery Method Room Air Room Air MDM - Back Pain/Injury Medical Records Attestation: I reviewed the patient's medical records. Imaging Data CT Ch/Ab/P: Radiologist's Impression: PROCEDURE: CT CHEST ABD PEL WO CON INDICATIONS: fall backward; central back pain; BL rib pain w deep breath TECHNIQUE: After the administration of oral contrast, 5 mm thick sections acquired from the lung apices to the symphysis pubis. 5 mm thick coronal and sagittal reformats acquired, with additional 7 mm coronal MIP reformats through the lungs. For radiation dose reduction, the following was used: automated exposure control, adjustment of mA and/or kV according to patient size. COMPARISON: [facility], CT, CT ABDOMEN PANCREATIC PROTOCOL, 10/16/2023, 10:06. [facility], CR, XR CHEST 1 VIEW, 10/01/2024, 16:49. FINDINGS: Image quality: Diagnostic. Motion artifact. Macro no contrast. CHEST: Lower Neck: Multiple shotty lymph nodes. Thyroid: No thyroid nodules which require sonographic follow up, per consensus guidelines. Axillae: -Left axillary node measuring 1.5 cm, (2/47). -Right axillary node measuring 1.5 cm, (3/50). Chest Wall: Left pacemaker. Left back subcutaneous nodule. Bones: Left 6th rib fracture. Appears chronic. No suspicious osseous lesion. Lungs and Pleura: No pneumothorax or pleural effusions. A few areas ill-defined opacity. A few areas of nodular opacity or pulmonary nodules. Right apex 0.5 cm, (5/35). The central airways are clear. Heart: Heart size is normal. No pericardial effusion. Thoracic Vessels: The aorta and pulmonary arteries demonstrate normal size. Mediastinum and Mary Carmen: -Left upper mediastinal node measuring 2.1 cm, (2/16). -Subcarinal node measuring 2.1 cm, (2/52). Esophagus: No wall thickening. No hiatal hernia. ABDOMEN: Liver: Hepatic hypodensities. These have the appearance of benign cysts on the remote CT and appear unchanged. These are not well-defined on this noncontrast exam. Gallbladder: Absent. Biliary ducts: No biliary dilation. Pancreas: No ductal dilation. Spleen: Measures 19.1 cm, (3/73), increased. Adrenal Glands: No adrenal nodules. Kidneys and Ureters: No hydronephrosis. No solid mass. No complex renal cystic lesion which requires follow up. Stomach and Bowel: No dilated loops of bowel seen. No diverticulitis seen. The appendix is absent. Peritoneum: No abnormal intraperitoneal fluid. No free air. Ventral Wall: No hernia. Abdominal Nodes: Mesenteric and retroperitoneal adenopathy. -Left periaortic 2.4 cm, (2/136), previously 1.4 cm. -Right retrocaval node measuring 2 cm, (2/122), 0.9 cm. Vessels: Aorta and inferior vena cava are normal in size. PELVIS: Pelvic Organs: Prominent prostate gland. Bladder: No stone. Pelvic Nodes: Pelvic adenopathy. For example: - Left pelvic sidewall node measuring 2.1 cm, (2/219). Miscellaneous: Fat containing left inguinal hernia. Bones: No aggressive osseous abnormality. IMPRESSION: 1. No acute traumatic injury is identified. Left 6th rib fracture appears chronic. 2. Ill-defined airspace opacities. Possible right apex pulmonary nodule measuring 0.5 cm. 3. Diffuse adenopathy, increased. Splenomegaly, increased. Findings highly suspicious for worsening lymphoma. Dictated by: Sarwat Ruiz M.D. on 05/30/2025 at 13:43 Approved by: Sarwat Ruiz M.D. on 05/30/2025 at 14:04 [facility] Narrative Medical decision making narrative: 64-year-old gentleman with a past medical history of bradycardia with a pacemaker, CHF, CLL, GERD who presents to the emergency department via EMS from home for mid back pain after a fall that occurred 4 days ago. Differential diagnosis includes but is not limited to lumbar fracture, thoracic fracture, rib fracture, contusion, sprain, strain, etc. On exam patient is in no acute distress, nontoxic appearing, vital signs appropriate. He has significant ecchymoses that appears to be healing across the mid back region with tenderness in this area. Also has a nonfocal tenderness to palpation of bilateral posterior ribcage. He is ambulatory and has no numbness tingling or weakness of bilateral lower extremities. There was no head trauma. He does not take blood thinners. No chest or abdominal pain. Due to location of patient's pain and pain with breathing, we will obtain CT chest abdomen pelvis to obtain both spine and ribcage imaging. Will treat pain with Atlantic and Lidoderm. Patient's pain improved significantly, he continues ambulating without difficulty. Urinating without difficulty in the ED. Imaging reveals no acute traumatic injury, the patient does have a left 6th rib fracture that appears to be chronic. Patient does have significant diffuse adenopathy, splenomegaly, findings consistent for worsening lymphoma. Imaging results were printed and discussed with the patient and his at bedside. At this time patient's pain is controlled and he feels well to go home, they are aware of the concerned for worsening lymphoma and plan to follow up with PCP and Oncology. Recommended patient continue taking Tylenol and use prescribed Atlantic for breakthrough pain in addition to Lidoderm. All questions answered. Patient and verbalized understanding of all information and ED return precautions. Reapeat VS all WNL. He is stable for discharge home with her. Discharge Plan Departure Patient Disposition: Home Clinical Impression: Fall against object, Fracture of left sixth rib, Adenopathy Contusion of mid back Qualifiers: Encounter type: initial encounter Laterality: unspecified laterality Qualified Code(s): S20.229A - Contusion of unspecified back wall of thorax, initial encounter Instructions: DI for Low Back Pain Activity Restrictions/Additional Instructions: Dear Ana, Thank you for coming to the emergency department. Today you were evaluated for back pain after a fall a few days ago. We will obtain CT scan of your chest/abdomen/pelvis which revealed no broken bones in your back, it did show what appears to be an old/chronic left 6th rib fracture. Your CT scan did however show worsening/enlarged lymph nodes throughout the body and an enlarged spleen which is concerning for worsening lymphoma. It is very important to follow up with your primary care doctor and cancer doctor for further evaluation. You have been prescribed a short course of hydrocodone-acetaminophen. This is an opioid pain medication. I would also like you to use Tylenol and the prescribed lidocaine patches to help with your back pain. Using ice and or heat therapy may also help. You have been prescribed a short course of narcotic medications. These are potentially dangerous and addictive medications that should be used carefully. While on these medications you cannot drive or operate heavy machinery. Additionally, you cannot sign legal documents or perform any duties such as this. Many people get constipated on narcotic medications so it would be advisable to discuss stool softeners with the pharmacist when you package pick up your prescription. Please understand that we cannot provide further refills of narcotics or controlled substances through the ED and your pain management will need to be through your Primary Care Provider Please follow up with your primary care doctor within the next 2-3 days for ER follow-up. (If you do not have a PCP you can call [phone]. ?to schedule an appointment with an [facility] Primary Care Provider) IF YOU DEVELOP ANY NEW OR WORSENING SYMPTOMS, RETURN TO THE ER! Please read the attached instructions, they highlight more specific treatments and interventions for you at home. Thank you for letting me participate in your care, Sonya Ramires PA-C Prescriptions: New hydrocodone-acetaminophen 5-325 mg tablet 1 tab PO Q4-6H PRN (Reason: pain) Qty: 10 0RF lidocaine [Lidoderm] 5 % adhesive patch,medicated 1 patch topical DAILY Qty: 30 0RF Rx Instructions: leave on most painful area for up to 12 hrs No Action propranolol 80 mg tablet 80 mg PO DAILY pantoprazole 40 mg tablet,delayed release (DR/EC) 40 mg PO DAILY sertraline 100 mg tablet 100 mg DAILY levothyroxine 25 mcg tablet 25 mcg DAILY ketoconazole 2 % Cream 1 applic TOPICAL DAILY azithromycin 500 mg Tablet See Rx Instructions .ROUTE .COMPLEX Rx Instructions: Take on Saturday, Saturday, and Saturday (per infectious disease MD) furosemide 20 mg Tablet Rx Instructions: 20mg once a day. in a.m. Referrals: Rina Edwards MD [Non-Staff, Internal Medicine] Stand Alone Forms: Patient Portal/API
--- NOTE | 2025-05-30 13:47 | DI.CT.S_ITS ---
PROCEDURE: CT CHEST ABD PEL WO CON INDICATIONS: fall backward; central back pain; BL rib pain w deep breath TECHNIQUE: After the administration of oral contrast, 5 mm thick sections acquired from the lung apices to the symphysis pubis. 5 mm thick coronal and sagittal reformats acquired, with additional 7 mm coronal MIP reformats through the lungs. For radiation dose reduction, the following was used: automated exposure control, adjustment of mA and/or kV according to patient size. COMPARISON: [facility], CT, CT ABDOMEN PANCREATIC PROTOCOL, 10/16/2023, 10:06. [facility], CR, XR CHEST 1 VIEW, 10/01/2024, 16:49. FINDINGS: Image quality: Diagnostic. Motion artifact. Macro no contrast. CHEST: Lower Neck: Multiple shotty lymph nodes. Thyroid: No thyroid nodules which require sonographic follow up, per consensus guidelines. Axillae: -Left axillary node measuring 1.5 cm, (2/47). -Right axillary node measuring 1.5 cm, (3/50). Chest Wall: Left pacemaker. Left back subcutaneous nodule. Bones: Left 6th rib fracture. Appears chronic. No suspicious osseous lesion. Lungs and Pleura: No pneumothorax or pleural effusions. A few areas ill-defined opacity. A few areas of nodular opacity or pulmonary nodules. Right apex 0.5 cm, (5/35). The central airways are clear. Heart: Heart size is normal. No pericardial effusion. Thoracic Vessels: The aorta and pulmonary arteries demonstrate normal size. Mediastinum and Mary Carmen: -Left upper mediastinal node measuring 2.1 cm, (2/16). -Subcarinal node measuring 2.1 cm, (2/52). Esophagus: No wall thickening. No hiatal hernia. ABDOMEN: Liver: Hepatic hypodensities. These have the appearance of benign cysts on the remote CT and appear unchanged. These are not well-defined on this noncontrast exam. Gallbladder: Absent. Biliary ducts: No biliary dilation. Pancreas: No ductal dilation. Spleen: Measures 19.1 cm, (3/73), increased. Adrenal Glands: No adrenal nodules. Kidneys and Ureters: No hydronephrosis. No solid mass. No complex renal cystic lesion which requires follow up. Stomach and Bowel: No dilated loops of bowel seen. No diverticulitis seen. The appendix is absent. Peritoneum: No abnormal intraperitoneal fluid. No free air. Ventral Wall: No hernia. Abdominal Nodes: Mesenteric and retroperitoneal adenopathy. -Left periaortic 2.4 cm, (2/136), previously 1.4 cm. -Right retrocaval node measuring 2 cm, (2/122), 0.9 cm. Vessels: Aorta and inferior vena cava are normal in size. PELVIS: Pelvic Organs: Prominent prostate gland. Bladder: No stone. Pelvic Nodes: Pelvic adenopathy. For example: - Left pelvic sidewall node measuring 2.1 cm, (2/219). Miscellaneous: Fat containing left inguinal hernia. Bones: No aggressive osseous abnormality. IMPRESSION: 1. No acute traumatic injury is identified. Left 6th rib fracture appears chronic. 2. Ill-defined airspace opacities. Possible right apex pulmonary nodule measuring 0.5 cm. 3. Diffuse adenopathy, increased. Splenomegaly, increased. Findings highly suspicious for worsening lymphoma. Dictated by: Sarwat Ruiz M.D. on 05/30/2025 at 13:43 Approved by: Sarwat Ruiz M.D. on 05/30/2025 at 14:04
[2025-05-30] MEDS: HYDROCODONE/ACET 5/325 TABLET 1 TAB PO (13:59)
[2025-05-30] MEDS: LIDOCAINE 5% PATCH 1 EACH TOP (13:59)
[2025-05-30 16:14] VITALS: BP 126/79; PULSE 60; RESP 19; O2SAT 96
== END 2025-05-30 16:14 | disposition home or self-care (01) ==
PROVIDERS: Emergency Provider Physician Assistant
DX: S20.229A Contusion of unspecified back wall of thorax, initial encounter (principal); S22.32XA Fracture of one rib, left side, initial encounter for closed fracture; R59.9 Enlarged lymph nodes, unspecified; W01.198A Fall on same level from slipping, tripping and stumbling with subsequent striking against other object, initial encounter; Z95.0 Presence of cardiac pacemaker
CPT/HCPCS: 71250; 74176; 99283; 99284